=== PATIENT | female | born 1935 | race Caucasian/White ===

== ENCOUNTER 2018-07-14 22:27 | Emergency (ER) | payer MEDICARE, MEDICAID ==
[2018-07-15 00:45] LABS: APPEARANCE,URINE CLEAR; BILIRUBIN,URINE NEGATIVE (NEGATIVE); COLOR,URINE STRAW; GLUCOSE, URINE NEGATIVE (NEGATIVE); KETONES,URINE NEGATIVE (NEGATIVE); LEUKOCYTE ESTERASE,URINE SMALL (NEGATIVE); NITRITE,URINE NEGATIVE (NEGATIVE); PROTEIN,URINE NEGATIVE (NEGATIVE); URINE SPECIFIC GRAVITY 1.006; UROBILINOGEN,URINE NEGATIVE mg/dL (<2.0)
--- NOTE | 2018-07-15 00:47 | ER Document Report ---
ED General - General Chief Complaint: Fever/congestion/cough Stated Complaint: SHORTNESS OF BREATH,FEVER,COUGH Time Seen by Provider: 07/15/18 00:47 Primary Care Provider: JOEL HARRIS MD [ACTIVE STAFF] - Follow up as needed Mode of Arrival: Ambulatory Information source: Patient, Relative Notes: HISTORY OF PRESENT ILLNESS: Patient is an 83-year-old female with a past medical history of coronary artery disease, diabetes, hypertension, and "getting bronchitis every winter" who presents with 3 days of subjective fever and productive cough. Location: Chest Onset: 3 days ago Alleviation: None Provocation: Coughing Quality: Tightness, "I feel like I have a lot of phlegm in my chest" Radiation: None Severity: Mild Timing: Intermittent, episodic when she coughs History of CAD: Yes Known sick contact: Yes, her daughter had "pneumonia a month ago" Associated symptoms: Subjective fevers at home, no nausea or vomiting, no shortness of breath REVIEW OF SYSTEMS: CONSTITUTIONAL : Positive fevers but no chills or sweats, no diaphoresis. EENT: Denies eye, ear, throat, or mouth pain or symptoms. Denies nasal or sinus congestion. CARDIOVASCULAR: Positive for chest "tightness." Denies swelling of the legs. RESPIRATORY: Denies cough, cold, or chest congestion. Denies shortness of breath or difficulty breathing. Denies wheezing. GASTROINTESTINAL: Denies abdominal pain. Denies nausea, vomiting, or diarrhea. Denies constipation. GENITOURINARY: Denies difficulty urinating, painful urination, burning, frequency, or blood in urine. FEMALE GENITOURINARY: Denies vaginal bleeding, abnormal or irregular periods. MUSCULOSKELETAL: Denies neck or back pain or joint pain or swelling. SKIN: Denies rash or skin lesions. HEMATOLOGIC : Denies easy bruising or bleeding. LYMPHATIC: Denies swollen, enlarged glands. NEUROLOGICAL: Denies altered mental status or loss of consciousness. Denies headache. Denies weakness or paralysis or loss of use of either side. Denies problems with gait or speech. Denies sensory or motor loss. PSYCHIATRIC: Denies anxiety or stress or depression. All other systems reviewed and negative. PHYSICAL EXAMINATION: GENERAL: Well-appearing, well-nourished and in no acute distress. HEAD: Atraumatic, normocephalic. No scalp deformity, depression, or crepitance. EYES: Pupils are 3 mm and equal/round/reactive to light, extraocular movements intact, sclera anicteric, conjunctiva are normal. ENT: Nares patent bilaterally, oropharynx. Moist mucous membranes. No tonsil hypertrophy. NECK: Normal range of motion, supple without lymphadenopathy. LUNGS: Breath sounds present, equal, and clear to auscultation bilaterally. No wheezes, rales, or rhonchi. HEART: Regular rate and rhythm without murmurs, rubs, or gallops. 2+ peripheral pulses. Normal capillary refill. ABDOMEN: Soft, nontender, nondistended. Normoactive bowel sounds. No guarding, no rebound. No masses appreciated. BACK: Normal contour, no midline tenderness. Rectal exam deferred. GENITAL/PELVIC: Deferred. EXTREMITIES: Normal range of motion, no pitting or edema. No cyanosis. NEUROLOGICAL: No focal neurological deficits. Moves all extremities spontaneously and on command. PSYCH: Normal mood, normal affect. No suicidal thoughts/ideations. No homocidal thoughts/ideations. No hallucinations. SKIN: Warm, dry, normal turgor, no rashes or lesions noted. ASSESSMENT AND PLAN: This patient is an 83-year-old female who presents with fever and productive cough that could represent viral syndrome versus bronchitis versus community acquired pneumonia versus heart failure. 1. Will obtain labs, cardiac enzymes, chest x-ray, and reassess. 2. Will give empiric azithromycin. TRAVEL OUTSIDE OF THE [place] IN LAST 30 DAYS: No - Related Data Allergies/Adverse Reactions: propoxyphene napsylate [From Darvocet-N 100] Allergy (Unknown, Verified 07/14/18 23:32) oxycodone HCl [From Percocet] Allergy (Verified 07/14/18 23:32) Past Medical History - General Information source: Patient, Relative - Social History Smoking Status: Unknown if Ever Smoked Chew tobacco use (# tins/day): No Frequency of alcohol use: None Drug Abuse: None Lives with: Family Family History: Reviewed & Not Pertinent Patient has suicidal ideation: No Patient has homicidal ideation: No - Past Medical History Cardiac Medical History: Reports: Hx Coronary Artery Disease, Hx Hy percholesterolemia, Hx Hypertension Pulmonary Medical History: Reports: Hx Bronchitis Denies: Hx Tuberculosis EENT Medical History: Reports: None Neurological Medical History: Reports: None. Denies: Hx Seizures Endocrine Medical History: Reports: Hx Diabetes Mellitus Type 2, Hx Hypothyroidism Renal/ Medical History: Reports: None. Denies: Hx Peritoneal Dialysis Malignancy Medical History: Reports: Hx Skin Cancer GI Medical History: Reports: Hx Gastroesophageal Reflux Disease Musculoskeletal Medical History: Reports Hx Arthritis Skin Medical History: Reports None Psychiatric Medical History: Reports: None Denies: Hx Depression Traumatic Medical History: Reports: None Infectious Medical History: Reports: None Past Surgical History: Reports: Hx Cardiac Catheterization - stent x1, Hx Hysterectomy, Hx Orthopedic Surgery - right hip replacement. Denies: Hx Pacem shobha - Immunizations Immunizations up to date: Yes Hx Diphtheria, Pertussis, Tetanus Vaccination: No Hx Pneumococcal Vaccination: 06/10/08 Physical Exam - Vital signs Vitals: Temp Pulse Resp BP Pulse Ox 98.8 F 85 18 149/57 H 96 07/14/18 22:36 07/14/18 22:36 07/14/18 22:36 07/14/18 22:36 07/14/18 22:36 Course - Re-evaluation Re-evalutation: 07/15/18 03:21 Chest x-ray shows possible developing right-sided infiltrate, which considering presenting symptoms is consistent with either bronchitis or developing pneumonia. Lab work, including cardiac enzymes, or normal. Patient will be given antibiotics and will be discharged home with return precautions and follow-up with her primary physician in 1 week. But the patient and her daughter at bedside voiced understanding and agreeing with the plan. - Vital Signs Vital signs: Temp Pulse Resp BP Pulse Ox 98.8 F 85 24 H 177/59 H 95 07/14/18 22:36 07/14/18 22:36 07/15/18 03:01 07/15/18 03:01 07/15/18 03:01 - Laboratory Result Diagrams: 07/15/18 01:04 07/15/18 01:04 Laboratory results interpreted by me: 07/15/18 07/15/18 07/15/18 00:31 01:04 01:04 Hgb 10.9 L Hct 32.2 L Monocytes % 17.3 H Eosinophils % 8.2 H Absolute Monocytes 1.8 H Absolute Eosinophils 0.9 H BUN 23 H Creatinine 1.32 H Est GFR ( Amer) 47 L Est GFR (Non-Af Amer) 39 L Ur Leukocyte Esterase SMALL H - Diagnostic Test Radiology reviewed: Image reviewed, Reports reviewed - EKG Interpretation by Me EKG shows normal: Sinus rhythm Rate: Normal Rhythm: NSR [place]/QRS: No: Right axis deviation, Left axis deviation, RBBB, LBBB, IVCD, LAHB/LAFB, LPHB/LPFB, Bifasicular block Voltage: No: Increased voltage, Consistant with LVH, Decreased voltage, Thr oughout, Limb leads P Waves: No: HERNANDEZ, LAE, Absent, AV Dissociation, Other When compared to previous EKG there are: No significant change Discharge - Discharge Clinical Impression: Cough Community acquired pneumonia Qualifiers: Laterality: right Lung location: middle lobe of lung Qualified Code(s): J18.1 - Lobar pneumonia, unspecified organism Condition: Good Disposition: HOME, SELF-CARE Instructions: Pneumonia ([facility]) Additional Instructions: You have been evaluated in the Emergency Department for fever and cough secondary to a lung infection that could be an early pneumonia. Please follow-up with your primary physician as instructed in 1 week to be rechecked. You also will be given prescriptions for both cough and antibiotics, take these as instructed. Return to the Emergency Department if you experience chest pain, trouble breathing, high fevers, or any other concerning symptoms. Prescriptions: Azithromycin 500 mg PO DAILY #7 tablet Benzonatate [Tessalon Perles 100 mg Capsule] 100 mg PO ASDIR PRN #40 capsule PRN Reason: Referrals: JOEL HARRIS MD [ACTIVE STAFF] - Follow up as needed Print Language: Citizen [place]
--- NOTE | 2018-07-15 01:01 | RADIOLOGY REPORT (SQ) ---
EXAM DESCRIPTION: XR CHEST 1 VIEW COMPLETED DATE/TME: 07/15/2018 00:25 CLINICAL HISTORY: 83 years, Female, shortness of breath COMPARISON: 08/02/2014 chest NUMBER OF VIEWS: 1 TECHNIQUE: Portable chest LIMITATIONS: None. FINDINGS: The heart size is stable. The left costophrenic angle was not included on the exam. Patchy airspace opacity medial right lung base. Mild elevation right hemidiaphragm. No pneumothorax. Osteopenia. Atheromatous change thoracic aorta. IMPRESSION: Patchy airspace opacity medial right lung base. Follow-up recommended. copyright 2010 [employer]- All Rights Reserved
[2018-07-15 01:16] LABS: ABSOLUTE BASOPHILS # (AUTO) 0.1 10^3/uL (0.0-0.2); ABSOLUTE EOSINOPHILS # (AUTO) 0.9 10^3/uL (0.0-0.6); ABSOLUTE LYMPHOCYTES (AUTO) 2.5 10^3/uL (0.5-4.7); ABSOLUTE MONOCYTES (AUTO) 1.8 10^3/uL (0.1-1.4); ABSOLUTE NEUT (AUTO) 5.2 10^3/uL (1.7-8.2); BASOPHILS % (AUTO) 0.7 % (0-2); EOSINOPHILS % (AUTO) 8.2 % (0-6); HEMATOCRIT 32.2 % (36.0-47.0); HEMOGLOBIN 10.9 g/dL (12.0-15.5); LYMPHOCYTES % (AUTO) 23.8 % (13-45); MEAN CORPUSCULAR HEMOGLOBIN 28.5 pg (27.0-33.4); MEAN CORPUSCULAR HGB CONC 33.8 g/dL (32.0-36.0); MEAN CORPUSCULAR VOLUME 84 fl (80-97); MONOCYTES % (AUTO) 17.3 % (3-13); PLATELET COUNT 273 10^3/uL (150-450); RED BLOOD COUNT 3.81 10^6/uL (3.72-5.28); RED CELL DISTRIBUTION WIDTH 13.2 % (11.5-14.0); TOTAL CELLS COUNTED % (AUTO) 100 %; WHITE BLOOD COUNT 10.5 10^3/uL (4.0-10.5)
[2018-07-15 01:33] LABS: ALANINE AMINOTRANSFERASE 23 U/L (9-52); ALBUMIN 4.1 g/dL (3.5-5.0); ALKALINE PHOSPHATASE 57 U/L (38-126); ANION GAP 9 (5-19); ASPARTATE AMINO TRANSFERASE 30 U/L (14-36); BILIRUBIN,DIRECT 0.3 mg/dL (0.0-0.4); BILIRUBIN,TOTAL 0.5 mg/dL (0.2-1.3); BLOOD UREA NITROGEN 23 mg/dL (7-20); CALCIUM 8.8 mg/dL (8.4-10.2); CARBON DIOXIDE 26 mmol/L (22-30); CHLORIDE 104 mmol/L (98-107); GLUCOSE 106 mg/dL (75-110); POTASSIUM 3.8 mmol/L (3.6-5.0); SODIUM 138.8 mmol/L (137-145)
[2018-07-15] MEDS ORDERED: ALBUTEROL SULFATE HFA (90 MCG/PUFF) 200 PUFF/8.5 GM MDI IH PRN (02:42)
[2018-07-15] MEDS ORDERED: AZITHROMYCIN 250 MG TABLET PO ONE (02:42)
[2018-07-15 03:32] VITALS: BP 177/59
== END 2018-07-15 03:45 | disposition home or self-care (01) ==
LOC: ER 22:27
DX: J18.1 Lobar pneumonia, unspecified organism (principal); R05 Cough; R50.9 Fever, unspecified; R09.81 Nasal congestion; R06.02 Shortness of breath; E11.9 Type 2 diabetes mellitus without complications; I25.10 Atherosclerotic heart disease of native coronary artery without angina pectoris; I10 Essential (primary) hypertension
CPT/HCPCS: 99283; 36415; 85025; 80053; 81001; 84484; 71045; A9270; J3490

== ENCOUNTER 2018-09-08 14:33 | Inpatient (IN) | payer MEDICARE, MEDICAID ==
[2018-09-08] MEDS ORDERED: NORMAL SALINE 1000 ML 1,000 ML IV ONE (15:38)
[2018-09-08] MEDS ORDERED: ONDANSETRON HCL INJ/PF 4 MG/2 ML SDV IV ONE ×2 (15:38→18:46)
--- NOTE | 2018-09-08 15:40 | ER Document Report ---
ED Medical Screen (RME) - General Chief Complaint: Nausea/Vomiting Stated Complaint: NAUSEA,VOMITING,ABDOMINAL PAIN Time Seen by Provider: 09/08/18 15:29 Primary Care Provider: ADENIKE HERBERT PA-C [Primary Care Provider] - Follow up as needed Mode of Arrival: Medic Information source: Patient Notes: Patient is an 83-year-old female who presents to the emergency department with nausea, vomiting and diarrhea that started on Saturday. Family reports she has had multiple episodes of syncope. Denies fever. Today patient also reports vaginal bleeding over the last several days. Exam: Abdomen diffusely tender. I have greeted and performed a rapid initial assessment of this patient. A comprehensive ED assessment and evaluation of the patient, analysis of test r esults and completion of the medical decision making process will be conducted by additional ED providers. Dictation of this chart was performed using voice recognition software; therefore, there may be some unintended grammatical errors. TRAVEL OUTSIDE OF THE [place] IN LAST 30 DAYS: No - Related Data Allergies/Adverse Reactions: propoxyphene napsylate [From Darvocet-N 100] Allergy (Unknown, Verified 09/08/18 14:36) oxycodone HCl [From Percocet] Allergy (Verified 09/08/18 14:36) Past Medical History - Social History Chew tobacco use (# tins/day): No Frequency of alcohol use: None Drug Abuse: None - Past Medical History Cardiac Medical History: Reports: Hx Coronary Artery Disease, Hx Hypercholesterolemia, Hx Hypertension Pulmonary Medical History: Reports: Hx Bronchitis Denies: Hx Tuberculosis Neurological Medical History: Denies: Hx Seizures Endocrine Medical History: Reports: Hx Diabetes Mellitus Type 2, Hx Hypothyroidism Renal/ Medical History: Denies: Hx Peritoneal Dialysis Malignancy Medical History: Reports: Hx Skin Cancer GI Medical History: Reports: Hx Gastroesophageal Reflux Disease Musculoskeltal Medical History: Reports Hx Arthritis Psychiatric Medical History: Denies: Hx Depression Past Surgical History: Reports: Hx Cardiac Catheterization - stent x1, Hx Hysterectomy, Hx Orthopedic Surgery - right hip replacement. Denies: Hx Pacemaker - Immunizations Immunizations up to date: Yes Hx Diphtheria, Pertussis, Tetanus Vaccination: No Physical Exam - Vital signs Vitals: Pulse Resp BP Pulse Ox 101 H 18 171/71 H 97 09/08/18 14:51 09/08/18 14:51 09/08/18 14:51 09/08/18 14:51 Course - Vital Signs Vital signs: Temp Pulse Resp BP Pulse Ox 101 H 18 171/71 H 97 09/08/18 14:51 09/08/18 14:51 09/08/18 14:51 09/08/18 14:51 Doctor's Discharge - Discharge Referrals: ADNEIKE HERBERT PA-C [Primary Care Provider] - Follow up as needed
[2018-09-08 16:25] LABS: ABSOLUTE BASOPHILS # (AUTO) 0.2 10^3/uL (0.0-0.2); ABSOLUTE LYMPHOCYTES (AUTO) 1.5 10^3/uL (0.5-4.7); ABSOLUTE NEUT (AUTO) 12.9 10^3/uL (1.7-8.2); EOSINOPHILS % (AUTO) 0.1 % (0-6); HEMATOCRIT 37.2 % (36.0-47.0); HEMOGLOBIN 12.4 g/dL (12.0-15.5); LYMPHOCYTES % (AUTO) 9.9 % (13-45); MEAN CORPUSCULAR HEMOGLOBIN 28.1 pg (27.0-33.4); MEAN CORPUSCULAR HGB CONC 33.2 g/dL (32.0-36.0); MEAN CORPUSCULAR VOLUME 85 fl (80-97); MONOCYTES % (AUTO) 6.5 % (3-13); PLATELET COUNT 375 10^3/uL (150-450); RED BLOOD COUNT 4.41 10^6/uL (3.72-5.28); RED CELL DISTRIBUTION WIDTH 13.8 % (11.5-14.0); SEGMENTED NEUTROPHILS % (AUTO) 82.5 % (42-78); TOTAL CELLS COUNTED % (AUTO) 100 %; WHITE BLOOD COUNT 15.7 10^3/uL (4.0-10.5)
[2018-09-08 17:01] LABS: ALANINE AMINOTRANSFERASE 20 U/L (9-52); ALBUMIN 4.8 g/dL (3.5-5.0); ALKALINE PHOSPHATASE 55 U/L (38-126); ANION GAP 13 (5-19); ASPARTATE AMINO TRANSFERASE 34 U/L (14-36); BILIRUBIN,DIRECT 0.6 mg/dL (0.0-0.4); BILIRUBIN,TOTAL 0.8 mg/dL (0.2-1.3); BLOOD UREA NITROGEN 28 mg/dL (7-20); CALCIUM 10.4 mg/dL (8.4-10.2); CARBON DIOXIDE 24 mmol/L (22-30); CHLORIDE 102 mmol/L (98-107); GLUCOSE 143 mg/dL (75-110); LIPASE 39.4 U/L (23-300); POTASSIUM 3.8 mmol/L (3.6-5.0); SODIUM 139.3 mmol/L (137-145); TOTAL PROTEIN 8.6 g/dL (6.3-8.2)
--- NOTE | 2018-09-08 17:36 | ER Document Report ---
ED GI/ - General Mode of Arrival: Medic Information source: Patient, Relative TRAVEL OUTSIDE OF THE [place] IN LAST 30 DAYS: No - HPI Patient complains to provider of: Abdominal pain, Diarrhea, Vaginal bleeding - 2 weeks ago, none since, Vomiting. No: Dysuria, Pelvic pain Onset: Other - 2 days Timing/Duration: Persistent Quality of pain: Achy Pain Level: 2 Location: Other - Generalized abdomen Vaginal bleeding (Compared to normal period): Spotting - 2 weeks ago, none since Associated symptoms: Diarrhea, Lightheaded, Loss of appetite, Nausea, Vomiting. denies: Dysuria, Fever, Urinary hesitancy, Urinary frequency, Urinary retention Exacerbated by: Denies Relieved by: Denies Similar symptoms previously: No Recently seen / treated by doctor: No <DION PADILLA - Last Filed: 09/08/18 20:26> <CARINA CESPEDES - Last Filed: 09/09/18 03:30> - General Chief Complaint: Nausea/Vomiting Stated Complaint: NAUSEA,VOMITING,ABDOMINAL PAIN Time Seen by Provider: 09/08/18 15:29 Notes: Patient presents with a 2-day history of nausea vomiting and diarrhea. Patient states she is vomited over 5 times today. Patient does complain of generalized abdominal pain and distention. Patient also reports having an episode of vaginal bleeding 2 weeks ago only for a few days. Patient states she had a very small amount of vaginal bleeding. Patient reports decreased appetite. No fever. Patient has had some dizziness with ambulation. Patient normally ambulates unassisted at home. (DION PADILLA) - Related Data Allergies/Adverse Reactions: propoxyphene napsylate [From Darvocet-N 100] Allergy (Unknown, Verified 09/08/18 14:36) oxycodone HCl [From Percocet] Allergy (Verified 09/08/18 14:36) Past Medical History - General Information source: Patient - Social History Smoking Status: Never Smoker Chew tobacco use (# tins/day): No Frequency of alcohol use: None Drug Abuse: None Lives with: Family Family History: Reviewed & Not Pertinent Patient has suicidal ideation: No Patient has homicidal ideation: No - Past Medical History Cardiac Medical History: Reports: Hx Coronary Artery Disease, Hx Hypercholesterolemia, Hx Hypertension Pulmonary Medical History: Reports: Hx Bronchitis Denies: Hx Tuberculosis Neurological Medical History: Denies: Hx Seizures Endocrine Medical History: Reports: Hx Diabetes Mellitus Type 2, Hx Hypothyroidism Renal/ Medical History: Denies: Hx Peritoneal Dialysis Malignancy Medical History: Reports: Hx Skin Cancer GI Medical History: Reports: Hx Gastroesophageal Reflux Disease Musculoskeletal Medical History: Reports Hx Arthritis Psychiatric Medical History: Denies: Hx Depression Past Surgical History: Reports: Hx Cardiac Catheterization - stent x1, Hx Hysterectomy, Hx Orthopedic Surgery - right hip replacement. Denies: Hx Pacemaker - Immunizations Immunizations up to date: Yes Hx Diphtheria, Pertussis, Tetanus Vaccination: No Hx Pneumococcal Vaccination: 06/10/08 <DION PADILLA - Last Filed: 09/08/18 20:26> Review of Systems - Review of Systems Constitutional: No symptoms reported. denies: Fever EENT: No symptoms reported Cardiovascular: Lightheaded. denies: Chest pain, Palpitations Respiratory: No symptoms reported. denies: Cough Gastrointestinal: Abdominal pain, Diarrhea, Nausea, Vomiting, Poor appetite Genitourinary: No symptoms reported. denies: Dysuria, Flank pain Female Genitourinary: Vaginal bleeding - 2 weeks ago, none since. denies: Vaginal discharge Musculoskeletal: No symptoms reported. denies: Back pain Skin: No symptoms reported Hematologic/Lymphatic: No symptoms reported Neurological/Psychological: Weakness <DION PADILLA - Last Filed: 09/08/18 20:26> Physical Exam - General General appearance: Appears well, Alert In distress: Mild - HEENT Head: Normocephalic, Atraumatic Eyes: Normal Conjunctiva: Normal Nasal: Normal Mouth/Lips: Normal Mucous membranes: Normal Neck: Normal, Supple. No: Lymphadenopathy - Respiratory Respiratory status: No respiratory distress Chest status: Nontender Breath sounds: Normal. No: Rales, Rhonchi, Stridor, Wheezing Chest palpation: Normal - Cardiovascular Rhythm: Regular Heart sounds: S1 appreciated, S2 appreciated Murmur: No - Abdominal Inspection: Obese Distension: No distension Bowel sounds: Normal Tenderness: Tender - Diffusely tender Organomegaly: No organomegaly - Genitourinary External exam: Other - Out erythema to the vaginal introitus Speculum exam: Other - Post surgical changes consistent with history of hysterec alicia Vaginal bleeding: None Bimanuel exam: Normal, Other - No palpable bulges or masses, no blood noted to glove after bimanual examination. No: Adnexal mass - Back Back: Normal, Nontender. No: CVA tenderness - Extremities General upper extremity: Normal inspection, Normal ROM General lower extremity: Normal inspection - Neurological Neuro grossly intact: Yes Michael Coma Scale Eye Opening: Spontaneous Michael Coma Scale Verbal: Oriented Michael Coma Scale Motor: Obeys Commands [place] Coma Scale Total: 15 - Psychological Associated symptoms: Normal affect, Normal mood - Skin Skin Temperature: Warm Skin Moisture: Dry Skin Color: Pale <DION PADILLA - Last Filed: 09/08/18 20:26> - Vital signs Vitals: Pulse Resp BP Pulse Ox 101 H 18 171/71 H 97 09/08/18 14:51 09/08/18 14:51 09/08/18 14:51 09/08/18 14:51 Course - Laboratory Result Diagrams: 09/08/18 16:04 09/08/18 16:04 <DION PADILLA - Last Filed: 09/08/18 20:26> - Laboratory Result Diagrams: 09/08/18 16:04 09/08/18 16:04 <CARINA CESPEDES - Last Filed: 09/09/18 03:30> - Re-evaluation Re-evalutation: 09/08/18 18:46 Patient complains of nausea while drinking oral contrast for CT scan. Patient continues with diffuse generalized abdominal tenderness with some nominal bloating. 09/08/18 19:20 Patient vomiting oral contrast at this time. Nausea medications have been ordered. 09/08/18 20:26 Bedside report and handoff given to Obinna FOSTER (DION PADILLA) Patient CT abdomen pelvis does show possible small bowel obstruction. Patient was unable to take any of the oral contrast due to vomiting. Discussed this case with surgeon Dr. Gamez who states the patient should be admitted, he will speak with hospitalist Dr. Arevalo. Patient will be admitted through Dr. Arevalo for's continued abdominal pain and vomiting, possible small bowel obstruction with surgery consult. NG tube ordered per Dr. Gamez and Dr. Arevalo. (CARINA CESPEDES) - Vital Signs Vital signs: Temp Pulse Resp BP Pulse Ox 98.2 F 92 16 141/57 H 95 09/09/18 02:17 09/09/18 02:17 09/09/18 02:17 09/09/18 03:09 09/09/18 02:17 - Laboratory Laboratory results interpreted by me: 09/08/18 09/08/18 09/08/18 16:04 16:04 16:04 WBC 15.7 H Seg Neutrophils % 82.5 H Lymphocytes % 9.9 L Absolute Neutrophils 12.9 H BUN 28 H Creatinine 1.41 H Est GFR ( Amer) 43 L Est GFR (Non-Af Amer) 36 L Glucose 143 H Calcium 10.4 H Direct Bilirubin 0.6 H Creatine Kinase 147 H Total Protein 8.6 H Urine Protein Ur Leukocyte Esterase 09/08/18 18:09 WBC Seg Neutrophils % Lymphocytes % Absolute Neutrophils BUN Creatinine Est GFR ( Amer) Est GFR (Non-Af Amer) Glucose Calcium Direct Bilirubin Creatine Kinase Total Protein Urine Protein 100 H Ur Leukocyte Esterase TRACE H Discharge <DION PADILLA - Last Filed: 09/08/18 20:26> - Discharge Admitting Provider: Hospitalist - Dr. Arevalo Unit Admitted: Medical Floor <CARINA CESPEDES - Last Filed: 09/09/18 03:30> - Discharge Clinical Impression: Abdominal pain Qualifiers: Abdominal location: generalized Qualified Code(s): R10.84 - Generalized abdominal pain Intractable nausea and vomiting Qualifiers: Vomiting type: unspecified Qualified Code(s): R11.2 - Nausea with vomiting, unspecified Condition: Stable Disposition: ADMITTED INPATIENT
[2018-09-08 18:08] LABS: INTERNATIONAL RATION (INR) 0.92; PROTHROMBIN TIME 12.8 SEC (11.4-15.4)
[2018-09-08 18:09] LABS: PARTIAL THROMBOPLASTIN TIME 26.9 SEC (23.5-35.8)
[2018-09-08 18:37] LABS: CREATINE KINASE MB 0.9 ng/mL (<4.55)
[2018-09-08 18:41] LABS: TROPONIN I 0.015 ng/mL
[2018-09-08] MEDS ORDERED: ACETAMINOPHEN 325 MG TABLET PO ONE (18:46)
[2018-09-08] MEDS ORDERED: CARVEDILOL 6.25 MG TABLET PO ONE (18:51)
--- NOTE | 2018-09-08 19:35 | EKG REPORT ---
SEVERITY:- ABNORMAL ECG - SINUS RHYTHM PROBABLE LEFT ATRIAL ABNORMALITY [facility] : Confirmed by: Keith Elam MD 08-Sep-2018 19:35:00
[2018-09-08 20:35] LABS: APPEARANCE,URINE CLEAR; BILIRUBIN,URINE NEGATIVE (NEGATIVE); COLOR,URINE YELLOW; GLUCOSE, URINE NEGATIVE (NEGATIVE); KETONES,URINE NEGATIVE (NEGATIVE); LEUKOCYTE ESTERASE,URINE TRACE (NEGATIVE); NITRITE,URINE NEGATIVE (NEGATIVE); PROTEIN,URINE 100 mg/dL (NEGATIVE); URINE SPECIFIC GRAVITY 1.012; UROBILINOGEN,URINE NEGATIVE mg/dL (<2.0)
[2018-09-08] MEDS ORDERED: ACETAMINOPHEN 325 MG TABLET ONE (21:04)
[2018-09-08] MEDS ORDERED: CARVEDILOL 6.25 MG TABLET ONE (21:04)
--- NOTE | 2018-09-08 22:10 | RADIOLOGY REPORT (SQ) ---
EXAM DESCRIPTION: CT ABDOMEN PELVIS WITH IV CONTRAST COMPLETED DATE/TME: 09/08/2018 00:00 CLINICAL HISTORY: 83 years, Female, vomiting, abd pain, hx vaginal bleeding (hyst) COMPARISON: 05/05/2012 CT TECHNIQUE: 402 Images stored on PACS. All CT scanners at this facility use dose modulation, iterative reconstruction, and/or weight based dosing when appropriate to reduce radiation dose to as low as reasonably achievable (ALARA). [facility]: Dose Right [facility]: CareDose [facility]: Dose Right [facility]: Teradose 4D [facility]: [employer] LIMITATIONS: None. FINDINGS: Limited evaluation of the lung bases shows minimal left basilar infiltrate. Osseous structures are grossly intact. The liver is unremarkable. Splenic granulomata. The adrenal glands, pancreas, kidneys are unremarkable. The gallbladder is present. Severe atheromatous changes. Postsurgical changes of the right hip with streak artifact limiting portions of the pelvis. Extensive colonic diverticulosis. No CT evidence for diverticulitis. There are several borderline to mildly dilated fluid and contrast filled loops of small bowel in the upper abdomen with relative decompression of small bowel loops distally. While findings could reflect ileus, a partial or incomplete obstruction should also be considered. No free air or free fluid. IMPRESSION: Several borderline to mildly dilated fluid-filled loops of small bowel with relative decompression of distal small bowel loops. A partial or incomplete obstruction should be considered. No free air or free fluid. Colonic diverticulosis without CT evidence for diverticulitis. Left basilar infiltrate. Evidence of prior granulomatous disease. Extensive atheromatous change. TECHNICAL DOCUMENTATION: Quality ID # [id number]: Final reports with documentation of one or more dose reduction techniques (e.g., Automated exposure control, adjustment of the mA and/or kV according to patient size, use of iterative reconstruction technique) copyright 2011 [employer]- All Rights Reserved
[2018-09-08] MEDS ORDERED: LIDOCAINE 2% INJ-PF (20 MG/ML) 10 ML AMPUL NEB ONE (23:20)
[2018-09-08] MEDS ORDERED: PHARMACY COMMUNICATION ORDER MC NR (23:30)
[2018-09-08] MEDS ORDERED: ACETAMINOPHEN 650 MG SUPP.RECT PR PRN (23:39)
[2018-09-08] MEDS ORDERED: MAG HYDROX/AL HYDROX/SIMETH SUSP 30 ML UDCUP PO PRN (23:39)
[2018-09-08] MEDS ORDERED: IPRATROPIUM/ALBUTEROL 0.5-2.5 MG/3 ML AMPUL NEB PRN (23:39)
[2018-09-08] MEDS ORDERED: DIAZEPAM 2 MG TABLET PO PRN (23:42)
[2018-09-08] MEDS ORDERED: NORMAL SALINE 1000 ML 1,000 ML IV PRN (23:45)
--- NOTE | 2018-09-08 23:50 | PDOC CONSULTATION ---
Consultation Consult Date: 09/08/18 Consult reason:: Abdominal pain History of Present Illness Admission Date/PCP: ADENIKE BREWER PA-C History of Present Illness: SANDRA SPRINGER is a 83 year old female Who presents emergency department via ground rescue complaining of a several day history of abdominal pain, nausea vomiting change in bowel habits. Pain mostly right-sided. Patient has progressively become weaker, with anorexia and weight loss. Patient is cared for by her daughter who accompanies her this evening. Patient seen in the emergency department where she had a CT scan of the abdomen and pelvis with some oral contrast demonstrated possible findings of partial small bowel obstruction. Surgery was consulted. Patient was advised admission to the medical service with surgery consulting. Patient's local medical doctor is Adenike brewer; patient is status post a colonoscopy several years ago with unremarkable findings. She has a remote history of a partial colon resection as a youth for benign indications.. In the emergency department she feels better but still having nausea and heaving. She has been hemodynamically stable. She denies previous gastrointestinal symptoms of this nature; she does have a history of peptic ulcer disease with bleeding requiring blood transfusions x2 in the past. In addition approximately 2 weeks ago patient had vaginal bleeding for unknown etiology. This was evaluated by her primary care physician to be of no clinical significance. Bleeding has now abated Past Medical History Cardiac Medical History: Reports: Coronary Artery Disease, Hyperlipidema, Hypertension Pulmonary Medical History: Reports: Bronchitis Denies: Tuberculosis Neurological Medical History: Denies: Seizures Endocrine Medical History: Reports: Diabetes Mellitus Type 2, Hypothyroidism Malignancy Medical History: Reports: Skin Cancer GI Medical History: Reports: Gastroesophageal Reflux Disease Musculoskeltal Medical History: Reports: Arthritis Psychiatric Medical History: Denies: Depression Hematology: Reports: Anemia Past Surgical History Past Surgical History: Also appendectomy, intestinal surgery as a youth Past Surgical History: Reports: Cardiac Catheterization - stent x1, Hysterectomy, Orthopedic Surgery - right hip replacement Denies: Pacemaker Social History Lives with: Family Smoking Status: Never Smoker Frequency of Alcohol Use: None Hx Recreational Drug Use: No Hx Prescription Drug Abuse: No Family History Family History: Reviewed & Not Pertinent Parental Family History Reviewed: Yes Children Family History Reviewed: Yes Sibling(s) Family History Reviewed.: Yes Medication/Allergy Home Medications: Atorvastatin Calcium [Lipitor 20 mg Tablet] 20 mg PO QHS 06/12/11 Clopidogrel Bisulfate [Plavix 75 mg Tablet] 75 mg PO DAILY 06/12/11 Furosemide [Lasix 40 mg Tablet] 40 mg PO QAM 06/12/11 Levothyroxine Sodium [Tirosint] 137 mcg PO DAILY 06/12/11 Nebivolol HCl [Bystolic] 5 mg PO BID 06/12/11 Potassium Chloride [Klor-Con 10 Meq Capsule ER] 10 meq PO DAILY 06/12/11 Ferrous Sulfate [Iron] 325 mg PO DAILY 06/16/11 Docusate Sodium [Colace 100 mg Capsule] 100 mg PO DAILY 05/05/12 Loratadine [Claritin 10 mg Tablet] 10 mg PO DAILY 05/05/12 Omeprazole 20 mg PO DAILY 05/05/12 Tramadol HCl [Ultram 50 mg Tablet] 50 mg PO BID PRN 05/05/12 Aspirin [Aspirin 325 mg Tablet] 325 mg PO DAILY 01/03/14 Capsaicin [Trixaicin] 60 gm TP BID PRN 01/03/14 Citalopram Hydrobromide [Celexa] 1 tab PO DAILY 01/03/14 Diazepam 2 mg PO DAILY PRN 01/03/14 Metformin HCl [Glucophage 500 mg Tablet] 500 mg PO BIDACBS 01/03/14 Nitroglycerin 0.4 mg SL ASDIR PRN 01/03/14 Levofloxacin [Levaquin] 500 mg PO DAILY #7 tablet 08/02/14 Azithromycin 500 mg PO DAILY #7 tablet 07/15/18 Benzonatate [Tessalon Perles 100 mg Capsule] 100 mg PO ASDIR PRN #40 capsule 07/15/18 Allergies/Adverse Reactions: propoxyphene napsylate [From Darvocet-N 100] Allergy (Unknown, Verified 09/08/18 14:36) oxycodone HCl [From Percocet] Allergy (Verified 09/08/18 14:36) Review of Systems ROS unobtainable: Due to mental status Physical Exam Vital Signs: Temp Pulse Resp BP Pulse Ox 98.9 F 101 H 20 168/71 H 94 09/08/18 19:33 09/08/18 14:51 09/08/18 20:01 09/08/18 20:01 09/08/18 20:01 Intake & Output 09/07/18 09/08/18 09/09/18 06:59 06:59 06:59 Intake Total 1000 Balance 1000 Weight 63.4 kg General appearance: PRESENT: mild distress Head exam: PRESENT: normocephalic Eye exam: PRESENT: EOMI Mouth exam: PRESENT: dry mucosa Neck exam: PRESENT: full ROM Respiratory exam: PRESENT: decreased breath sounds Cardiovascular exam: PRESENT: RRR Pulses: PRESENT: normal carotid pulses, normal radial pulses, normal dorsalis pedis pul, +1 pedal pulses bilateral GI/Abdominal exam: PRESENT: other - Diffusely tender but no peritoneal signs no rigidity. Scars consistent with previous surgery. There are no groin hernias. Rectal exam: PRESENT: deferred Extremities exam: PRESENT: full ROM Musculoskeletal exam: PRESENT: ambulatory Neurological exam: PRESENT: awake, oriented to person, oriented to place, oriented to time, oriented to situation Psychiatric exam: PRESENT: appropriate affect Skin exam: PRESENT: dry Results Laboratory Results: 09/08/18 16:04 09/08/18 16:04 09/08/18 09/08/18 09/08/18 16:04 16:04 18:09 WBC 15.7 H RBC 4.41 Hgb 12.4 Hct 37.2 MCV 85 MCH 28.1 MCHC 33.2 RDW 13.8 Plt Count 375 Seg Neutrophils % 82.5 H Lymphocytes % 9.9 L Monocytes % 6.5 Eosinophils % 0.1 Basophils % 1.0 Absolute Neutrophils 12.9 H Absolute Lymphocytes 1.5 Absolute Monocytes 1.0 Absolute Eosinophils 0.0 Absolute Basophils 0.2 Sodium 139.3 Potassium 3.8 Chloride 102 Carbon Dioxide 24 Anion Gap 13 BUN 28 H Creatinine 1.41 H Est GFR ( Amer) 43 L Est GFR (Non-Af Amer) 36 L Glucose 143 H Lactic Acid Calcium 10.4 H Total Bilirubin 0.8 AST 34 ALT 20 Alkaline Phosphatase 55 Total Protein 8.6 H Albumin 4.8 Lipase 39.4 Urine Color YELLOW Urine Appearance CLEAR Urine pH 7.0 Ur Specific [place] 1.012 Urine Protein 100 H Urine Glucose (UA) NEGATIVE Urine Ketones NEGATIVE Urine Blood NEGATIVE Urine Nitrite NEGATIVE Ur Leukocyte Esterase TRACE H Urine WBC (Auto) 2 Urine RBC (Auto) 0 09/08/18 20:54 WBC RBC Hgb Hct MCV MCH MCHC RDW Plt Count Seg Neutrophils % Lymphocytes % Monocytes % Eosinophils % Basophils % Absolute Neutrophils Absolute Lymphocytes Absolute Monocytes Absolute Eosinophils Absolute Basophils Sodium Potassium Chloride Carbon Dioxide Anion Gap BUN Creatinine Est GFR ( Amer) Est GFR (Non-Af Amer) Glucose Lactic Acid 0.8 Calcium Total Bilirubin AST ALT Alkaline Phosphatase Total Protein Albumin Lipase Urine Color Urine Appearance Urine pH Ur Specific [place] Urine Protein Urine Glucose (UA) Urine Ketones Urine Blood Urine Nitrite Ur Leukocyte Esterase Urine WBC (Auto) Urine RBC (Auto) 09/08/18 09/08/18 16:04 16:04 Creatine Kinase 147 H CK-MB (CK-2) 0.90 Troponin I 0.015 Impressions: Abdomen/Pelvis CT 09/08/18 00:00 IMPRESSION: Several borderline to mildly dilated fluid-filled loops of small bowel with relative decompression of distal small bowel loops. A partial or incomplete obstruction should be considered. No free air or free fluid. Colonic diverticulosis without CT evidence for diverticulitis. Left basilar infiltrate. Evidence of prior granulomatous disease. Extensive atheromatous change. TECHNICAL DOCUMENTATION: Quality ID # 436: Final reports with documentation of one or more dose reduction techniques (e.g., Automated exposure control, adjustment of the mA and/or kV according to patient size, use of iterative reconstruction technique) copyright 2011 [employer]- All Rights Reserved Assessment & Plan - Diagnosis (1) Abdominal pain Qualifiers: Abdominal location: generalized Qualified Code(s): R10.84 - Generalized abdominal pain Is this a current diagnosis for this admission?: Yes Plan: Impression: Subacute abdominal pain nausea vomiting anorexia, failure to thrive and near syncopal episode; superimposed on several month history of anorexia and fatigue. No evidence of acute abdomen on physical examination. Tentative diagnoses include partial small bowel obstruction, low suspicion for ischemic bowel, gastroenteritis. In light of lateness of the hour, advanced patient age, leukocytosis, and persisting nausea despite antiemetic therapy, admission is recommended. Recommendations: 1. I spoke with Dr. Marek Arevalo who is agreed to admit the patient to the hospital service; surgery will function in a consulting capacity. At this time there is no clinical indication for exploratory surgery. 2. Agree with plans for urine analysis, nasogastric tube insertion, additional IV fluids. 3. We will reassess patient in the morning; further recommendations to follow if clinical condition deteriorates. The above discussed with patient patient's daughter who lives healthcare power of assistant district attorney. (2) Weight loss Is this a current diagnosis for this admission?: Yes (3) Hyperlipidemia Is this a current diagnosis for this admission?: Yes (4) Hypertension Is this a current diagnosis for this admission?: Yes (5) Hypothyroidism Is this a current diagnosis for this admission?: Yes (6) Near syncope Is this a current diagnosis for this admission?: Yes (7) Weakness generalized Is this a current diagnosis for this admission?: Yes - Time Time Spent: 30 to 50 Minutes Smoking Cessation Education: 3 to 10 minutes Medications reviewed and adjusted accordingly: Yes Anticipated discharge: Home - Inpatient Certification Based on my medical assessment, after consideration of the patient's comorbidities, presenting symptoms, or acuity I expect that the services needed warrant INPATIENT care.: Yes I certify that my determination is in accordance with my understanding of Medicare's requirements for reasonable and necessary INPATIENT services [42 CFR 412.3e].: Yes Medical Necessity: Need For IV Fluids, Need for Pain Control, Need for IV Antibiotics, Need for Surgery
[2018-09-09] MEDS ORDERED: LIDOCAINE 2% INJ-PF (20 MG/ML) 10 ML AMPUL ONE (00:04)
[2018-09-09] MEDS ORDERED: LORAZEPAM INJ 2 MG/1 ML VIAL IV ONE (00:35)
[2018-09-09] MEDS ORDERED: ONDANSETRON HCL INJ/PF 4 MG/2 ML SDV IV ONE (00:37)
[2018-09-09 00:46] LABS: CREATINE KINASE MB 1.4 ng/mL (<4.55)
[2018-09-09 00:52] LABS: TROPONIN I 0.076 ng/mL
--- NOTE | 2018-09-09 01:59 | RADIOLOGY REPORT (SQ) ---
EXAM DESCRIPTION: XR ABDOMEN 1 VIEW (KUB) COMPLETED DATE/TME: 09/08/2018 23:19 CLINICAL HISTORY: 83 years, Female, Check Placement of NG Tube COMPARISON: None. NUMBER OF VIEWS: 2 TECHNIQUE: AP abdomen LIMITATIONS: None. FINDINGS: Enteric tube tip is located near the GE junction on the image time stamped at 1:08 AM. On the subsequent image, with time stamp of 1:12 AM, the tip of the enteric tube is in the left upper quadrant and likely in the body of the stomach. No free air under the hemidiaphragms. IMPRESSION: Tip of the enteric tube likely in the body of the stomach on the second submitted image, as above copyright 2010 [employer]- All Rights Reserved
--- NOTE | 2018-09-09 04:57 | RADIOLOGY REPORT (SQ) ---
EXAM DESCRIPTION: CT ABDOMEN PELVIS WITHOUT IV CONTRAST COMPLETED DATE/TME: 09/08/2018 23:19 CLINICAL HISTORY: 83 years, Female, NG tube, SBO COMPARISON: 09/08/2018 CT TECHNIQUE: 305 Images stored on PACS. All CT scanners at this facility use dose modulation, iterative reconstruction, and/or weight based dosing when appropriate to reduce radiation dose to as low as reasonably achievable (ALARA). [facility]: Dose Right [facility]: CareDose [facility]: Dose Right [facility]: Teradose 4D [facility]: [employer] LIMITATIONS: None. FINDINGS: Limited evaluation of the lung bases shows calcified granuloma with minimal left basilar infiltrate and left lung base. Osseous structures are grossly intact. Enteric tube with the tip in the stomach. Contrast in the stomach. The visualized liver is unremarkable. Splenic granulomata. The adrenal glands, pancreas, are unremarkable. Subcentimeter right renal cysts are suggested. Right hip prosthesis, with artifact limiting portions of the pelvis. Sigmoid diverticulosis. Severe atheromatous changes are noted. Redemonstrated are several mildly prominent fluid-filled loops of small bowel, similar to the prior exam. Small bowel feces sign is noted, suggesting chronic stasis. A trace of free fluid in the pelvis is suggested. No free air. Relative decompression of the colon. IMPRESSION: Enteric tube in the stomach. Little change in the appearance of several mildly prominent fluid-filled loops of small bowel particularly in the right lower quadrant. Small bowel feces sign suggests chronic stasis. Partial or incomplete obstruction is not excluded. Trace of free fluid in the pelvis. Sigmoid diverticulosis. Evidence of prior granulomatous disease. TECHNICAL DOCUMENTATION: Quality ID # 436: Final reports with documentation of one or more dose reduction techniques (e.g., Automated exposure control, adjustment of the mA and/or kV according to patient size, use of iterative reconstruction technique) copyright 2010 [employer]- All Rights Reserved
--- NOTE | 2018-09-09 05:47 | PDOC H&P ---
History of Present Illness Admission Date/PCP: 09/08/18 23:49 ADENIKE HERBERT PA-C Patient complains of: Abdominal pain, nausea and vomiting History of Present Illness: SANDRA SPRINGER is a 83 year old female with a past medical history of diabetes, hypertension, dyslipidemia, hypothyroidism, coronary artery disease, diastolic heart failure, iron deficiency anemia, erosive gastritis, GERD and recurrent constipation. Patient presents with 4 days of abdominal pain developing nausea and vomiting of gastric content without blood, with constipation. Labs reveal mild acute renal failure, CT reveals partial small bowel obstruction versus ileus. She denies chest pain, recent viral prodrome or change in medications. NG tube is placed resulting in minimal aspirate and blood-tinged with suspicion of nasal trauma during NG placement. Past Medical History Cardiac Medical History: Reports: Coronary Artery Disease, Hyperlipidema, Hypertension Pulmonary Medical History: Reports: Bronchitis Denies: Tuberculosis Neurological Medical History: Denies: Seizures Endocrine Medical History: Reports: Diabetes Mellitus Type 2, Hypothyroidism Malignancy Medical History: Reports: Skin Cancer GI Medical History: Reports: Gastroesophageal Reflux Disease Musculoskeltal Medical History: Reports: Arthritis Psychiatric Medical History: Denies: Depression Hematology: Reports: Anemia Past Surgical History Past Surgical History: Reports: Cardiac Catheterization - stent x1, Hysterectomy, Orthopedic Surgery - right hip replacement Denies: Pacemaker Social History Information Source: Patient, [facility] Records Lives with: Family Smoking Status: Former Smoker Number of Years Smokin Frequency of Alcohol Use: None Hx Recreational Drug Use: No Hx Prescription Drug Abuse: No - Advance Directive Resuscitation Status: Full Code Family History Family History: COPD, DM Parental Family History Reviewed: Yes Children Family History Reviewed: Yes Sibling(s) Family History Reviewed.: Yes Medication/Allergy Home Medications: Atorvastatin Calcium [Lipitor 20 mg Tablet] 20 mg PO QHS 06/12/11 Clopidogrel Bisulfate [Plavix 75 mg Tablet] 75 mg PO DAILY 06/12/11 Furosemide [Lasix 40 mg Tablet] 40 mg PO QAM 06/12/11 Levothyroxine Sodium [Tirosint] 137 mcg PO DAILY 06/12/11 Nebivolol HCl [Bystolic] 5 mg PO BID 06/12/11 Potassium Chloride [Klor-Con 10 Meq Capsule ER] 10 meq PO DAILY 06/12/11 Ferrous Sulfate [Iron] 325 mg PO DAILY 06/16/11 Docusate Sodium [Colace 100 mg Capsule] 100 mg PO DAILY 05/05/12 Loratadine [Claritin 10 mg Tablet] 10 mg PO DAILY 05/05/12 Omeprazole 20 mg PO DAILY 05/05/12 Tramadol HCl [Ultram 50 mg Tablet] 50 mg PO BID PRN 05/05/12 Aspirin [Aspirin 325 mg Tablet] 325 mg PO DAILY 01/03/14 Capsaicin [Trixaicin] 60 gm TP BID PRN 01/03/14 Citalopram Hydrobromide [Celexa] 1 tab PO DAILY 01/03/14 Diazepam 2 mg PO DAILY PRN 01/03/14 Metformin HCl [Glucophage 500 mg Tablet] 500 mg PO BIDACBS 01/03/14 Nitroglycerin 0.4 mg SL ASDIR PRN 01/03/14 Levofloxacin [Levaquin] 500 mg PO DAILY #7 tablet 08/02/14 Azithromycin 500 mg PO DAILY #7 tablet 07/15/18 Benzonatate [Tessalon Perles 100 mg Capsule] 100 mg PO ASDIR PRN #40 capsule 07/15/18 Allergies/Adverse Reactions: propoxyphene napsylate [From Darvocet-N 100] Allergy (Unknown, Verified 09/08/18 14:36) oxycodone HCl [From Percocet] Allergy (Verified 09/08/18 14:36) Review of Systems Constitutional: ABSENT: chills, fever(s), headache(s), weight gain, weight loss Eyes: ABSENT: visual disturbances Ears: ABSENT: hearing changes Cardiovascular: ABSENT: chest pain, dyspnea on exertion, edema, orthropnea, palpitations Respiratory: ABSENT: cough, hemoptysis Gastrointestinal: PRESENT: as per HPI, abdominal pain, bloating, constipation, nausea, vomiting. ABSENT: diarrhea, hematemesis, hematochezia Genitourinary: ABSENT: dysuria, hematuria Musculoskeletal: ABSENT: joint swelling Integumentary: ABSENT: rash, wounds Neurological: ABSENT: abnormal gait, abnormal speech, confusion, dizziness, focal weakness, syncope Psychiatric: ABSENT: anxiety, depression, homidical ideation, suicidal ideation Endocrine: ABSENT: cold intolerance, heat intolerance, polydipsia, polyuria Hematologic/Lymphatic: ABSENT: easy bleeding, easy bruising Physical Exam Vital Signs: Temp Pulse Resp BP Pulse Ox 98.2 F 92 16 141/57 H 95 09/09/18 02:17 09/09/18 02:17 09/09/18 02:17 09/09/18 03:09 09/09/18 02:17 Intake & Output 09/07/18 09/08/18 09/09/18 11:59 11:59 11:59 Intake Total 1000 Balance 1000 Weight 62 kg General appearance: PRESENT: cooperative, mild distress, well-developed, well- nourished Head exam: PRESENT: atraumatic, normocephalic Eye exam: PRESENT: conjunctiva pink, EOMI, PERRLA. ABSENT: scleral icterus Ear exam: PRESENT: normal external ear exam Mouth exam: PRESENT: moist, tongue midline Neck exam: ABSENT: carotid bruit, JVD, lymphadenopathy, thyromegaly Respiratory exam: PRESENT: clear to auscultation maikel. ABSENT: rales, rhonchi, wheezes Cardiovascular exam: PRESENT: RRR. ABSENT: diastolic murmur, rubs, systolic murmur Pulses: PRESENT: normal dorsalis pedis pul Vascular exam: PRESENT: normal capillary refill GI/Abdominal exam: PRESENT: distended, hypoactive bowel sounds, normal bowel sounds, soft, tenderness. ABSENT: guarding, mass, organolmegaly, rebound Rectal exam: PRESENT: deferred Extremities exam: PRESENT: full ROM. ABSENT: calf tenderness, clubbing, pedal edema Neurological exam: PRESENT: alert, awake, oriented to person, oriented to place, oriented to time, oriented to situation, CN II-XII grossly intact. ABSENT: motor sensory deficit Psychiatric exam: PRESENT: appropriate affect, normal mood. ABSENT: homicidal ideation, suicidal ideation Skin exam: PRESENT: dry, intact, warm. ABSENT: cyanosis, rash Results Laboratory Results: 09/08/18 16:04 09/08/18 16:04 09/08/18 09/08/18 09/08/18 16:04 16:04 18:09 WBC 15.7 H RBC 4.41 Hgb 12.4 Hct 37.2 MCV 85 MCH 28.1 MCHC 33.2 RDW 13.8 Plt Count 375 Seg Neutrophils % 82.5 H Lymphocytes % 9.9 L Monocytes % 6.5 Eosinophils % 0.1 Basophils % 1.0 Absolute Neutrophils 12.9 H Absolute Lymphocytes 1.5 Absolute Monocytes 1.0 Absolute Eosinophils 0.0 Absolute Basophils 0.2 Sodium 139.3 Potassium 3.8 Chloride 102 Carbon Dioxide 24 Anion Gap 13 BUN 28 H Creatinine 1.41 H Est GFR ( Amer) 43 L Est GFR (Non-Af Amer) 36 L Glucose 143 H Lactic Acid Calcium 10.4 H Phosphorus Magnesium Total Bilirubin 0.8 AST 34 ALT 20 Alkaline Phosphatase 55 Total Protein 8.6 H Albumin 4.8 Lipase 39.4 Urine Color YELLOW Urine Appearance CLEAR Urine pH 7.0 Ur Specific [place] 1.012 Urine Protein 100 H Urine Glucose (UA) NEGATIVE Urine Ketones NEGATIVE Urine Blood NEGATIVE Urine Nitrite NEGATIVE Ur Leukocyte Esterase TRACE H Urine WBC (Auto) 2 Urine RBC (Auto) 0 09/08/18 09/08/18 20:54 23:54 WBC RBC Hgb Hct MCV MCH MCHC RDW Plt Count Seg Neutrophils % Lymphocytes % Monocytes % Eosinophils % Basophils % Absolute Neutrophils Absolute Lymphocytes Absolute Monocytes Absolute Eosinophils Absolute Basophils Sodium Potassium Chloride Carbon Dioxide Anion Gap BUN Creatinine Est GFR ( Amer) Est GFR (Non-Af Amer) Glucose Lactic Acid 0.8 Calcium Phosphorus 4.0 Magnesium 2.1 Total Bilirubin AST ALT Alkaline Phosphatase Total Protein Albumin Lipase Urine Color Urine Appearance Urine pH Ur Specific [place] Urine Protein Urine Glucose (UA) Urine Ketones Urine Blood Urine Nitrite Ur Leukocyte Esterase Urine WBC (Auto) Urine RBC (Auto) 09/08/18 09/08/18 09/08/18 16:04 16:04 23:54 Creatine Kinase 147 H 132 CK-MB (CK-2) 0.90 Troponin I 0.015 09/08/18 23:54 Creatine Kinase CK-MB (CK-2) 1.40 Troponin I 0.076 Impressions: Abdomen/Pelvis CT 09/08/18 23:19 IMPRESSION: Enteric tube in the stomach. Little change in the appearance of several mildly prominent fluid-filled loops of small bowel particularly in the right lower quadrant. Small bowel feces sign suggests chronic stasis. Partial or incomplete obstruction is not excluded. Trace of free fluid in the pelvis. Sigmoid diverticulosis. Evidence of prior granulomatous disease. TECHNICAL DOCUMENTATION: Quality ID # [id number]: Final reports with documentation of one or more dose reduction techniques (e.g., Automated exposure control, adjustment of the mA and/or kV according to patient size, use of iterative reconstruction technique) copyright 2011 [employer]- All Rights Reserved KUB X-Ray 09/08/18 23:19 IMPRESSION: Tip of the enteric tube likely in the body of the stomach on the second submitted image, as above copyright 2011 [employer]- All Rights Reserved Assessment and Plan - Diagnosis (1) Partial small bowel obstruction Is this a current diagnosis for this admission?: Yes Plan: NG tube placement, symptomatic management, follow-up chemistry and surgical consult. (2) Diabetes Is this a current diagnosis for this admission?: Yes Plan: Humalog sliding scale while n.p.o. (3) Abdominal pain Qualifiers: Abdominal location: generalized Qualified Code(s): R10.84 - Generalized abdominal pain Is this a current diagnosis for this admission?: Yes Plan: Secondary to #1, NG tube decompression and symptom medic management (4) Intractable nausea and vomiting Qualifiers: Vomiting type: unspecified Qualified Code(s): R11.2 - Nausea with vomiting, unspecified Is this a current diagnosis for this admission?: Yes Plan: Secondary to #1, symptomatic management, Zofran or Ativan as needed - Time Time Spent with patient: 35 or more minutes - Inpatient Certification Medical Necessity: Need Close Monitoring Due to Risk of Patient Decompensation
[2018-09-09 06:07] LABS: ABSOLUTE BASOPHILS # (AUTO) 0.1 10^3/uL (0.0-0.2); ABSOLUTE LYMPHOCYTES (AUTO) 1.4 10^3/uL (0.5-4.7); ABSOLUTE MONOCYTES (AUTO) 1.3 10^3/uL (0.1-1.4); BASOPHILS % (AUTO) 0.3 % (0-2); HEMATOCRIT 36.7 % (36.0-47.0); HEMOGLOBIN 12.3 g/dL (12.0-15.5); LYMPHOCYTES % (AUTO) 8.2 % (13-45); MEAN CORPUSCULAR HEMOGLOBIN 27.7 pg (27.0-33.4); MEAN CORPUSCULAR HGB CONC 33.4 g/dL (32.0-36.0); MEAN CORPUSCULAR VOLUME 83 fl (80-97); MONOCYTES % (AUTO) 7.8 % (3-13); PLATELET COUNT 346 10^3/uL (150-450); RED BLOOD COUNT 4.42 10^6/uL (3.72-5.28); RED CELL DISTRIBUTION WIDTH 13.4 % (11.5-14.0); SEGMENTED NEUTROPHILS % (AUTO) 83.7 % (42-78); TOTAL CELLS COUNTED % (AUTO) 100 %; WHITE BLOOD COUNT 16.7 10^3/uL (4.0-10.5)
[2018-09-09 06:23] LABS: ANION GAP 11 (5-19); BLOOD UREA NITROGEN 21 mg/dL (7-20); CALCIUM 10.4 mg/dL (8.4-10.2); CARBON DIOXIDE 24 mmol/L (22-30); CHLORIDE 104 mmol/L (98-107); CREATINE KINASE 140 U/L (30-135); GLUCOSE 151 mg/dL (75-110); POTASSIUM 3.6 mmol/L (3.6-5.0); SODIUM 139.2 mmol/L (137-145)
[2018-09-09] MEDS ORDERED: DEXTROSE 40% GEL 15 GM TUBE PO PRN (06:30)
[2018-09-09] MEDS ORDERED: DEXTROSE 50%-WATER SYRINGE 12.5 GM/25 ML DOSE IV PRN (06:30)
[2018-09-09] MEDS ORDERED: DEXTROSE 40% GEL 15 GM TUBE X 2 PO PRN (06:30)
[2018-09-09] MEDS ORDERED: DEXTROSE 50%-WATER SYRINGE 25 GM/50 ML DOSE IV PRN (06:30)
[2018-09-09] MEDS ORDERED: GLUCAGON,HUMAN RECOMB 1 MG INJ IM PRN (06:30)
[2018-09-09 06:34] LABS: CREATINE KINASE MB 1.79 ng/mL (<4.55); TROPONIN I 0.109 ng/mL
[2018-09-09] MEDS: HEPARIN SOD (PORCINE) 5,000 UNIT/ML 1 ML SYRINGE SUBCUT SCH ×3 (06:56→22:31)
[2018-09-09] MEDS: INSULIN LISPRO 100 UNIT/ML 3 ML VIAL SUBCUT SCH ×3 (06:57→17:14)
[2018-09-09] MEDS ORDERED: LORAZEPAM INJ 2 MG/1 ML VIAL IV PRN (09:01)
[2018-09-09] MEDS ORDERED: DIAZEPAM 2 MG TABLET PO PRN (09:53)
[2018-09-09] MEDS: KETOROLAC TROMETHAMINE INJ/PF 30 MG/1 ML SDV IV PRN (11:11)
--- NOTE | 2018-09-09 12:11 | PDOC PROGRESS REPORT ---
Subjective Progress Note for:: 09/09/18 Subjective:: no c/o of pain c/o nausea ng tube in place Reason For Visit: ILEUS ARF NAUSEA, VOMITING Physical Exam Vital Signs: Temp Pulse Resp BP Pulse Ox 97.6 F 90 14 157/71 H 92 09/09/18 08:04 09/09/18 10:12 09/09/18 10:12 09/09/18 08:04 09/09/18 10:12 Intake & Output 09/08/18 09/09/18 09/10/18 06:59 06:59 06:59 Intake Total 1000 Output Total 300 Balance 700 Weight 62 kg General appearance: PRESENT: mild distress Head exam: PRESENT: normocephalic Eye exam: PRESENT: EOMI Mouth exam: PRESENT: moist Respiratory exam: PRESENT: clear to auscultation maikel Cardiovascular exam: PRESENT: RRR Pulses: PRESENT: +2 pedal pulses bilateral GI/Abdominal exam: PRESENT: other - distended, tympanitic, non tender to palpatin Extremities exam: PRESENT: full ROM Musculoskeletal exam: PRESENT: full ROM Neurological exam: PRESENT: alert, awake, oriented to person, oriented to place, oriented to time, oriented to situation Psychiatric exam: PRESENT: appropriate affect Skin exam: PRESENT: dry Results Laboratory Results: 09/09/18 05:53 09/09/18 05:53 09/08/18 09/08/18 09/08/18 16:04 16:04 18:09 WBC 15.7 H RBC 4.41 Hgb 12.4 Hct 37.2 MCV 85 MCH 28.1 MCHC 33.2 RDW 13.8 Plt Count 375 Seg Neutrophils % 82.5 H Lymphocytes % 9.9 L Monocytes % 6.5 Eosinophils % 0.1 Basophils % 1.0 Absolute Neutrophils 12.9 H Absolute Lymphocytes 1.5 Absolute Monocytes 1.0 Absolute Eosinophils 0.0 Absolute Basophils 0.2 Sodium 139.3 Potassium 3.8 Chloride 102 Carbon Dioxide 24 Anion Gap 13 BUN 28 H Creatinine 1.41 H Est GFR ( Amer) 43 L Est GFR (Non-Af Amer) 36 L Glucose 143 H Lactic Acid Calcium 10.4 H Phosphorus Magnesium Total Bilirubin 0.8 AST 34 ALT 20 Alkaline Phosphatase 55 Total Protein 8.6 H Albumin 4.8 Lipase 39.4 Urine Color YELLOW Urine Appearance CLEAR Urine pH 7.0 Ur Specific [place] 1.012 Urine Protein 100 H Urine Glucose (UA) NEGATIVE Urine Ketones NEGATIVE Urine Blood NEGATIVE Urine Nitrite NEGATIVE Ur Leukocyte Esterase TRACE H Urine WBC (Auto) 2 Urine RBC (Auto) 0 09/08/18 09/08/18 09/09/18 20:54 23:54 05:53 WBC RBC Hgb Hct MCV MCH MCHC RDW Plt Count Seg Neutrophils % Lymphocytes % Monocytes % Eosinophils % Basophils % Absolute Neutrophils Absolute Lymphocytes Absolute Monocytes Absolute Eosinophils Absolute Basophils Sodium 139.2 Potassium 3.6 Chloride 104 Carbon Dioxide 24 Anion Gap 11 BUN 21 H Creatinine 1.34 H Est GFR ( Amer) 46 L Est GFR (Non-Af Amer) 38 L Glucose 151 H Lactic Acid 0.8 Calcium 10.4 H Phosphorus 4.0 Magnesium 2.1 Total Bilirubin AST ALT Alkaline Phosphatase Total Protein Albumin Lipase Urine Color Urine Appearance Urine pH Ur Specific Vil[place] Urine Protein Urine Glucose (UA) Urine Ketones Urine Blood Urine Nitrite Ur Leukocyte Esterase Urine WBC (Auto) Urine RBC (Auto) 09/09/18 09/09/18 05:53 05:53 WBC 16.7 H RBC 4.42 Hgb 12.3 Hct 36.7 MCV 83 MCH 27.7 MCHC 33.4 RDW 13.4 Plt Count 346 Seg Neutrophils % 83.7 H Lymphocytes % 8.2 L Monocytes % 7.8 Eosinophils % 0.0 Basophils % 0.3 Absolute Neutrophils 14.0 H Absolute Lymphocytes 1.4 Absolute Monocytes 1.3 Absolute Eosinophils 0.0 Absolute Basophils 0.1 Sodium Potassium Chloride Carbon Dioxide Anion Gap BUN Creatinine Est GFR ( Amer) Est GFR (Non-Af Amer) Glucose Lactic Acid 0.9 Calcium Phosphorus Magnesium Total Bilirubin AST ALT Alkaline Phosphatase Total Protein Albumin Lipase Urine Color Urine Appearance Urine pH Ur Specific [place] Urine Protein Urine Glucose (UA) Urine Ketones Urine Blood Urine Nitrite Ur Leukocyte Esterase Urine WBC (Auto) Urine RBC (Auto) 09/08/18 09/08/18 09/08/18 16:04 16:04 23:54 Creatine Kinase 147 H 132 CK-MB (CK-2) 0.90 Troponin I 0.015 09/08/18 09/09/18 09/09/18 23:54 05:53 05:53 Creatine Kinase 140 H CK-MB (CK-2) 1.40 1.79 Troponin I 0.076 0.109 Impressions: Abdomen/Pelvis CT 09/08/18 23:19 IMPRESSION: Enteric tube in the stomach. Little change in the appearance of several mildly prominent fluid-filled loops of small bowel particularly in the right lower quadrant. Small bowel feces sign suggests chronic stasis. Partial or incomplete obstruction is not excluded. Trace of free fluid in the pelvis. Sigmoid diverticulosis. Evidence of prior granulomatous disease. TECHNICAL DOCUMENTATION: Quality ID # 436: Final reports with documentation of one or more dose reduction techniques (e.g., Automated exposure control, adjustment of the mA and/or kV according to patient size, use of iterative reconstruction technique) copyright 2011 [employer]- All Rights Reserved KUB X-Ray 09/08/18 23:19 IMPRESSION: Tip of the enteric tube likely in the body of the stomach on the second submitted image, as above copyright 2010 [employer]- All Rights Reserved Assessment & Plan - Plan Summary Plan Summary: admitted with nausea, vomiting ct ileus vs sbo this am feels better with ng in place review of the ct suggest sbovs constipation pt currently is non tender iwth ng op we discussed different etiologies of her abd pain and ct findings large amts of stool in distal colon and dilated colon and small bowel above will attempt enemas today and cont ng suction if no improvement in a couple of days would consider diagnositc laparoscopy
[2018-09-09 16:28] LABS: CREATINE KINASE MB 2.3 ng/mL (<4.55)
[2018-09-09 16:33] LABS: TROPONIN I 0.286 ng/mL
[2018-09-10] MEDS: INSULIN LISPRO 100 UNIT/ML 3 ML VIAL SUBCUT SCH ×5 (00:04→23:30)
[2018-09-10] MEDS ORDERED: LORAZEPAM INJ 2 MG/1 ML VIAL IV ONE (00:15)
[2018-09-10 04:00] LABS: ABSOLUTE BASOPHILS # (AUTO) 0.1 10^3/uL (0.0-0.2); ABSOLUTE LYMPHOCYTES (AUTO) 1.4 10^3/uL (0.5-4.7); ABSOLUTE MONOCYTES (AUTO) 1.9 10^3/uL (0.1-1.4); ABSOLUTE NEUT (AUTO) 13.1 10^3/uL (1.7-8.2); BASOPHILS % (AUTO) 0.3 % (0-2); EOSINOPHILS % (AUTO) 0.2 % (0-6); HEMATOCRIT 34.9 % (36.0-47.0); HEMOGLOBIN 11.6 g/dL (12.0-15.5); LYMPHOCYTES % (AUTO) 8.5 % (13-45); MEAN CORPUSCULAR HEMOGLOBIN 27.9 pg (27.0-33.4); MEAN CORPUSCULAR HGB CONC 33.3 g/dL (32.0-36.0); MEAN CORPUSCULAR VOLUME 84 fl (80-97); MONOCYTES % (AUTO) 11.3 % (3-13); PLATELET COUNT 317 10^3/uL (150-450); RED BLOOD COUNT 4.17 10^6/uL (3.72-5.28); RED CELL DISTRIBUTION WIDTH 13.7 % (11.5-14.0); SEGMENTED NEUTROPHILS % (AUTO) 79.7 % (42-78); TOTAL CELLS COUNTED % (AUTO) 100 %; WHITE BLOOD COUNT 16.5 10^3/uL (4.0-10.5)
[2018-09-10 04:18] LABS: ALANINE AMINOTRANSFERASE 27 U/L (9-52); ALBUMIN 3.3 g/dL (3.5-5.0); ALKALINE PHOSPHATASE 43 U/L (38-126); ASPARTATE AMINO TRANSFERASE 25 U/L (14-36); BILIRUBIN,DIRECT 0.4 mg/dL (0.0-0.4); BILIRUBIN,TOTAL 0.6 mg/dL (0.2-1.3)
[2018-09-10 04:32] LABS: APPEARANCE,URINE CLOUDY; BILIRUBIN,URINE NEGATIVE (NEGATIVE); COLOR,URINE YELLOW; GLUCOSE, URINE NEGATIVE (NEGATIVE); KETONES,URINE TRACE mg/dL (NEGATIVE); LEUKOCYTE ESTERASE,URINE LARGE (NEGATIVE); NITRITE,URINE NEGATIVE (NEGATIVE); PROTEIN,URINE 100 mg/dL (NEGATIVE); URINE SPECIFIC GRAVITY 1.015; UROBILINOGEN,URINE NEGATIVE mg/dL (<2.0)
[2018-09-10] MEDS: HEPARIN SOD (PORCINE) 5,000 UNIT/ML 1 ML SYRINGE SUBCUT SCH (06:15)
--- NOTE | 2018-09-10 07:48 | EKG REPORT ---
SEVERITY:- ABNORMAL ECG - SINUS RHYTHM LEFT BUNDLE BRANCH BLOCK : Confirmed by: Keith Elam MD 10-Sep-2018 07:48:07
--- NOTE | 2018-09-10 09:13 | PDOC PROGRESS REPORT ---
Subjective Progress Note for:: 09/10/18 Subjective:: patient appears uncomfortable, reports some flatus this AM, feels nauseated despite the NGT; she reports to have been "constipated" x 2 weeks Reason For Visit: ILEUS ARF NAUSEA, VOMITING Physical Exam Vital Signs: Temp Pulse Resp BP Pulse Ox 98.6 F 95 18 183/71 H 94 09/10/18 08:08 09/10/18 08:08 09/10/18 08:08 09/10/18 08:08 09/10/18 08:08 Intake & Output 09/09/18 09/10/18 09/11/18 06:59 06:59 06:59 Intake Total 1000 1000 Output Total 300 650 Balance 700 350 Weight 62 kg 65.7 kg General appearance: PRESENT: mild distress Mouth exam: PRESENT: dry mucosa Respiratory exam: PRESENT: clear to auscultation maikel Cardiovascular exam: PRESENT: RRR GI/Abdominal exam: PRESENT: distended, soft, other - no peritoneal signs; no bowel sounds appreciated Results Laboratory Results: 09/10/18 03:48 09/09/18 05:53 09/10/18 09/10/18 09/10/18 03:48 03:48 04:05 WBC 16.5 H RBC 4.17 Hgb 11.6 L Hct 34.9 L MCV 84 MCH 27.9 MCHC 33.3 RDW 13.7 Plt Count 317 Seg Neutrophils % 79.7 H Lymphocytes % 8.5 L Monocytes % 11.3 Eosinophils % 0.2 Basophils % 0.3 Absolute Neutrophils 13.1 H Absolute Lymphocytes 1.4 Absolute Monocytes 1.9 H Absolute Eosinophils 0.0 Absolute Basophils 0.1 Total Bilirubin 0.6 AST 25 ALT 27 Alkaline Phosphatase 43 Total Protein 6.0 L Albumin 3.3 L Urine Color YELLOW Urine Appearance CLOUDY Urine pH 9.0 Ur Specific [place] 1.015 Urine Protein 100 H Urine Glucose (UA) NEGATIVE Urine Ketones TRACE H Urine Blood NEGATIVE Urine Nitrite NEGATIVE Ur Leukocyte Esterase LARGE H Urine WBC (Auto) 117 Urine RBC (Auto) 3 09/08/18 09/08/18 09/08/18 16:04 16:04 23:54 Creatine Kinase 147 H 132 CK-MB (CK-2) 0.90 Troponin I 0.015 09/08/18 09/09/18 09/09/18 23:54 05:53 05:53 Creatine Kinase 140 H CK-MB (CK-2) 1.40 1.79 Troponin I 0.076 0.109 09/09/18 09/09/18 09/09/18 12:34 12:34 15:35 Creatine Kinase Cancelled 150 H CK-MB (CK-2) Cancelled Troponin I Cancelled 09/09/18 09/09/18 09/10/18 15:35 21:15 03:48 Creatine Kinase CK-MB (CK-2) 2.30 Troponin I 0.286 0.305 0.279 Impressions: Abdomen/Pelvis CT 09/08/18 23:19 IMPRESSION: Enteric tube in the stomach. Little change in the appearance of several mildly prominent fluid-filled loops of small bowel particularly in the right lower quadrant. Small bowel feces sign suggests chronic stasis. Partial or incomplete obstruction is not excluded. Trace of free fluid in the pelvis. Sigmoid diverticulosis. Evidence of prior granulomatous disease. TECHNICAL DOCUMENTATION: Quality ID # 436: Final reports with documentation of one or more dose reduction techniques (e.g., Automated exposure control, adjustment of the mA and/or kV according to patient size, use of iterative reconstruction technique) copyright 2010 [employer]- All Rights Reserved KUB X-Ray 09/08/18 23:19 IMPRESSION: Tip of the enteric tube likely in the body of the stomach on the second submitted image, as above copyright 2010 [employer]- All Rights Reserved Assessment & Plan - Diagnosis (2) Bowel obstruction Qualifiers: Intestinal obstruction extent: complete Is this a current diagnosis for this admission?: Yes - Plan Summary Plan Summary: A/ Small bowel obstruction with no stools x 2 weeks, most likely complete Patient unconfortable questionable flatus this AM Abdomen distended, no peritoneal signs Leukocytosis troponin getting elevated (0.3 last night, 0.27 this AM) P/ Stat Abdominal obstructive series to f/u progress of bowel obstruciton BMP stat I discussed patient with Dr. Hickman (Hospitalist Service) in regard to concerning elevation of troponin should the patient have surgery today/tomorrow: active cardiac ischemia vs. stressed myocardium because of the bowel obstruction; [employer] Supervisor Dr. Vidales to be called by Hospitalist Zimmerman catheter UA with urine cx IVF NS 100 mL/hr
[2018-09-10] MEDS ORDERED: SUCCINYLCHOLINE CHLORIDE INJ 200 MG/10 ML VIAL ONE (09:51)
[2018-09-10] MEDS ORDERED: PHENYLEPHRINE HCL INJ/PF 10 MG/1 ML SDV ONE (09:51)
[2018-09-10] MEDS ORDERED: NEOSTIGMINE METHYLSULFATE 10 MG/10 ML VIAL ONE (09:51)
[2018-09-10] MEDS ORDERED: GLYCOPYRROLATE 1 MG/5 ML SYRINGE ONE (09:51)
[2018-09-10] MEDS ORDERED: VECURONIUM BROMIDE INJ 10 MG VIAL IV ONE (09:51)
[2018-09-10] MEDS ORDERED: HYDRALAZINE HCL INJ/PF 20 MG/1 ML SDV IV PRN (10:02)
[2018-09-10 10:30] LABS: APPEARANCE,URINE CLOUDY; BILIRUBIN,URINE NEGATIVE (NEGATIVE); COLOR,URINE YELLOW; GLUCOSE, URINE NEGATIVE (NEGATIVE); KETONES,URINE TRACE mg/dL (NEGATIVE); LEUKOCYTE ESTERASE,URINE LARGE (NEGATIVE); NITRITE,URINE POSITIVE (NEGATIVE); PROTEIN,URINE 100 mg/dL (NEGATIVE); URINE SPECIFIC GRAVITY 1.014; UROBILINOGEN,URINE NEGATIVE mg/dL (<2.0)
[2018-09-10 10:32] LABS: ANION GAP 9 (5-19); BLOOD UREA NITROGEN 19 mg/dL (7-20); CALCIUM 9.7 mg/dL (8.4-10.2); CARBON DIOXIDE 18 mmol/L (22-30); CHLORIDE 118 mmol/L (98-107); GLUCOSE 128 mg/dL (75-110); POTASSIUM 3.4 mmol/L (3.6-5.0); SODIUM 145.3 mmol/L (137-145)
[2018-09-10] MEDS ORDERED: POTASSI CL 20 MEQ/50 ML RIDER 20 MEQ/50 ML RTUPB IV ONE (11:45)
--- NOTE | 2018-09-10 11:45 | EKG REPORT ---
SEVERITY:- ABNORMAL ECG - SINUS RHYTHM LEFT BUNDLE BRANCH BLOCK : Confirmed by: Keith Elam MD 10-Sep-2018 11:44:37
--- NOTE | 2018-09-10 12:09 | RADIOLOGY REPORT (SQ) ---
EXAM DESCRIPTION: ACUTE ABDOMEN SERIES COMPLETED DATE/TIME: 09/10/2018 11:47 am REASON FOR STUDY: r/o small bowel obstruction, F/U COMPARISON: 09/09/2018 NUMBER OF VIEWS: Three views. TECHNIQUE: Frontal chest, supine abdomen and upright/decubitus abdomen radiographic images acquired. LIMITATIONS: None. FINDINGS: CHEST: Trace left basilar effusion. FREE AIR: None. No abnormal gas collections. BOWEL GAS PATTERN: Multiple loops of dilated small bowel throughout the upper abdomen measuring up to 3.9 cm. Paucity of gas throughout the colon. CALCIFICATIONS: No suspicious calcifications. HARDWARE: Nasoenteric tube tip overlies gastric body. Partially visualized right femoral hardware. SOFT TISSUES: No gross mass or suggestion of organomegaly. BONES: Right hip arthroplasty, partially visualized. The left hip degenerative change. Thoracolumba r spondylosis. No acute findings. OTHER: No other significant finding. IMPRESSION: Findings compatible with small bowel obstruction with multiple persistent loops of dilat ed small throughout the abdomen measuring up to 3.9 cm. TECHNICAL DOCUMENTATION: JOB ID: [id number] [employer]- All Rights Reserved Reading location - IP/workstation name: [email or web address]
--- NOTE | 2018-09-10 12:42 | Progress Note ---
Provider Note Provider Note: General Surgery Events noted. Patient has a complete bowel obstruction with leukocytosis and she should be operated on sooner rather than later. Her Troponin is persistently elevated and it might be caused by an ischemic cardiac condition not well identified at this time. This condition could cause a severe cardiac event intraoperatively or postoperatively. However, our facility does not have the capability to treat such a condition emergently. Therefore her transfer to a facility capable to treat such a condition during or after surgery is recommended. I agree with the assessment of the Macaroni Maker, Dr. Vidales and this patient should be transferred soon.
[2018-09-10] MEDS: METOPROLOL TARTRATE PF/INJ 5 MG/5 ML SDV IV SCH ×2 (12:54→18:16)
[2018-09-10] MEDS: ONDANSETRON HCL INJ/PF 4 MG/2 ML SDV IV PRN (12:55)
[2018-09-10] MEDS ORDERED: POTASSI CL 20 MEQ/50 ML RIDER 20 MEQ/50 ML RTUPB IV SCH (13:00)
[2018-09-10] MEDS: ENALAPRILAT DIHYDRATE INJ/PF 1.25 MG/1 ML SDV IV SCH ×2 (13:35→18:17)
--- NOTE | 2018-09-10 16:41 | RADIOLOGY REPORT (SQ) ---
EXAM DESCRIPTION: NM MYOCARDIAL INFARCT AVID COMPLETED DATE/TIME: 09/10/2018 4:16 pm REASON FOR STUDY: NSTEMI COMPARISON: CT abdomen pelvis 09/09/2018 RADIONUCLIDE AND DOSE: 24.3 mCi of technetium 99 M pyrophosphate TECHNIQUE: 24.3 mCi of technetium 99 M pyrophosphate was injected for infarct avid cardiac imaging. Anterior, posterior, MISTI, and BUTLER orientation imaging was obtained. LIMITATIONS: None. FINDINGS: There is no myocardial uptake worrisome for infarct. Mild increased uptake at the bilateral sternoclavicular joints and shoulders likely from arthritis. IMPRESSION: Negative study TECHNICAL DOCUMENTATION: JOB ID: [id number] [employer]- All Rights Reserved Reading location - IP/workstation name: [email or web address]
--- NOTE | 2018-09-10 16:44 | XCELERA REPORT ---
[address] [address] Transthoracic Echocardiogram Report Name: SANDRA SPRINGER Age: 83 yrs Gender: Female : 1935 Patient Status: Inpatient Patient Location: [facility]^A Study Date: 09/10/2018 10:02 AM Height: 62 in Weight: 144 lb BSA: 1.7 m2 Procedure: A two-dimensional transthoracic echocardiogram with color flow and Doppler was performed. Study Quality: Fair. Reason For Study: NSTEMI ? Preop History: NSTEMI / Preop. Ordering Physician: SOFIA SARKAR Performed By: Simi Corbett Interpretation Summary The left ventricle is normal in size. There is mild concentric left ventricular hypertrophy. LV EF is > than 65% Left ventricular systolic function is normal. Doppler measurements suggest impaired left ventricular relaxation, which is associated with grade I/IV or mild diastolic dysfunction The left ventricular wall motion is normal. There is no thrombus. Cannot assess ASD , VSD ,or PFO. The right ventricle is normal in size and function. The right atrium is normal. The left atrial size is normal. There is no evidence of mitral valve prolapse. There is no mitral valve stenosis. Mild perhaps moderate eccentric Posterior MR jet. There is no aortic valvular vegetation. There is no aortic valve stenosis There is no LVOT obstruction. No aortic regurgitation is present. There is no tricuspid stenosis. There is a moderate amount of tricuspid regurgitation There is servere pulmonary hypertension by echo RVSP is 65 to 70 mm of Hg , with RA mean of 5 to 10. There is no pulmonic valvular stenosis. There is no pulmonic valvular regurgitation. The aortic root is normal size. The inferior vena cava appeared normal and decreased > 50% with respiration (RAP 5-10 mmHg) There is no pericardial effusion. MMode/2D Measurements & Calculations RVDd: 2.3 cm LVIDd: 3.9 cm FS: 34.4 % Ao root diam: 2.5 cm IVSd: 1.2 cm LVIDs: 2.5 cm EDV(Teich): 64.8 ml Ao root area: 5.0 cm2 LVPWd: 1.4 cm ESV(Teich): 23.2 ml EF(Teich): 64.2 % Doppler Measurements & Calculations MV E max clarisa: MV dec slope: Ao V2 max: LV V1 max P.1 cm/sec 885.7 cm/sec2 120.6 cm/sec 3.5 mmHg MV A max clarisa: MV dec time: 0.11 sec Ao max PG: LV V1 max: 121.6 cm/sec 5.8 mmHg 94.0 cm/sec MV E/A: 0.79 LV dP/dt: 1010 mmHg/s PA V2 max: TR max clarisa: 91.0 cm/sec 387.3 cm/sec PA max P.3 mmHg TR max P.0 mmHg Left Ventricle The left ventricle is normal in size. There is mild concentric left ventricular hypertrophy. LV EF is > than 65%. Left ventricular systolic function is normal. Doppler measurements suggest impaired left ventricular relaxation, which is associated with grade I/IV or mild diastolic dysfunction. The left ventricular wall motion is normal. There is no thrombus. Cannot assess ASD , VSD ,or PFO. Right Ventricle The right ventricle is normal in size and function. Atria The right atrium is normal. The left atrial size is normal. Mitral Valve There is no evidence of mitral valve prolapse. There is no mitral valve stenosis. Mild perhaps moderate eccentric Posterior MR jet. Aortic Valve There is no aortic valvular vegetation. There is no aortic valve stenosis. There is no LVOT obstruction. No aortic regurgitation is present. Tricuspid Valve There is no tricuspid stenosis. There is a moderate amount of tricuspid regurgitation. There is servere pulmonary hypertension by echo. RVSP is 65 to 70 mm of Hg , with RA mean of 5 to 10. Pulmonic Valve There is no pulmonic valvular stenosis. There is no pulmonic valvular regurgitation. Great Vessels The aortic root is normal size. The inferior vena cava appeared normal and decreased > 50% with respiration (RAP 5-10 mmHg). Effusions There is no pericardial effusion. : SOFIA SARKAR > Aide Sommer
--- NOTE | 2018-09-10 17:27 | Progress Note ---
Provider Note Provider Note: Events noted. Dipiridamole nuclear medicine study is negative for acute cardiac injuty Plan: Exploratory laparotomy, lysis of adhesions, possible bowel resection, central line placement. Procedure, risks, benefits, complications have been explained to the patient and family (including bowel injury, infection, stroke, pneumonia, and ), they understand and their questions were answered and she has decided to proceed with surgery.
[2018-09-10] MEDS ORDERED: BUPIVACAINE HCL 0.5%-EPI 1:200000 INJ/PF 30 ML VIAL ONE (17:31)
--- NOTE | 2018-09-10 17:42 | PDOC CONSULTATION ---
Consultation-Blank Consultation: CARDIOLOGY PRELIMINARY NOTE. Formal consultative follow-up. Patient seen, interviewed and examined. IMPRESSION: 1. Elevated troponin I most likely secondary to supply demand mismatch in a patient with dehydration, acute on chronic kidney disease. No definite evidence of non-ST elevation SC. Although the patient has a chronic left bundle branch block pattern, the patient has no anginal symptoms, and the patient's technetium pyrophosphate is negative for an acute SC, meaning that the patient did not have myocardial infarction within the last 72 hours. Hence this is consistent with supply demand mismatch type II myocardial infarction, and not a non-ST elevation SC. This is also supported by the fact that there are no wall motion abnormalities, and normal LV ejection fraction on echocardiogram. There is no aortic stenosis or aortic regurgitation. There is severe pulmonary hypertension. 2. Acute bowel obstruction for surgical treatment of the same. The surgeon opines that the patient needs to go to the OR as soon as possible. 3. Severe pulmonary hypertension:? Etiology. Patient denies history of asthma or COPD. 4. Coronary artery disease:: History of ostial RCA stent in 2007. The patient on 09/2017 had a negative IV Lexiscan Cardiolite stress test. 5. Peripheral vascular disease: Patient with carotid stenosis, and left subclavian stenosis with possible symptoms of subclavian steal. 6. Hypertension: Well controlled 7. 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 8. Acute on chronic kidney disease. At present stage III. Avoid nephrotoxic drugs. Continue IV hydration. 9. Hypothyroidism: Continue thyroid replacement. 10. Hyperlipidemia: Would recommend restarting the patient's statin once the patient takes by mouth. 11. Preoperative cardiac risk assessment for urgency/emergency surgery. 12. Chronic left bundle branch block pattern. In view of the patient's age, presence of coronary artery disease and peripheral vascular disease, patient will be at least a moderate cardiac risk for this procedure. The patient's risk is also increased in view of the patient's severe pulmonary hypertension which may make it difficult for the patient to be weaned off the ventilator. All of the this discussed with the patient and the patient's family. Postoperatively we will place the patient in ICU, and get serial EKGs and enzymes. Discussed with the attending hospitalist physician taking care of the patient and the surgeon on the case. Will follow. Formal consult to follow.
[2018-09-10] MEDS ORDERED: MIDAZOLAM 2 MG/2 ML INJ ONE (17:52)
[2018-09-10] MEDS ORDERED: FENTANYL CITRATE INJ/PF 100 MCG/2 ML AMPUL ONE (17:52)
[2018-09-10] MEDS ORDERED: PROPOFOL INJ 200 MG/20 ML VIAL IV ONE (17:53)
[2018-09-10] MEDS ORDERED: ACETAMINOPHEN 1,000 MG/100 ML RTUPB IV ONE (17:53)
[2018-09-10] MEDS ORDERED: ONDANSETRON HCL INJ/PF 4 MG/2 ML SDV ONE (17:53)
[2018-09-10] MEDS ORDERED: DEXAMETHASONE SOD PHOSPHATE INJ 4 MG/1 ML VIAL ONE (17:53)
[2018-09-10] MEDS ORDERED: EPHEDRINE SULFATE INJ 50 MG/1 ML AMPULE ONE (17:53)
[2018-09-10] MEDS ORDERED: MORPHINE SULFATE 10 MG/ML INJ ONE (17:53)
[2018-09-10] MEDS ORDERED: CEFOXITIN INJ 1 GM VIAL ONE (18:22)
[2018-09-10] MEDS ORDERED: DIPHENHYDRAMINE HCL 50 MG/ML VIAL IV PRN (19:31)
[2018-09-10] MEDS ORDERED: FENTANYL CITRATE INJ/PF 100 MCG/2 ML AMPUL IV PRN ×3 (19:31)
[2018-09-10] MEDS ORDERED: MORPHINE SULFATE 10 MG/ML INJ IV PRN (19:31)
[2018-09-10] MEDS ORDERED: PROMETHAZINE HCL INJ 25 MG/1 ML VIAL IV PRN ×2 (19:31)
[2018-09-10] MEDS ORDERED: MEPERIDINE HCL/PF INJ 25 MG/1 ML DISP.SYRIN IV PRN (19:31)
[2018-09-10] MEDS ORDERED: ONDANSETRON HCL INJ/PF 4 MG/2 ML SDV IV PRN ×2 (19:31→20:01)
[2018-09-10] MEDS ORDERED: NITROGLYCERIN 0.4 MG/TAB 25 TAB/BOTTLE SL PRN (19:57)
--- NOTE | 2018-09-10 19:57 | Operative Report ---
Nonrecallable Operative Report DATE OF SURGERY: 09/10/18 PREOPERATIVE DIAGNOSIS: small bowel mechanical obstruction; need IV access POSTOPERATIVE DIAGNOSIS: same OPERATION: 1) Right subclavian vein triple lumen catheter. 2) Exploratory laparotomy. 3) Lysis of adhesions SURGEON: CHEL KAPLAN ANESTHESIA: GA - plus 20 mL 0.5 marcaine with epinephrine TISSUE REMOVED OR ALTERED: adhesive band COMPLICATIONS: none ESTIMATED BLOOD LOSS: < 10 mL INTRAOPERATIVE FINDINGS: single adhesive band constricting a loop of proximal ileum PROCEDURE: see dictation
[2018-09-10] MEDS ORDERED: PHARMACY COMMUNICATION ORDER MC NR (20:15)
--- NOTE | 2018-09-10 20:21 | RADIOLOGY REPORT (SQ) ---
EXAM DESCRIPTION: CHEST SINGLE VIEW COMPLETED DATE/TIME: 09/10/2018 8:08 pm REASON FOR STUDY: POST CENTRAL LINE PLACEMENT. COMPARISON: AP chest 07/15/2018 EXAM PARAMETERS: NUMBER OF VIEWS: One view. TECHNIQUE: Single frontal radiographic view of the chest acquired. RADIATION DOSE: NA LIMITATIONS: None. FINDINGS: LUNGS AND PLEURA: Persistent airspace disease at both lung bases unchanged. No pleural ef fusion or pneumothorax. MEDIASTINUM AND HILAR STRUCTURES: No masses. Contour normal. HEART AND VASCULAR STRUCTURES: Heart normal in size. Normal vasculature. BONES: No acute findings. HARDWARE: Right-sided triple-lumen catheter tip in the superior vena cava. No pneumothorax. Nasogas tric tube tip and side port in the stomach. OTHER: No other significant finding. IMPRESSION: No pneumothorax post right subclavian central line placement TECHNICAL DOCUMENTATION: JOB ID: [id number] [employer]- All Rights Reserved Reading location - IP/workstation name: [email or web address]
[2018-09-10] MEDS: NORMAL SALINE 1000 ML 1,000 ML IV PRN (21:03)
[2018-09-10] MEDS: KETOROLAC TROMETHAMINE INJ/PF 30 MG/1 ML SDV IV PRN (21:14)
--- NOTE | 2018-09-10 21:42 | PDOC PROGRESS REPORT ---
Subjective Progress Note for:: 09/09/18 Subjective:: Patient is still quite uncomfortable. Nasogastric tube with dark bilious drainage. Reason For Visit: ILEUS ARF NAUSEA, VOMITING Physical Exam Vital Signs: Temp Pulse Resp BP Pulse Ox 98.3 F 92 19 178/72 H 94 09/09/18 20:28 09/09/18 20:28 09/09/18 20:28 09/09/18 20:28 09/09/18 20:28 Intake & Output 09/08/18 09/09/18 09/10/18 06:59 06:59 06:59 Intake Total 1000 Output Total 300 350 Balance 700 -350 Weight 62 kg General appearance: PRESENT: cooperative, mild distress - Mild to moderate distress, well-developed Head exam: PRESENT: atraumatic, normocephalic Mouth exam: PRESENT: other - Nasogastric tube in place Respiratory exam: PRESENT: clear to auscultation maikel, symmetrical, unlabored. ABSENT: accessory muscle use, rales, rhonchi, wheezes Cardiovascular exam: PRESENT: RRR, +S1, +S2 GI/Abdominal exam: PRESENT: diminished bowel sounds, distended, soft, tenderness - Diffuse tenderness Rectal exam: PRESENT: deferred Neurological exam: PRESENT: awake, oriented to person, oriented to place, oriented to situation Psychiatric exam: PRESENT: appropriate affect - Affect reflects her discomfort. ABSENT: agitated, anxious Results Laboratory Results: 09/09/18 05:53 09/09/18 05:53 09/08/18 09/09/18 09/09/18 23:54 05:53 05:53 WBC 16.7 H RBC 4.42 Hgb 12.3 Hct 36.7 MCV 83 MCH 27.7 MCHC 33.4 RDW 13.4 Plt Count 346 Seg Neutrophils % 83.7 H Lymphocytes % 8.2 L Monocytes % 7.8 Eosinophils % 0.0 Basophils % 0.3 Absolute Neutrophils 14.0 H Absolute Lymphocytes 1.4 Absolute Monocytes 1.3 Absolute Eosinophils 0.0 Absolute Basophils 0.1 Sodium 139.2 Potassium 3.6 Chloride 104 Carbon Dioxide 24 Anion Gap 11 BUN 21 H Creatinine 1.34 H Est GFR ( Amer) 46 L Est GFR (Non-Af Amer) 38 L Glucose 151 H Lactic Acid Calcium 10.4 H Phosphorus 4.0 Magnesium 2.1 04/02/19 05:53 WBC RBC Hgb Hct MCV MCH MCHC RDW Plt Count Seg Neutrophils % Lymphocytes % Monocytes % Eosinophils % Basophils % Absolute Neutrophils Absolute Lymphocytes Absolute Monocytes Absolute Eosinophils Absolute Basophils Sodium Potassium Chloride Carbon Dioxide Anion Gap BUN Creatinine Est GFR ( Amer) Est GFR (Non-Af Amer) Glucose Lactic Acid 0.9 Calcium Phosphorus Magnesium 09/08/18 09/08/18 09/08/18 16:04 16:04 23:54 Creatine Kinase 147 H 132 CK-MB (CK-2) 0.90 Troponin I 0.015 09/08/18 09/09/18 09/09/18 23:54 05:53 05:53 Creatine Kinase 140 H CK-MB (CK-2) 1.40 1.79 Troponin I 0.076 0.109 09/09/18 09/09/18 09/09/18 12:34 12:34 15:35 Creatine Kinase Cancelled 150 H CK-MB (CK-2) Cancelled Troponin I Cancelled 09/09/18 09/09/18 15:35 21:15 Creatine Kinase CK-MB (CK-2) 2.30 Troponin I 0.286 0.305 Impressions: Abdomen/Pelvis CT 09/08/18 23:19 IMPRESSION: Enteric tube in the stomach. Little change in the appearance of several mildly prominent fluid-filled loops of small bowel particularly in the right lower quadrant. Small bowel feces sign suggests chronic stasis. Partial or incomplete obstruction is not excluded. Trace of free fluid in the pelvis. Sigmoid diverticulosis. Evidence of prior granulomatous disease. TECHNICAL DOCUMENTATION: Quality ID # 436: Final reports with documentation of one or more dose reduction techniques (e.g., Automated exposure control, adjustment of the mA and/or kV according to patient size, use of iterative reconstruction technique) copyright 2010 [employer]- All Rights Reserved KUB X-Ray 09/08/18 23:19 IMPRESSION: Tip of the enteric tube likely in the body of the stomach on the second submitted image, as above copyright 2010 [employer]- All Rights Reserved Assessment and Plan - Diagnosis (1) Bowel obstruction Qualifiers: Intestinal obstruction type: unspecified ileus Qualified Code(s): K56.7 - Ileus, unspecified Is this a current diagnosis for this admission?: Yes Plan: The patient has had a nasogastric tube in place for several days. She still has abdominal pain. She has not passed any stool. She is still n.p.o. Enemas have been ordered to try and initiate bowel movements. (2) Abdominal pain Qualifiers: Abdominal location: generalized Qualified Code(s): R10.84 - Generalized abdominal pain Is this a current diagnosis for this admission?: Yes Plan: Still with pain and distention. Analgesia is available. We are trying to avoid too much narcotic analgesia as this will be counterproductive when trying to re solve the ileus. (3) Elevated troponin I level Is this a current diagnosis for this admission?: Yes Plan: Patient has a history of coronary disease with a stent placed several years ago. I will follow her troponins. She has left bundle branch block so it is difficult to say if this is an acute infarct versus physiologic strain from her illness. (4) Diabetes Qualifiers: Diabetes mellitus type: type 2 Is this a current diagnosis for this admission?: Yes Plan: Currently on Accu-Cheks every 6 hours with sliding scale coverage. (5) CAD (coronary artery disease) Qualifiers: Coronary Disease-Associated Artery/Lesion type: [place] artery Associated angina: without angina Is this a current diagnosis for this admission?: Yes Plan: Her troponins are elevated. I will order an additional troponin for later today and then tomorrow morning. This could be a significant factor if the patient requires surgery. (6) Hypertension Qualifiers: Hypertension type: essential hypertension Qualified Code(s): I10 - Essential (primary) hypertension Is this a current diagnosis for this admission?: Yes Plan: The patient is n.p.o. Her blood pressure has been increasing. This could be due to pain. I may need to utilize intravenous medications for control. - Time Time Spent with patient: 15-24 minutes Medications reviewed and adjusted accordingly: Yes
--- NOTE | 2018-09-10 21:49 | PDOC PROGRESS REPORT ---
Subjective Progress Note for:: 09/10/18 Subjective:: The patient is no better. Dr. Reynoso feels that she will need surgery. Reason For Visit: ILEUS ARF NAUSEA, VOMITING Physical Exam Vital Signs: Temp Pulse Resp BP Pulse Ox 98.6 F 95 18 183/71 H 94 09/10/18 08:08 09/10/18 08:08 09/10/18 08:08 09/10/18 08:08 09/10/18 08:08 Intake & Output 09/09/18 09/10/18 09/11/18 06:59 06:59 06:59 Intake Total 1000 1000 Output Total 300 650 Balance 700 350 Weight 62 kg 65.7 kg General appearance: PRESENT: mild distress - Mild to moderate distress, well- developed Head exam: PRESENT: normocephalic Ear exam: PRESENT: normal external ear exam Mouth exam: PRESENT: dry mucosa Respiratory exam: PRESENT: clear to auscultation maikel - Anteriorly, symmetrical, unlabored. ABSENT: rales, rhonchi, wheezes Cardiovascular exam: PRESENT: RRR, +S1, +S2 GI/Abdominal exam: PRESENT: distended, hypoactive bowel sounds, soft, tenderness Rectal exam: PRESENT: deferred Neurological exam: PRESENT: alert, awake, oriented to person, oriented to place, oriented to situation Psychiatric exam: PRESENT: appropriate affect - Affect reflects her pain. ABSENT: agitated, anxious Results Laboratory Results: 09/10/18 03:48 09/10/18 03:48 09/10/18 09/10/18 09/10/18 03:48 03:48 03:48 WBC 16.5 H RBC 4.17 Hgb 11.6 L Hct 34.9 L MCV 84 MCH 27.9 MCHC 33.3 RDW 13.7 Plt Count 317 Seg Neutrophils % 79.7 H Lymphocytes % 8.5 L Monocytes % 11.3 Eosinophils % 0.2 Basophils % 0.3 Absolute Neutrophils 13.1 H Absolute Lymphocytes 1.4 Absolute Monocytes 1.9 H Absolute Eosinophils 0.0 Absolute Basophils 0.1 Sodium 145.3 H Potassium 3.4 L Chloride 118 H Carbon Dioxide 18 L Anion Gap 9 BUN 19 Creatinine 1.25 Est GFR ( Amer) 50 L Est GFR (Non-Af Amer) 41 L Glucose 128 H Calcium 9.7 Total Bilirubin 0.6 AST 25 ALT 27 Alkaline Phosphatase 43 Total Protein 6.0 L Albumin 3.3 L Urine Color Urine Appearance Urine pH Ur Specific [place] Urine Protein Urine Glucose (UA) Urine Ketones Urine Blood Urine Nitrite Ur Leukocyte Esterase Urine WBC (Auto) Urine RBC (Auto) 09/10/18 09/10/18 04:05 10:00 WBC RBC Hgb Hct MCV MCH MCHC RDW Plt Count Seg Neutrophils % Lymphocytes % Monocytes % Eosinophils % Basophils % Absolute Neutrophils Absolute Lymphocytes Absolute Monocytes Absolute Eosinophils Absolute Basophils Sodium Potassium Chloride Carbon Dioxide Anion Gap BUN Creatinine Est GFR ( Amer) Est GFR (Non-Af Amer) Glucose Calcium Total Bilirubin AST ALT Alkaline Phosphatase Total Protein Albumin Urine Color YELLOW YELLOW Urine Appearance CLOUDY CLOUDY Urine pH 9.0 9.0 Ur Specific [place] 1.015 1.014 Urine Protein 100 H 100 H Urine Glucose (UA) NEGATIVE NEGATIVE Urine Ketones TRACE H TRACE H Urine Blood NEGATIVE NEGATIVE Urine Nitrite NEGATIVE POSITIVE H Ur Leukocyte Esterase LARGE H LARGE H Urine WBC (Auto) 117 >182 Urine RBC (Auto) 3 7 09/08/18 09/08/18 09/08/18 16:04 16:04 23:54 Creatine Kinase 147 H 132 CK-MB (CK-2) 0.90 Troponin I 0.015 09/08/18 09/09/18 09/09/18 23:54 05:53 05:53 Creatine Kinase 140 H CK-MB (CK-2) 1.40 1.79 Troponin I 0.076 0.109 09/09/18 09/09/18 09/09/18 12:34 12:34 15:35 Creatine Kinase Cancelled 150 H CK-MB (CK-2) Cancelled Troponin I Cancelled 09/09/18 09/09/18 09/10/18 15:35 21:15 03:48 Creatine Kinase CK-MB (CK-2) 2.30 Troponin I 0.286 0.305 0.279 Impressions: Abdomen/Pelvis CT 09/08/18 23:19 IMPRESSION: Enteric tube in the stomach. Little change in the appearance of several mildly prominent fluid-filled loops of small bowel particularly in the right lower quadrant. Small bowel feces sign suggests chronic stasis. Partial or incomplete obstruction is not excluded. Trace of free fluid in the pelvis. Sigmoid diverticulosis. Evidence of prior granulomatous disease. TECHNICAL DOCUMENTATION: Quality ID # 436: Final reports with documentation of one or more dose reduction techniques (e.g., Automated exposure control, adjustment of the mA and/or kV according to patient size, use of iterative reconstruction technique) copyright [address] [employer] [address]- All Rights Reserved KUB X-Ray 09/08/18 23:19 IMPRESSION: Tip of the enteric tube likely in the body of the stomach on the second submitted image, as above copyright [address]- All Rights Reserved Assessment and Plan - Diagnosis (1) Bowel obstruction Qualifiers: Intestinal obstruction type: other intestinal obstruction Is this a current diagnosis for this admission?: Yes Plan: The patient had an acute abdominal series and the patient requires surgery. Because of elevated troponins I initiated plans for transfer. At the same time cardiology was evaluating the patient as well. (2) Elevated troponin I level Is this a current diagnosis for this admission?: Yes Plan: Dr. Sommer saw the patient in consultation. 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 In an effort to avoid transfer Dr. Sommer will order a nuclear scan and if this is negative for infarct the patient will have surgery at this institution. If not plans are in the making for transfer to [facility]. (3) Abdominal pain Qualifiers: Abdominal location: generalized Qualified Code(s): R10.84 - Generalized abdominal pain Is this a current diagnosis for this admission?: Yes Plan: Surgery will likely be required as noted above. (4) CAD (coronary artery disease) Qualifiers: Coronary Disease-Associated Artery/Lesion type: [place] artery Associated angina: without angina Is this a current diagnosis for this admission?: Yes Plan: I did initiate enalapril and metoprolol therapy through the patient's IV in order to control pressure and reduce strain on the heart. (5) Hypertension Qualifiers: Hypertension type: essential hypertension Qualified Code(s): I10 - Essential (primary) hypertension Is this a current diagnosis for this admission?: Yes Plan: As above (6) Diabetes Qualifiers: Diabetes mellitus type: type 2 Is this a current diagnosis for this admission?: Yes Plan: Continue Accu-Cheks and sliding scale coverage. - Time Time Spent with patient: 35 or more minutes Medications reviewed and adjusted accordingly: Yes - Plan Summary Plan Summary: Over the course of the day the patient did have the nuclear scan and this re vealed no acute infarction. The patient is going to the operating room. I engaged in multiple phone calls with [facility] as well as Katarina [facility]. Once it was noted that the patient was reasonable risk for surgery I notified [facility] as well as [facility]ar[facility] that there will be no need for transfer.
[2018-09-10] MEDS ORDERED: CEFOXITIN 1 GM/D5W RTU 1 GM/50 ML RTUPB IV SCH (22:00)
[2018-09-10] MEDS ORDERED: ATORVASTATIN CALCIUM 20 MG TABLET PO SCH (22:00)
[2018-09-10] MEDS ORDERED: DEXTROSE 40% GEL 15 GM TUBE X 2 NG PRN (22:30)
[2018-09-10] MEDS ORDERED: ATORVASTATIN CALCIUM 20 MG TABLET NG ONE (22:30)
[2018-09-10] MEDS ORDERED: MAG HYDROX/AL HYDROX/SIMETH SUSP 30 ML UDCUP NG PRN (22:30)
[2018-09-10] MEDS ORDERED: DEXTROSE 40% GEL 15 GM TUBE NG PRN (22:30)
[2018-09-10] MEDS: ACETAMINOPHEN 1,000 MG/100 ML RTUPB IV SCH (22:45)
[2018-09-10] MEDS: CARVEDILOL 6.25 MG TABLET NG SCH (22:46)
[2018-09-10] MEDS: FAMOTIDINE INJ/PF 20 MG/2 ML SDV IV SCH (22:46)
[2018-09-10] MEDS: CEFOXITIN SODIUM 2 GM in DEXTROSE 5%-WATER 100 ML IV SCH (22:54)
[2018-09-11] MEDS: METOPROLOL TARTRATE PF/INJ 5 MG/5 ML SDV IV SCH ×4 (00:22→17:22)
[2018-09-11] MEDS: ENALAPRILAT DIHYDRATE INJ/PF 1.25 MG/1 ML SDV IV SCH ×4 (00:22→17:23)
--- NOTE | 2018-09-11 00:35 | OPERATIVE REPORT E ---
Operative Report NAME: SANDRA SPRINGER : 1935 AGE: 83Y DATE OF SURGERY: 09/10/2018 ROOM: 423 PREOPERATIVE DIAGNOSIS: COMPLETE SMALL BOWEL MECHANICAL OBSTRUCTION. POSTOPERATIVE DIAGNOSIS: COMPLETE SMALL BOWEL MECHANICAL OBSTRUCTION SECONDARY TO ADHESIONS. OPERATION: 1. Placement of right subclavian vein intravenous line. 2. Exploratory laparotomy. 3. Lysis of adhesions. SURGEON: CHEL KAPLAN M.D. FERRY CAPTAIN: None. BLEEDING: Minimal less than 10 mL. COMPLICATION: None. ANESTHESIA: General plus 3 mL of 1% lidocaine with epinephrine. FLUIDS: 1100 mL of crystalloids. URINE OUTPUT: 400 mL. DRAINS: None. INDICATIONS AND FINDINGS: This is an 83-year-old female admitted on 09/08, with abdominal pain, distention, obstipation. A CT scan was done revealing a complete mechanical small bowel obstruction. The patient was kept on observation and today 09/10, the patient presented with no flatus and constipation, abdominal distention. X-ray of the abdomen was done revealing a distended abdomen with gaseous colon and the decision was made to take the patient to surgery. Prior to surgery the patient was evaluated by the petroleum engineer, Dr. Sommer, who performed a dipyridamole nuclear medicine scan which revealed no acute cardiac injury. The test was done, because preoperatively the patient presented with a slightly elevated troponin but no signs such as chest pain, shortness of breath, tachycardia, hypotension were present. A decision was, therefore, made to take the patient to surgery to undergo a laparotomy, central line placement, and possible lysis of adhesions. Procedures, benefits, and complications explained to the patient and family. She understood all the above. Her questions were answered. She decided to proceed. DESCRIPTION OF PROCEDURE: The procedure was done in the operating room. The patient was placed in a supine position. General anesthesia was induced by endotracheal intubation. The right side of the chest and neck prepped and draped in the usual fashion. The area just below the mid clavicle on the right side was infiltrated with lidocaine. A 16-gauge needle was then used to cannulate the right subclavian vein with good blood return through the needle. A guidewire was inserted into the subclavian vein to the superior vena cava. The needle was removed, insertion point of the guidewire was dilated with an 11 blade tissue dilator, which was removed. Over the guidewire, a triple-lumen catheter was inserted to 16 cm. The guidewire was removed. The triple-lumen catheter was flushed with normal saline. The catheter was secured to the skin with Silk sutures, sterile dressings. The abdomen was then prepped and draped in the usual fashion. A midline incision was made just below the umbilicus to the symphysis pubis. The peritoneal cavity was entered. A large amount of peritoneal fluid was aspirated; this was found to be yellow clear, sent for Gram-stain and aerobic and anaerobic culture. The small bowel was found to be distended, eviscerated. This was then followed until 1 single adhesive band was identified in between 2 loops of small bowel with a loop of small bowel caught in between being constricted. The band was then divided, sent to pathology for examination. The insertion point of the adhesive band was then cauterized and ligated with 0 Silk suture and inverted with [id number] [place] suture into the small bowel wall. This adhesive band was identified at the terminal jejunum. The small bowel was run from ligament of Treitz down to the ileocecal valve and then in a distal proximal fashion. No additional pathology was identified. The small bowel was then gently finger decompressed. The nasogastric tube position was examined and nasogastric tube was advanced an additional [address] within the body of the stomach and a good return of air and gastric content was obtained in the nasogastric tube suction bucket. After this, the small bowel was re-placed within the peritoneal cavity; this was irrigated with 2 liters of warm normal saline which was fully aspirated. The abdominal wall was closed with running #1 looped PDS suture. Subcutaneous tissue was then irrigated with normal saline. The skin was closed with hector. Sterile dressing applied. The patient tolerated the procedure well, extubated, and transferred to the recovery room in satisfactory condition. DICTATING PHYSICIAN: CHEL KAPLAN M.D. [id number] PHY#: [id number] ID: [id number] JOB#: [id number] ACCT: [id number] cc:CHEL KAPLAN M.D. > [facility]
[2018-09-11] MEDS: ACETAMINOPHEN 1,000 MG/100 ML RTUPB IV SCH ×4 (02:08→21:19)
[2018-09-11] MEDS: INSULIN LISPRO 100 UNIT/ML 3 ML VIAL SUBCUT SCH ×3 (05:11→17:41)
[2018-09-11 05:18] LABS: HEMATOCRIT 30.6 % (36.0-47.0); HEMOGLOBIN 10.2 g/dL (12.0-15.5); MEAN CORPUSCULAR HEMOGLOBIN 28.4 pg (27.0-33.4); MEAN CORPUSCULAR HGB CONC 33.4 g/dL (32.0-36.0); MEAN CORPUSCULAR VOLUME 85 fl (80-97); PLATELET COUNT 273 10^3/uL (150-450); RED CELL DISTRIBUTION WIDTH 13.5 % (11.5-14.0); WHITE BLOOD COUNT 11.8 10^3/uL (4.0-10.5)
[2018-09-11 05:44] LABS: BLOOD UREA NITROGEN 22 mg/dL (7-20); CALCIUM 8.2 mg/dL (8.4-10.2); CARBON DIOXIDE 21 mmol/L (22-30); CHLORIDE 115 mmol/L (98-107); GLUCOSE 114 mg/dL (75-110); POTASSIUM 3.8 mmol/L (3.6-5.0); SODIUM 139.3 mmol/L (137-145)
[2018-09-11 05:53] LABS: ANION GAP 3 (5-19)
[2018-09-11] MEDS: NORMAL SALINE 1000 ML 1,000 ML IV PRN ×2 (06:36→17:22)
[2018-09-11] MEDS: CEFOXITIN SODIUM 2 GM in DEXTROSE 5%-WATER 100 ML IV SCH ×2 (10:04→21:45)
[2018-09-11] MEDS: CLOPIDOGREL BISULFATE 75 MG TABLET NG SCH (10:04)
[2018-09-11] MEDS: FAMOTIDINE INJ/PF 20 MG/2 ML SDV IV SCH (10:05)
[2018-09-11] MEDS: CARVEDILOL 6.25 MG TABLET NG SCH ×2 (10:05→21:44)
[2018-09-11] MEDS: LISINOPRIL 10 MG TABLET NG SCH (10:05)
--- NOTE | 2018-09-11 10:13 | PDOC PROGRESS REPORT ---
Subjective Progress Note for:: 09/11/18 Subjective:: patient comfortable, c/o burping, no flatus Reason For Visit: ILEUS ARF NAUSEA, VOMITING Physical Exam Vital Signs: Temp Pulse Resp BP Pulse Ox 97.6 F 76 22 H 115/45 L 99 09/11/18 07:53 09/11/18 07:53 09/11/18 07:53 09/11/18 07:53 09/11/18 07:53 Intake & Output 09/10/18 09/11/18 09/12/18 06:59 06:59 06:59 Intake Total 1000 4400 Output Total 650 3010 Balance 350 1390 Weight 65.7 kg 71 kg General appearance: PRESENT: no acute distress Respiratory exam: PRESENT: clear to auscultation maikel Cardiovascular exam: PRESENT: RRR GI/Abdominal exam: PRESENT: distended - slightly, soft, other - incision covered by dressing S/D/I with minimal blood stain Results Laboratory Results: 09/11/18 04:26 09/11/18 04:26 09/10/18 09/10/18 09/11/18 03:48 10:00 04:26 WBC 11.8 H RBC 3.60 L Hgb 10.2 L Hct 30.6 L MCV 85 MCH 28.4 MCHC 33.4 RDW 13.5 Plt Count 273 Sodium 145.3 H Potassium 3.4 L Chloride 118 H Carbon Dioxide 18 L Anion Gap 9 BUN 19 Creatinine 1.25 Est GFR ( Amer) 50 L Est GFR (Non-Af Amer) 41 L Glucose 128 H Calcium 9.7 Urine Color YELLOW Urine Appearance CLOUDY Urine pH 9.0 Ur Specific [place] 1.014 Urine Protein 100 H Urine Glucose (UA) NEGATIVE Urine Ketones TRACE H Urine Blood NEGATIVE Urine Nitrite POSITIVE H Ur Leukocyte Esterase LARGE H Urine WBC (Auto) >182 Urine RBC (Auto) 7 09/11/18 04:26 WBC RBC Hgb Hct MCV MCH MCHC RDW Plt Count Sodium 139.3 Potassium 3.8 Chloride 115 H Carbon Dioxide 21 L Anion Gap 3 L BUN 22 H Creatinine 1.14 Est GFR ( Amer) 55 L Est GFR (Non-Af Amer) 46 L Glucose 114 H Calcium 8.2 L Urine Color Urine Appearance Urine pH Ur Specific [place] Urine Protein Urine Glucose (UA) Urine Ketones Urine Blood Urine Nitrite Ur Leukocyte Esterase Urine WBC (Auto) Urine RBC (Auto) 09/08/18 09/08/18 09/08/18 16:04 16:04 23:54 Creatine Kinase 147 H 132 CK-MB (CK-2) 0.90 Troponin I 0.015 09/08/18 09/09/18 09/09/18 23:54 05:53 05:53 Creatine Kinase 140 H CK-MB (CK-2) 1.40 1.79 Troponin I 0.076 0.109 09/09/18 09/09/18 09/09/18 12:34 12:34 15:35 Creatine Kinase Cancelled 150 H CK-MB (CK-2) Cancelled Troponin I Cancelled 09/09/18 09/09/18 09/10/18 15:35 21:15 03:48 Creatine Kinase CK-MB (CK-2) 2.30 Troponin I 0.286 0.305 0.279 09/11/18 04:26 Creatine Kinase CK-MB (CK-2) Troponin I 0.169 Impressions: Abdomen/Pelvis CT 09/08/18 23:19 IMPRESSION: Enteric tube in the stomach. Little change in the appearance of several mildly prominent fluid-filled loops of small bowel particularly in the right lower quadrant. Small bowel feces sign suggests chronic stasis. Partial or incomplete obstruction is not excluded. Trace of free fluid in the pelvis. Sigmoid diverticulosis. Evidence of prior granulomatous disease. TECHNICAL DOCUMENTATION: Quality ID # 436: Final reports with documentation of one or more dose reduction techniques (e.g., Automated exposure control, adjustment of the mA and/or kV according to patient size, use of iterative reconstruction technique) copyright 2010 [employer]- All Rights Reserved KUB X-Ray 09/08/18 23:19 IMPRESSION: Tip of the enteric tube likely in the body of the stomach on the second submitted image, as above copyright 2010 [employer]- All Rights Reserved Acute Abdomen Series 09/10/18 00:00 IMPRESSION: Findings compatible with small bowel obstruction with multiple persistent loops of dilated small throughout the abdomen measuring up to 3.9 cm. Cardiac Imaging Nuclear Medicine 09/10/18 00:00 IMPRESSION: Negative study Chest X-Ray 09/10/18 19:59 IMPRESSION: No pneumothorax post right subclavian central line placement Assessment & Plan - Diagnosis (1) Bowel obstruction Qualifiers: Intestinal obstruction type: other intestinal obstruction Is this a current diagnosis for this admission?: Yes (2) Bowel obstruction Qualifiers: Intestinal obstruction extent: complete Is this a current diagnosis for this admission?: Yes - Plan Summary Plan Summary: A/ POD #1 after Expl. laparotomy CHAYITO with single Phillip Band division VSS, AF Good UO Decreased NGT output (110 mL since surgery) No flatus or stools yet WBC almost normal (11.8) BMP WNL P/ Continue NPO, IVF, Zimmerman Clamp NGT x 4 hours PT for ambulation OOB up in chair BID IS hourly Diet to be advanced once bowel function returns
--- NOTE | 2018-09-11 18:13 | PDOC PROGRESS REPORT ---
Subjective Progress Note for:: 09/11/18 Subjective:: No adverse events overnight. She said her belly feels okay as long as she does not move around too much. Currently no nausea. No fevers. Reason For Visit: ILEUS ARF NAUSEA, VOMITING Physical Exam Vital Signs: Temp Pulse Resp BP Pulse Ox 98.9 F 80 22 H 132/38 H 100 09/11/18 15:25 09/11/18 15:25 09/11/18 15:25 09/11/18 15:25 09/11/18 15:25 Intake & Output 09/10/18 09/11/18 09/12/18 06:59 06:59 06:59 Intake Total 1000 4400 1300 Output Total 650 3010 100 Balance 350 1390 1200 Weight 65.7 kg 71 kg General appearance: PRESENT: no acute distress, cooperative, disheveled Respiratory exam: PRESENT: clear to auscultation maikel, rhonchi, symmetrical, unlabored. ABSENT: accessory muscle use, crackles, prolonged expiratory phas, tachypnea, wheezes Cardiovascular exam: PRESENT: RRR, +S1, +S2 Pulses: PRESENT: normal carotid pulses Vascular exam: PRESENT: normal capillary refill GI/Abdominal exam: PRESENT: hypoactive bowel sounds - NG tube was on suction, soft, tenderness - Appropriate, other - NG tube was in place. ABSENT: distended, guarding, rebound Extremities exam: ABSENT: clubbing, pedal edema Musculoskeletal exam: PRESENT: normal inspection. ABSENT: deformity Neurological exam: PRESENT: awake, oriented to person, oriented to place, oriented to situation Psychiatric exam: PRESENT: flat affect Skin exam: PRESENT: dry, warm Results Laboratory Results: 09/11/18 04:26 09/11/18 04:26 09/11/18 09/11/18 04:26 04:26 WBC 11.8 H RBC 3.60 L Hgb 10.2 L Hct 30.6 L MCV 85 MCH 28.4 MCHC 33.4 RDW 13.5 Plt Count 273 Sodium 139.3 Potassium 3.8 Chloride 115 H Carbon Dioxide 21 L Anion Gap 3 L BUN 22 H Creatinine 1.14 Est GFR ( Amer) 55 L Est GFR (Non-Af Amer) 46 L Glucose 114 H Calcium 8.2 L 09/08/18 09/08/18 09/08/18 16:04 16:04 23:54 Creatine Kinase 147 H 132 CK-MB (CK-2) 0.90 Troponin I 0.015 09/08/18 09/09/18 09/09/18 23:54 05:53 05:53 Creatine Kinase 140 H CK-MB (CK-2) 1.40 1.79 Troponin I 0.076 0.109 09/09/18 09/09/18 09/09/18 12:34 12:34 15:35 Creatine Kinase Cancelled 150 H CK-MB (CK-2) Cancelled Troponin I Cancelled 09/09/18 09/09/18 09/10/18 15:35 21:15 03:48 Creatine Kinase CK-MB (CK-2) 2.30 Troponin I 0.286 0.305 0.279 09/11/18 04:26 Creatine Kinase CK-MB (CK-2) Troponin I 0.169 Impressions: Abdomen/Pelvis CT 09/08/18 23:19 IMPRESSION: Enteric tube in the stomach. Little change in the appearance of several mildly prominent fluid-filled loops of small bowel particularly in the right lower quadrant. Small bowel feces sign suggests chronic stasis. Partial or incomplete obstruction is not excluded. Trace of free fluid in the pelvis. Sigmoid diverticulosis. Evidence of prior granulomatous disease. TECHNICAL DOCUMENTATION: Quality ID # 436: Final reports with documentation of one or more dose reduction techniques (e.g., Automated exposure control, adjustment of the mA and/or kV according to patient size, use of iterative reconstruction technique) copyright 2010 [employer]- All Rights Reserved KUB X-Ray 09/08/18 23:19 IMPRESSION: Tip of the enteric tube likely in the body of the stomach on the second submitted image, as above copyright 2010 [employer]- All Rights Reserved Acute Abdomen Series 09/10/18 00:00 IMPRESSION: Findings compatible with small bowel obstruction with multiple persistent loops of dilated small throughout the abdomen measuring up to 3.9 cm. Cardiac Imaging Nuclear Medicine 09/10/18 00:00 IMPRESSION: Negative study Chest X-Ray 09/10/18 19:59 IMPRESSION: No pneumothorax post right subclavian central line placement Assessment and Plan - Diagnosis (1) Bowel obstruction Qualifiers: Intestinal obstruction type: other intestinal obstruction Is this a current diagnosis for this admission?: Yes Plan: Management per surgery. Postop day #1. (2) Hypertension Qualifiers: Hypertension type: essential hypertension Qualified Code(s): I10 - Essential (primary) hypertension Is this a current diagnosis for this admission?: Yes Plan: Currently on some IV medication, but her blood pressures are low normal, so we will hold her medication if her systolic is below 100. - Time Time Spent with patient: 15-24 minutes
[2018-09-11] MEDS: KETOROLAC TROMETHAMINE INJ/PF 30 MG/1 ML SDV IV PRN (20:00)
[2018-09-11] MEDS: ATORVASTATIN CALCIUM 20 MG TABLET NG SCH (21:44)
--- NOTE | 2018-09-11 23:55 | Progress Note ---
Provider Note Provider Note: CARDIOLOGY PROGRESS NOTE
[2018-09-12] MEDS: METOPROLOL TARTRATE PF/INJ 5 MG/5 ML SDV IV SCH ×4 (00:45→17:25)
[2018-09-12] MEDS: ENALAPRILAT DIHYDRATE INJ/PF 1.25 MG/1 ML SDV IV SCH ×4 (00:46→17:24)
[2018-09-12] MEDS: INSULIN LISPRO 100 UNIT/ML 3 ML VIAL SUBCUT SCH ×5 (01:28→23:02)
[2018-09-12] MEDS: ACETAMINOPHEN 1,000 MG/100 ML RTUPB IV SCH ×4 (02:39→21:36)
[2018-09-12] MEDS: NORMAL SALINE 1000 ML 1,000 ML IV PRN (06:07)
[2018-09-12 06:32] LABS: HEMATOCRIT 27.6 % (36.0-47.0); HEMOGLOBIN 9.4 g/dL (12.0-15.5); MEAN CORPUSCULAR HEMOGLOBIN 28.7 pg (27.0-33.4); MEAN CORPUSCULAR VOLUME 84 fl (80-97); PLATELET COUNT 236 10^3/uL (150-450); RED BLOOD COUNT 3.27 10^6/uL (3.72-5.28); RED CELL DISTRIBUTION WIDTH 13.5 % (11.5-14.0); WHITE BLOOD COUNT 8.7 10^3/uL (4.0-10.5)
[2018-09-12 06:49] LABS: BLOOD UREA NITROGEN 19 mg/dL (7-20); GLUCOSE 77 mg/dL (75-110)
[2018-09-12 06:50] LABS: POTASSIUM 3.3 mmol/L (3.6-5.0)
[2018-09-12 06:55] LABS: CARBON DIOXIDE 19 mmol/L (22-30); CHLORIDE 116 mmol/L (98-107); SODIUM 139.2 mmol/L (137-145)
[2018-09-12 07:31] LABS: ANION GAP 4 (5-19)
[2018-09-12 08:58] LABS: CREATINE KINASE MB 2.04 ng/mL (<4.55); TROPONIN I 0.094 ng/mL
--- NOTE | 2018-09-12 10:00 | PDOC PROGRESS REPORT ---
Subjective Progress Note for:: 09/12/18 Subjective:: patient is short of breath as this morning and was c/o chest heaviness; patient denies N/V, denies flatus or stools Reason For Visit: ILEUS ARF NAUSEA, VOMITING Physical Exam Vital Signs: Temp Pulse Resp BP Pulse Ox 97.5 F 77 24 H 132/70 H 97 09/12/18 07:42 09/12/18 07:42 09/12/18 07:42 09/12/18 07:42 09/12/18 07:42 Intake & Output 09/11/18 09/12/18 09/13/18 06:59 06:59 06:59 Intake Total 4400 2600 Output Total 3010 790 Balance 1390 1810 Weight 71 kg 73 kg General appearance: PRESENT: mild distress Respiratory exam: PRESENT: clear to auscultation maikel, tachypnea Cardiovascular exam: PRESENT: RRR GI/Abdominal exam: PRESENT: distended, hypoactive bowel sounds, soft, other - incision covered by clear dressings, C/D/I Results Laboratory Results: 09/12/18 06:28 09/12/18 06:28 09/12/18 09/12/18 06:28 06:28 WBC 8.7 RBC 3.27 L Hgb 9.4 L Hct 27.6 L MCV 84 MCH 28.7 MCHC 34.0 RDW 13.5 Plt Count 236 Sodium 139.2 Potassium 3.3 L Chloride 116 H Carbon Dioxide 19 L Anion Gap 4 L BUN 19 Creatinine 1.06 Est GFR ( Amer) > 60 Est GFR (Non-Af Amer) 50 L Glucose 77 Calcium 8.0 L 09/08/18 09/08/18 09/08/18 16:04 16:04 23:54 Creatine Kinase 147 H 132 CK-MB (CK-2) 0.90 Troponin I 0.015 09/08/18 09/09/18 09/09/18 23:54 05:53 05:53 Creatine Kinase 140 H CK-MB (CK-2) 1.40 1.79 Troponin I 0.076 0.109 09/09/18 09/09/18 09/09/18 12:34 12:34 15:35 Creatine Kinase Cancelled 150 H CK-MB (CK-2) Cancelled Troponin I Cancelled 09/09/18 09/09/1809/10/19 15:35 21:15 03:48 Creatine Kinase CK-MB (CK-2) 2.30 Troponin I 0.286 0.305 0.279 09/11/18 09/12/18 09/12/18 04:26 08:05 08:05 Creatine Kinase 205 H CK-MB (CK-2) 2.04 Troponin I 0.169 0.094 Impressions: Abdomen/Pelvis CT 09/08/18 23:19 IMPRESSION: Enteric tube in the stomach. Little change in the appearance of several mildly prominent fluid-filled loops of small bowel particularly in the right lower quadrant. Small bowel feces sign suggests chronic stasis. Partial or incomplete obstruction is not excluded. Trace of free fluid in the pelvis. Sigmoid diverticulosis. Evidence of prior granulomatous disease. TECHNICAL DOCUMENTATION: Quality ID # 436: Final reports with documentation of one or more dose reduction techniques (e.g., Automated exposure control, adjustment of the mA and/or kV according to patient size, use of iterative reconstruction technique) copyright 2010 [employer]- All Rights Reserved KUB X-Ray 09/08/18 23:19 IMPRESSION: Tip of the enteric tube likely in the body of the stomach on the second submitted image, as above copyright 2010 [employer]- All Rights Reserved Acute Abdomen Series 09/10/18 00:00 IMPRESSION: Findings compatible with small bowel obstruction with multiple persistent loops of dilated small throughout the abdomen measuring up to 3.9 cm. Cardiac Imaging Nuclear Medicine 09/10/18 00:00 IMPRESSION: Negative study Chest X-Ray 09/10/18 19:59 IMPRESSION: No pneumothorax post right subclavian central line placement Assessment & Plan - Diagnosis (1) Bowel obstruction Qualifiers: Intestinal obstruction type: other intestinal obstruction Is this a current diagnosis for this admission?: Yes (2) Bowel obstruction Qualifiers: Intestinal obstruction extent: complete Is this a current diagnosis for this admission?: Yes - Plan Summary Plan Summary: A/ POD#2 after laparotomy, [facility], for SBO Patient short of breath as this morning early with chest heaviness No flatus or bowel movement NGT removed yesterday VS= tachypneic this AM (RR 24) Good UO K 3.3 EKG shows possible inferior ischemia/infarct; Troponin is 0.09, but decreased since yesterday (0.1) P/ Replace K Stat Chest Xray Stat ABG's Stat CT chest w/ angio r/o PE Until SOB cause is identified and patient is comfortable, keep patient NPO and maintain Zimmerman catheter in place Notify Dr. Vidales, Cardiology
[2018-09-12 10:14] LABS: ARTERIAL BLOOD BASE EXCESS -6.2 mmol/L; ARTERIAL BLOOD HCO3 18.4 mmol/L (20-24); ARTERIAL BLOOD O2 SATURATION 98.8 % (94-98); ARTERIAL BLOOD PCO2 33.2 mmHg (35-45); ARTERIAL BLOOD PH 7.36 (7.35-7.45); ARTERIAL BLOOD PO2 146.1 mmHg (80-100); ARTERIAL BLOOD TOTAL CO2 19.4 mmol/L (21-25)
[2018-09-12 10:15] LABS: ARTERIAL BLOOD FIO2 3L
--- NOTE | 2018-09-12 10:50 | RADIOLOGY REPORT (SQ) ---
EXAM DESCRIPTION: CHEST 2 VIEWS COMPLETED DATE/TIME: 09/12/2018 10:41 am REASON FOR STUDY: SOB, chest pain COMPARISON: 09/10/2018 EXAM PARAMETERS: NUMBER OF VIEWS: two views TECHNIQUE: Digital Frontal and Lateral radiographic views of the chest acquired. RADIATION DOSE: NA LIMITATIONS: none FINDINGS: LUNGS AND PLEURA: There is bilateral interstitial airspace disease. Small effusions. MEDIASTINUM AND HILAR STRUCTURES: No masses or contour abnormalities. HEART AND VASCULAR STRUCTURES: Heart size is stable there is central vascular congestion. BONES: No acute findings. HARDWARE: Right-sided central line remains in place. OTHER: No other significant finding. IMPRESSION: Findings are most consistent with vascular congestion with bilateral pleural effusions. TECHNICAL DOCUMENTATION: JOB ID: [id number] 1993 [employer]- All Rights Reserved Reading location - IP/workstation name: [email or web address]
--- NOTE | 2018-09-12 11:27 | RADIOLOGY REPORT (SQ) ---
EXAM DESCRIPTION: CTA CHEST COMPLETED DATE/TIME: 09/12/2018 11:08 am REASON FOR STUDY: SOB, chest pain COMPARISON: CT chest 05/05/2012, 06/12/2011 Chest films 07/15/2018, 09/10/2018 TECHNIQUE: CT scan of the chest performed using helical scanning technique with dynamic intravenous contrast injection. Images reviewed with lung, soft tissue and bone windows. Reconstructed coronal and sagittal MPR images reviewed. Additional 3 dimensional post-processing performed to develop Maximal Intensity Projection images (OR P). All images stored on PACS. All CT scanners at this facility use dose modulation, iterative reconstruction, and/or weight based d osing when appropriate to reduce radiation dose to as low as reasonably achievable (ALARA). [facility]: Dose Right [facility]: CareDose [facility]: Dose Right [facility]: Teradose 4D [facility]: [employer] CONTRAST TYPE AND DOSE: contrast/concentration: Isovue 350.00 mg/ml; Total Contrast Delivered: 65.0 ml; Total Saline Delivered: 80.0 ml Contrast bolus optimized for the pulmonary arteries and thoracic aorta. RENAL FUNCTION: Creatinine 1.1 RADIATION DOSE: CT Rad equipment meets quality standard of care and radiation dose reduction techniq ues were employed. CTDIvol: 12.0 - 15.0 mGy. DLP: 425 mGy-cm. . LIMITATIONS: None. FINDINGS: LUNGS AND PLEURA: Small pleural effusions layer in the dependent portion of the right and left chest. There is mild bibasilar atelectasis in the posterior costophrenic sulci. Lungs are otherwise hyperlucent and hyperinflated from obstructive disease. No pneumothorax. AORTA AND GREAT VESSELS: No thoracic aortic dissection or aneurysm. The proximal left subclavian art hiwot is occluded at its origin of on axial image 25. 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 HEART: No pericardial effusion. No significant coronary artery calcifications. PULMONARY ARTERIES: No emboli visualized in the main pulmonary arteries or the segmental branches. HILAR AND MEDIASTINAL STRUCTURES: Stable 9 mm short axis precarinal lymph node compared to old prior studies. HARDWARE: Right-sided triple-lumen catheter tip in the superior vena cava UPPER ABDOMEN: No significant findings. Limited exam. THYROID AND OTHER SOFT TISSUES: No masses. No adenopathy. BONES: No acute or significant finding. 3D MIPS: Confirm above findings. OTHER: No other significant finding. IMPRESSION: Small bilateral pleural effusions with bibasilar atelectasis. Underlying obstructive greer ng. Occluded left proximal subclavian artery No CTA evidence of thoracic aortic dissection or acute pulmonary emboli. COMMENT: Quality ID # 436: Final reports with documentation of one or more dose reduction techniques (e.g., Automated exposure control, adjustment of the mA and/or kV according to patient size, use of iterative reconstruction technique) TECHNICAL DOCUMENTATION: JOB ID: [id number] [employer]- All Rights Reserved Reading location - IP/workstation name: [email or web address]-
[2018-09-12] MEDS: CEFOXITIN SODIUM 2 GM in DEXTROSE 5%-WATER 100 ML IV SCH ×2 (11:32→21:37)
[2018-09-12] MEDS: ONDANSETRON HCL INJ/PF 4 MG/2 ML SDV IV PRN (12:06)
[2018-09-12] MEDS: FAMOTIDINE INJ/PF 20 MG/2 ML SDV IV SCH (12:06)
[2018-09-12] MEDS: POTASSI CL 20 MEQ/50 ML RIDER 20 MEQ/50 ML RTUPB IV SCH ×2 (12:23→14:10)
[2018-09-12] MEDS: CARVEDILOL 6.25 MG TABLET NG SCH (12:52)
[2018-09-12] MEDS: LISINOPRIL 10 MG TABLET NG SCH (12:53)
[2018-09-12] MEDS ORDERED: NITROGLYCERIN 2% OINTMENT 1 GM PACKET TP ONE (13:00)
--- NOTE | 2018-09-12 13:23 | EKG REPORT ---
SEVERITY:- ABNORMAL ECG - SINUS RHYTHM INCOMPLETE LEFT BUNDLE BRANCH BLOCK ANTERIOR INFARCT, AGE INDETERMINATE : Confirmed by: Keith Elam MD 12-Sep-2018 13:22:11
[2018-09-12] MEDS: CLOPIDOGREL BISULFATE 75 MG TABLET NG SCH (14:11)
[2018-09-12] MEDS: ALBUTEROL SULFATE HFA (90 MCG/PUFF) 200 PUFF/8.5 GM MDI IH PRN (16:45)
--- NOTE | 2018-09-12 17:15 | PDOC PROGRESS REPORT ---
Subjective Progress Note for:: 09/12/18 Subjective:: No adverse events overnight. She was having a pretty hard time of it this morning, complaining of a lot of nausea and abdominal pain. Fortunately, as the day went on, she had improvement in her nausea and she had a bowel movement, and is now on a clear liquid diet. Reason For Visit: ILEUS ARF NAUSEA, VOMITING Physical Exam Vital Signs: Temp Pulse Resp BP Pulse Ox 97.3 F 86 20 145/82 H 98 09/12/18 15:43 09/12/18 15:43 09/12/18 15:43 09/12/18 15:43 09/12/18 15:43 Intake & Output 09/11/18 09/12/18 09/13/18 06:59 06:59 06:59 Intake Total 4400 2600 1675 Output Total 3010 790 575 Balance 1390 1810 1100 Weight 71 kg 73 kg General appearance: PRESENT: Mild distress, cooperative, disheveled Respiratory exam: PRESENT: clear to auscultation maikel, rhonchi, symmetrical, unlabored. ABSENT: accessory muscle use, crackles, prolonged expiratory phas, tachypnea, wheezes Cardiovascular exam: PRESENT: RRR, +S1, +S2 Pulses: PRESENT: normal carotid pulses Vascular exam: PRESENT: normal capillary refill GI/Abdominal exam: PRESENT: hypoactive bowel sounds, distended, tenderness -appropriate ABSENT: Soft, guarding, rebound Extremities exam: ABSENT: clubbing, pedal edema Musculoskeletal exam: PRESENT: normal inspection. ABSENT: deformity Neurological exam: PRESENT: awake, oriented to person, oriented to place, oriented to situation Psychiatric exam: PRESENT: flat affect Skin exam: PRESENT: dry, warm Results Laboratory Results: 09/12/18 06:28 09/12/18 06:28 09/12/18 09/12/18 09/12/18 06:28 06:28 09:50 WBC 8.7 RBC 3.27 L Hgb 9.4 L Hct 27.6 L MCV 84 MCH 28.7 MCHC 34.0 RDW 13.5 Plt Count 236 Carbonic Acid 1.00 L HCO3/H2CO3 Ratio 18:1 ABG pH 7.36 ABG pCO2 33.2 L ABG pO2 146.1 H ABG HCO3 18.4 L ABG O2 Saturation 98.8 H ABG Base Excess -6.2 FiO2 3L Sodium 139.2 Potassium 3.3 L Chloride 116 H Carbon Dioxide 19 L Anion Gap 4 L BUN 19 Creatinine 1.06 Est GFR ( Amer) > 60 Est GFR (Non-Af Amer) 50 L Glucose 77 Calcium 8.0 L 09/08/18 09/08/18 09/08/18 16:04 16:04 23:54 Creatine Kinase 147 H 132 CK-MB (CK-2) 0.90 Troponin I 0.015 09/08/18 09/09/18 09/09/18 23:54 05:53 05:53 Creatine Kinase 140 H CK-MB (CK-2) 1.40 1.79 Troponin I 0.076 0.109 09/09/18 09/09/18 09/09/18 12:34 12:34 15:35 Creatine Kinase Cancelled 150 H CK-MB (CK-2) Cancelled Troponin I Cancelled 09/09/18 09/09/18 09/10/18 15:35 21:15 03:48 Creatine Kinase CK-MB (CK-2) 2.30 Troponin I 0.286 0.305 0.279 09/11/18 09/12/18 09/12/18 04:26 08:05 08:05 Creatine Kinase 205 H CK-MB (CK-2) 2.04 Troponin I 0.169 0.094 Impressions: Abdomen/Pelvis CT 09/08/18 23:19 IMPRESSION: Enteric tube in the stomach. Little change in the appearance of several mildly prominent fluid-filled loops of small bowel particularly in the right lower quadrant. Small bowel feces sign suggests chronic stasis. Partial or incomplete obstruction is not excluded. Trace of free fluid in the pelvis. Sigmoid diverticulosis. Evidence of prior granulomatous disease. TECHNICAL DOCUMENTATION: Quality ID # 436: Final reports with documentation of one or more dose reduction techniques (e.g., Automated exposure control, adjustment of the mA and/or kV according to patient size, use of iterative reconstruction technique) copyright 2010 [employer]- All Rights Reserved KUB X-Ray 09/08/18 23:19 IMPRESSION: Tip of the enteric tube likely in the body of the stomach on the second submitted image, as above copyright 2010 [employer]- All Rights Reserved Acute Abdomen Series 09/10/18 00:00 IMPRESSION: Findings compatible with small bowel obstruction with multiple persistent loops of dilated small throughout the abdomen measuring up to 3.9 cm. Cardiac Imaging Nuclear Medicine 09/10/18 00:00 IMPRESSION: Negative study Chest X-Ray 09/12/18 00:00 IMPRESSION: Findings are most consistent with vascular congestion with bilateral pleural effusions. Chest/Abdomen CTA 09/12/18 00:00 IMPRESSION: Small bilateral pleural effusions with bibasilar atelectasis. Underlying obstructive lung. Occluded left proximal subclavian artery No CTA evidence of thoracic aortic dissection or acute pulmonary emboli. Assessment and Plan - Diagnosis (1) Bowel obstruction Qualifiers: Intestinal obstruction type: obstruction due to adhesions Intestinal obstruction extent: complete Qualified Code(s): K56.52 - Intestinal adhesions [bands] with complete obstruction Is this a current diagnosis for this admission?: Yes Plan: Status post exploratory laparotomy with lysis of adhesions. She has had improvement of her nausea and had a bowel movement today. She currently on a clear liquid diet. Further management per surgery. (2) Hypertension Qualifiers: Hypertension type: essential hypertension Qualified Code(s): I10 - Essential (primary) hypertension Is this a current diagnosis for this admission?: Yes Plan: Currently on some IV medication, but her blood pressures are low normal, so we will hold her medication if her systolic is below 100. We will transition to p.o. medication once her blood pressure stabilized somewhat she is able to reliably tolerate p.o. (3) Pulmonary hypertension Is this a current diagnosis for this admission?: Yes Plan: Continue to monitor oxygenation and volume status - Time Time Spent with patient: 25-34 minutes
[2018-09-12 18:31] LABS: ANION GAP 8 (5-19); BLOOD UREA NITROGEN 17 mg/dL (7-20); CALCIUM 8.1 mg/dL (8.4-10.2); CARBON DIOXIDE 16 mmol/L (22-30); CHLORIDE 115 mmol/L (98-107); GLUCOSE 87 mg/dL (75-110); POTASSIUM 3.9 mmol/L (3.6-5.0); SODIUM 138.6 mmol/L (137-145)
[2018-09-12] MEDS: ATORVASTATIN CALCIUM 20 MG TABLET NG SCH (21:37)
[2018-09-12] MEDS: KETOROLAC TROMETHAMINE INJ/PF 30 MG/1 ML SDV IV PRN (21:55)
--- NOTE | 2018-09-12 23:00 | Progress Note ---
Provider Note Provider Note: CARDIOLOGY PROGRESS NOTE by Dr. Aide Sommer on 09/12/2018. SUBJECTIVE: The patient earlier today had some generalized chest tightness and shortness of breath. Pelvis CTA was negative for PE. She had relief with the the patient's albuterol inhalation. At present the patient has no chest pain or discomfort. There is no shortness of breath at present. There is no wheezing. There is no PND. Notes that the patient does have a diagnosis of COPD. PHYSICAL EXAMINATION: The patient appears to be chronically ill. She is well- groomed. At present in no acute distress. She is slightly anxious. She does not want to be transferred to the floor and wants to stay here tonight. Will comply with this request. Selected Entries 09/12/18 15:43 Temperature 97.3 F Temperature Oral Source Pulse Rate 86 Respiratory 20 Rate Blood Pressure 145/82 H Blood Pressure 103 Mean BP Location Left Arm BP Position Supine O2 Sat by Pulse 98 Oximetry Oxygen Flow 2.50 Rate Oxygen Delivery Nasal Cannula Method HEAD: Is atraumatic normocephalic. EYES: Pupils are equal round regular reactive to light accommodation. Extraocular movements are normal. There is no internal pallor. There is no scleral icterus. EARS: Tympanic membranes are intact. External auditory canals are clear. NOSE: There is no deviated nasal septum. There is no inflammation of the nasal mucous membrane. MOUTH: Mucous mornings of mouth are moist tongue is moist there is no ulcers there is no bleed ing from the gums. THROAT: There is no redness of the oropharynx. There is no exudates. SKIN: There is no skin rashes or skin lesions. There is no particular ecchymosis. NECK: Is supple there is no JVD. Bilateral carotid bruits present. There is no goiter. There is no lymphadenopathy. There is no goiter. LUNGS: There is diminished air entry prolonged expiration. There is no rhonchi rales or wheezing. HEART: S1-S2 is heard. There is no S3 gallop there is no S4 gallop systolic murmur left sternal border and the apex there is no rub is mildly distended. There is no paraspinal megaly. Bowel sounds are absent. Surgical dressing is dry. EXTREMITIES femorals are diminished there is faint femoral both bruits bilaterally. Neck pulses are diminished. There is no pedal edema. There is no DVT or cellulitis. 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 PSYCHIATRIC: The patient's judgment and insight are intact her affect is normal. Labs- All tests 24 hr 09/10/18 09/12/18 09/12/18 21:00 00:41 05:54 WBC RBC Hgb Hct MCV MCH MCHC RDW Plt Count Carbonic Acid HCO3/H2CO3 Ratio ABG pH ABG pCO2 ABG pO2 ABG HCO3 ABG Total CO2 ABG O2 Saturation ABG Base Excess FiO2 Sodium Potassium Chloride Carbon Dioxide Anion Gap BUN Creatinine Est GFR ( Amer) Est GFR (Non-Af Amer) Glucose POC Glucose 130 H 91 87 Calcium Creatine Kinase CK-MB (CK-2) Troponin I 09/12/18 09/12/18 09/12/18 06:28 06:28 08:05 WBC 8.7 RBC 3.27 L Hgb 9.4 L Hct 27.6 L MCV 84 MCH 28.7 MCHC 34.0 RDW 13.5 Plt Count 236 Carbonic Acid HCO3/H2CO3 Ratio ABG pH ABG pCO2 ABG pO2 ABG HCO3 ABG Total CO2 ABG O2 Saturation ABG Base Excess FiO2 Sodium 139.2 Potassium 3.3 L Chloride 116 H Carbon Dioxide 19 L Anion Gap 4 L BUN 19 Creatinine 1.06 Est GFR ( Amer) > 60 Est GFR (Non-Af Amer) 50 L Glucose 77 POC Glucose Calcium 8.0 L Creatine Kinase 205 H CK-MB (CK-2) Troponin I 09/12/18 09/12/18 09/12/18 08:05 09:50 11:28 WBC RBC Hgb Hct MCV MCH MCHC RDW Plt Count Carbonic Acid 1.00 L HCO3/H2CO3 Ratio 18:1 ABG pH 7.36 ABG pCO2 33.2 L ABG pO2 146.1 H ABG HCO3 18.4 L ABG Total CO2 19.4 L ABG O2 Saturation 98.8 H ABG Base Excess -6.2 FiO2 3L Sodium Potassium Chloride Carbon Dioxide Anion Gap BUN Creatinine Est GFR ( Amer) Est GFR (Non-Af Amer) Glucose POC Glucose 71 Calcium Creatine Kinase CK-MB (CK-2) 2.04 Troponin I 0.094 09/12/18 09/12/18 09/12/18 15:07 17:40 21:19 WBC RBC Hgb Hct MCV MCH MCHC RDW Plt Count Carbonic Acid HCO3/H2CO3 Ratio ABG pH ABG pCO2 ABG pO2 ABG HCO3 ABG Total CO2 ABG O2 Saturation ABG Base Excess FiO2 Sodium 138.6 Potassium 3.9 Chloride 115 H Carbon Dioxide 16 L Anion Gap 8 BUN 17 Creatinine 0.98 Est GFR ( Amer) > 60 Est GFR (Non-Af Amer) 54 L Glucose 87 POC Glucose 92 86 Calcium 8.1 L Creatine Kinase CK-MB (CK-2) Troponin I Abdomen/Pelvis CT 09/08/18 00:00 IMPRESSION: Several borderline to mildly dilated fluid-filled loops of small bowel with relative decompression of distal small bowel loops. A partial or incomplete obstruction should be considered. No free air or free fluid. Colonic diverticulosis without CT evidence for diverticulitis. Left basilar infiltrate. Evidence of prior granulomatous disease. Extensive atheromatous change. TECHNICAL DOCUMENTATION: Quality ID # 436: Final reports with documentation of one or more dose reduction techniques (e.g., Automated exposure control, adjustment of the mA and/or kV according to patient size, use of iterative reconstruction technique) copyright 2010 [employer]- All Rights Reserved Abdomen/Pelvis CT 09/08/18 23:19 IMPRESSION: Enteric tube in the stomach. Little change in the appearance of several mildly prominent fluid-filled loops of small bowel particularly in the right lower quadrant. Small bowel feces sign suggests chronic stasis. Partial or incomplete obstruction is not excluded. Trace of free fluid in the pelvis. Sigmoid diverticulosis. Evidence of prior granulomatous disease. TECHNICAL DOCUMENTATION: Quality ID # [id number]: Final reports with documentation of one or more dose reduction techniques (e.g., Automated exposure control, adjustment of the mA and/or kV according to patient size, use of iterative reconstruction technique) copyright 2010 [employer]- All Rights Reserved KUB X-Ray 09/08/18 23:19 IMPRESSION: Tip of the enteric tube likely in the body of the stomach on the second submitted image, as above copyright 2010 [employer]- All Rights Reserved Acute Abdomen Series 09/10/18 00:00 IMPRESSION: Findings compatible with small bowel obstruction with multiple persistent loops of dilated small throughout the abdomen measuring up to 3.9 cm. Cardiac Imaging Nuclear Medicine 09/10/18 00:00 IMPRESSION: Negative study Chest X-Ray 09/10/18 19:59 IMPRESSION: No pneumothorax post right subclavian central line placement Chest X-Ray 09/12/18 00:00 IMPRESSION: Findings are most consistent with vascular congestion with bilateral pleural effusions. Chest/Abdomen CTA 09/12/18 00:00 IMPRESSION: Small bilateral pleural effusions with bibasilar atelectasis. Underlying obstructive lung. Occluded left proximal subclavian artery No CTA evidence of thoracic aortic dissection or acute pulmonary emboli. IMPRESSION RECOMMENDATION: IMPRESSION: 1. Elevated troponin I most likely secondary to supply demand mismatch in a patient with dehydration, acute on chronic kidney disease. Note the troponin is trending down. Patient does did not have an anginal symptoms. Her chest tightness and shortness of breath is secondary to COPD. 2. Acute bowel obstruction: There is post surgery.. 3. Severe pulmonary hypertension:? Etiology. Patient denies history of asthma or COPD. 4. Coronary artery disease:: History of ostial RCA stent in 2007. The patient on 09/2017 had a negative IV Lexiscan Cardiolite stress test. 5. COPD: Patient had an episode of shortness of breath secondary to her COPD exacerbation. This is resolved with albuterol. Continue albuterol inhalation. 6 peripheral vascular disease: Patient with carotid stenosis, and left subclavian stenosis with possible symptoms of subclavian steal. 7. Hypertension: Well controlled 8. 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 9. Acute on chronic kidney disease. At present stage III. Avoid nephrotoxic drugs. Continue IV hydration. 10. Hypothyroidism: Continue thyroid replacement. 11. Hyperlipidemia: Would recommend restarting the patient's statin once the patient takes by mouth. 12. Chronic left bundle branch block pattern. Recommendation continue current medication. Medications reviewed. Management plan discussed with the attending physician. Discussed with the patient and patient's family. Medical decision making is of high complexity. 40 minutes spent on this patient with more than 50% of time spent on direct patient care. Will follow.
[2018-09-13] MEDS: METOPROLOL TARTRATE PF/INJ 5 MG/5 ML SDV IV SCH ×3 (00:11→20:57)
[2018-09-13] MEDS: ENALAPRILAT DIHYDRATE INJ/PF 1.25 MG/1 ML SDV IV SCH ×3 (00:11→20:57)
[2018-09-13] MEDS: ACETAMINOPHEN 1,000 MG/100 ML RTUPB IV SCH ×2 (03:32→09:24)
[2018-09-13] MEDS: KETOROLAC TROMETHAMINE INJ/PF 30 MG/1 ML SDV IV PRN ×3 (04:38→21:57)
[2018-09-13 05:32] LABS: HEMATOCRIT 30.2 % (36.0-47.0); HEMOGLOBIN 10.2 g/dL (12.0-15.5); MEAN CORPUSCULAR HEMOGLOBIN 28.6 pg (27.0-33.4); MEAN CORPUSCULAR HGB CONC 33.8 g/dL (32.0-36.0); MEAN CORPUSCULAR VOLUME 85 fl (80-97); PLATELET COUNT 283 10^3/uL (150-450); RED BLOOD COUNT 3.57 10^6/uL (3.72-5.28); RED CELL DISTRIBUTION WIDTH 13.6 % (11.5-14.0); WHITE BLOOD COUNT 12.8 10^3/uL (4.0-10.5)
[2018-09-13 05:42] LABS: ANION GAP 7 (5-19); BLOOD UREA NITROGEN 15 mg/dL (7-20); CALCIUM 8.5 mg/dL (8.4-10.2); CARBON DIOXIDE 18 mmol/L (22-30); CHLORIDE 113 mmol/L (98-107); GLUCOSE 82 mg/dL (75-110); POTASSIUM 3.6 mmol/L (3.6-5.0); SODIUM 137.7 mmol/L (137-145)
[2018-09-13] MEDS: INSULIN LISPRO 100 UNIT/ML 3 ML VIAL SUBCUT SCH ×3 (06:25→20:53)
--- NOTE | 2018-09-13 09:23 | PDOC PROGRESS REPORT ---
Subjective Progress Note for:: 09/13/18 Subjective:: Patient sitting in chair. Light hurts her eyes as she has had lens transplants. She is complaining of headache. She is tolerating full liquids Reason For Visit: ILEUS ARF NAUSEA, VOMITING Physical Exam Vital Signs: Temp Pulse Resp BP Pulse Ox 97.4 F 85 18 148/79 H 99 09/13/18 08:08 09/13/18 08:08 09/13/18 03:17 09/13/18 08:08 09/13/18 08:08 Intake & Output 09/12/18 09/13/18 09/14/18 06:59 06:59 06:59 Intake Total 2600 2710 Output Total 790 1475 Balance 1810 1235 Weight 73 kg 71.4 kg General appearance: PRESENT: no acute distress GI/Abdominal exam: PRESENT: other - Midline dressing removed. Wound approximated with hector. Abdomen soft no concerning findings Results Laboratory Results: 09/13/18 04:50 09/13/18 04:50 09/12/18 09/12/18 09/13/18 09:50 17:40 04:50 WBC 12.8 H RBC 3.57 L Hgb 10.2 L Hct 30.2 L MCV 85 MCH 28.6 MCHC 33.8 RDW 13.6 Plt Count 283 Carbonic Acid 1.00 L HCO3/H2CO3 Ratio 18:1 ABG pH 7.36 ABG pCO2 33.2 L ABG pO2 146.1 H ABG HCO3 18.4 L ABG O2 Saturation 98.8 H ABG Base Excess -6.2 FiO2 3L Sodium 138.6 Potassium 3.9 Chloride 115 H Carbon Dioxide 16 L Anion Gap 8 BUN 17 Creatinine 0.98 Est GFR ( Amer) > 60 Est GFR (Non-Af Amer) 54 L Glucose 87 Calcium 8.1 L 09/13/18 04:50 WBC RBC Hgb Hct MCV MCH MCHC RDW Plt Count Carbonic Acid HCO3/H2CO3 Ratio ABG pH ABG pCO2 ABG pO2 ABG HCO3 ABG O2 Saturation ABG Base Excess FiO2 Sodium 137.7 Potassium 3.6 Chloride 113 H Carbon Dioxide 18 L Anion Gap 7 BUN 15 Creatinine 0.80 Est GFR ( Amer) > 60 Est GFR (Non-Af Amer) > 60 Glucose 82 Calcium 8.5 09/08/18 09/08/1819 16:04 16:04 23:54 Creatine Kinase 147 H 132 CK-MB (CK-2) 0.90 Troponin I 0.015 09/08/18 09/09/18 09/09/18 23:54 05:53 05:53 Creatine Kinase 140 H CK-MB (CK-2) 1.40 1.79 Troponin I 0.076 0.109 09/09/18 09/09/18 09/09/18 12:34 12:34 15:35 Creatine Kinase Cancelled 150 H CK-MB (CK-2) Cancelled Troponin I Cancelled 09/09/18 09/09/18 09/10/18 15:35 21:15 03:48 Creatine Kinase CK-MB (CK-2) 2.30 Troponin I 0.286 0.305 0.279 09/11/18 09/12/18 09/12/18 04:26 08:05 08:05 Creatine Kinase 205 H CK-MB (CK-2) 2.04 Troponin I 0.169 0.094 Impressions: Abdomen/Pelvis CT 09/08/18 23:19 IMPRESSION: Enteric tube in the stomach. Little change in the appearance of several mildly prominent fluid-filled loops of small bowel particularly in the right lower quadrant. Small bowel feces sign suggests chronic stasis. Partial or incomplete obstruction is not excluded. Trace of free fluid in the pelvis. Sigmoid diverticulosis. Evidence of prior granulomatous disease. TECHNICAL DOCUMENTATION: Quality ID # 436: Final reports with documentation of one or more dose reduction techniques (e.g., Automated exposure control, adjustment of the mA and/or kV according to patient size, use of iterative reconstruction technique) copyright 2010 [employer]- All Rights Reserved KUB X-Ray 09/08/18 23:19 IMPRESSION: Tip of the enteric tube likely in the body of the stomach on the second submitted image, as above copyright 2010 [employer]- All Rights Reserved Acute Abdomen Series 09/10/18 00:00 IMPRESSION: Findings compatible with small bowel obstruction with multiple persistent loops of dilated small throughout the abdomen measuring up to 3.9 cm. Cardiac Imaging Nuclear Medicine 09/10/18 00:00 IMPRESSION: Negative study Chest X-Ray 09/12/18 00:00 IMPRESSION: Findings are most consistent with vascular congestion with bilateral pleural effusions. Chest/Abdomen CTA 09/12/18 00:00 IMPRESSION: Small bilateral pleural effusions with bibasilar atelectasis. Underlying obstructive lung. Occluded left proximal subclavian artery No CTA evidence of thoracic aortic dissection or acute pulmonary emboli. Assessment & Plan - Diagnosis (1) Abdominal pain Qualifiers: Abdominal location: generalized Qualified Code(s): R10.84 - Generalized abdominal pain Is this a current diagnosis for this admission?: Yes Plan: Impression: Patient is postoperative day 3 status post port or laparotomy, lysis of adhesions occasions. Minor issues including headache, decreased stamina. Mentation: 1. We will keep on full liquids today; allow IV antibiotics to conclude; discontinue IV Tylenol. 2. Increased ambulation and pulmonary toilet. 3. Because of advanced age, and deconditioned state, patient may require short rehab stay; will discuss with family over the weekend. (2) Weight loss Is this a current diagnosis for this admission?: Yes (3) Hyperlipidemia Is this a current diagnosis for this admission?: Yes (4) Hypertension Qualifiers: Hypertension type: essential hypertension Qualified Code(s): I10 - Essential (primary) hypertension Is this a current diagnosis for this admission?: Yes (5) Hypothyroidism Is this a current diagnosis for this admission?: Yes (6) Near syncope Is this a current diagnosis for this admission?: Yes (7) Weakness generalized Is this a current diagnosis for this admission?: Yes
[2018-09-13] MEDS: FAMOTIDINE INJ/PF 20 MG/2 ML SDV IV SCH (09:24)
[2018-09-13] MEDS: CLOPIDOGREL BISULFATE 75 MG TABLET NG SCH (09:24)
[2018-09-13] MEDS ORDERED: DIAZEPAM 2 MG TABLET PO PRN (12:26)
[2018-09-13] MEDS ORDERED: PROMETHAZINE HCL 25 MG SUPP.RECT PR PRN (12:27)
[2018-09-13] MEDS ORDERED: FUROSEMIDE INJ/PF 40 MG/4 ML SDV IV ONE (12:29)
--- NOTE | 2018-09-13 14:34 | PROGRESS NOTE E ---
Progress Note NAME: SANDRA SPRINGER : 1935 AGE: 83Y DATE: 09/13/2018 ROOM: 334 SUBJECTIVE: The patient is currently lying in bed. She states that she feels better today. She does complain of some intermittent shortness of breath but overall her pain is improved. The patient denies any nausea, vomiting, diarrhea. No dizziness, chest pain. No fevers, chills. The patient has been afebrile, blood pressure has been in a good range, and the patient did not voice any other concerns at this time. REVIEW OF SYSTEMS: The rest of review of systems negative. MEDICATIONS: Reviewed. OBJECTIVE: GENERAL: The patient is an 83-year-old female who is awake, alert, and oriented to person, time, place, situation. She is verbal, conversational. Does not appear to be in any acute distress. VITAL SIGNS: Temperature is 98.2, pulse 86, respirations 18, blood pressure is 150/89, oxygen saturation is 100% on 2 liters nasal cannula. SKIN: Warm and dry. No rash. She is not diaphoretic. HEENT: Pupils equal, round and reactive to light and accommodation. Conjunctivae are pink. No evidence of JVP. CARDIOVASCULAR: Heart is regular. There is no rub. CHEST: The patient has bilateral basilar crackles. Symmetrical, unlabored. ABDOMEN: Soft, nontender, nondistended. BACK: No CVA tenderness, sacral edema. EXTREMITIES: No clubbing, cyanosis, or edema. PSYCHIATRIC: Appropriate affect, pleasant mood. DIAGNOSTICS: Lab values are as follows - hematology obtained on 09/13/2018; WBC 12.9, hemoglobin is 12.2, hematocrit 30.2, platelet count is 283,000. Chemistry obtained on 09/13/2018; sodium is 137, potassium 3.6, chloride is 113, carbon dioxide 18, BUN 15, creatinine is 0.80, glucose 82, calcium is 8.5. IMPRESSION AND PLAN: 1. BOWEL OBSTRUCTION, STATUS POST OPERATIVE REPAIR. The patient did have an exploratory lap with lysis of adhesions. Diet has been advanced to full liquids at this time. 2. HYPERTENSION. The patient has been resumed on her home oral medications. Will follow. 3. PULMONARY HYPERTENSION. Will follow. The patient's diuretics have been held. She has received significant amount of volume. Do hear some crackles. Will diurese her once with IV Lasix and resume her oral Lasix dosages in the morning. CODE STATUS: The patient is a full code. DISPOSITION: Depending on the patient's symptomatology and diagnostic findings will reevaluate in the a.m. TIME SPENT: On this follow up, including assessment and plan, physical examination, patient education, review of records is 25 minutes. DICTATING PHYSICIAN: NED JON NP [id number] PHY#: [id number] ID: [id number] JOB#: [id number] ACCT: [id number] cc: >
[2018-09-13] MEDS ORDERED: FUROSEMIDE INJ/PF 40 MG/4 ML SDV ONE (15:34)
[2018-09-13] MEDS: MAG HYDROX/AL HYDROX/SIMETH SUSP 30 ML UDCUP PO PRN (15:38)
--- NOTE | 2018-09-13 19:44 | Progress Note ---
Provider Note Provider Note: CARDIOLOGY PROGRESS NOTE by Dr. Aide Sommer on 09/13/2018. SUBJECTIVE: The patient earlier was found to be slightly short of breath with some crackles in the chest suggestive of heart failure. The patient used to be on Lasix at home and has been offered. She received 1 dose of Lasix and now is without any shortness of breath. There is no PND orthopnea. There is no leg edema. There is no chest pain or discomfort. There is no arrhythmia seen on the monitor. There is no TIA CVA symptoms. The patient states that she had a bowel movement and also is passing flatus fairly freely. She has no abdominal pain. There is no nausea vomiting she is tolerating clear liquids. PHYSICAL EXAMINATION: The patient appears to be chronically ill. She is a frail build. She is in no acute distress. Selected Entries 09/13/18 11:33 Temperature 98.2 F Temperature Oral Source Pulse Rate 86 Respiratory 18 Rate Blood Pressure 150/89 H Blood Pressure 109 Mean BP Location Left Arm BP Position Supine O2 Sat by Pulse 100 Oximetry Oxygen Flow 2.50 Rate Oxygen Delivery Nasal Cannula Method HEAD: Is atraumatic normocephalic. EYES: Pupils are equal round regular reactive to light accommodation. Extraocular movements are normal. There is no internal pallor. There is no scleral icterus. EARS: Tympanic membranes are intact. External auditory canals are clear. NOSE: There is no deviated nasal septum. There is no inflammation of the nasal mucous membrane. MOUTH: Mucous mornings of mouth are moist tongue is moist there is no ulcers there is no bleeding from the gums. THROAT: There is no redness of the oropharynx. There is no exudates. SKIN: There is no skin rashes or skin lesions. There is no particular ecchymosis. NECK: Is supple there is no JVD. Bilateral carotid bruits present. There is no goiter. There is no lymphadenopathy. There is no goiter. LUNGS: There is diminished air entry prolonged expiration. There is no rhonchi rales or wheezing. HEART: S1-S2 is heard. There is no S3 gallop there is no S4 gallop systolic murmur left sternal border and the apex there is no rub is mildly distended. There is no paraspinal megaly. Bowel sounds are absent. Surgical dressing is dry. EXTREMITIES femorals are diminished there is faint femoral both bruits bilaterally. Neck pulses are diminished. There is no pedal edema. There is no DVT or cellulitis. 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 PSYCHIATRIC: The patient's judgment and insight are intact her affect is normal. Labs- All tests 24 hr 09/12/18 09/13/18 09/13/18 21:19 04:50 04:50 WBC 12.8 H RBC 3.57 L Hgb 10.2 L Hct 30.2 L MCV 85 MCH 28.6 MCHC 33.8 RDW 13.6 Plt Count 283 Sodium 137.7 Potassium 3.6 Chloride 113 H Carbon Dioxide 18 L Anion Gap 7 BUN 15 Creatinine 0.80 Est GFR ( Amer) > 60 Est GFR (Non-Af Amer) > 60 Glucose 82 POC Glucose 86 Calcium 8.5 09/13/18 09/13/18 07:16 11:35 WBC RBC Hgb Hct MCV MCH MCHC RDW Plt Count Sodium Potassium Chloride Carbon Dioxide Anion Gap BUN Creatinine Est GFR ( Amer) Est GFR (Non-Af Amer) Glucose POC Glucose 87 102 Calcium Abdomen/Pelvis CT 09/08/18 00:00 IMPRESSION: Several borderline to mildly dilated fluid-filled loops of small bowel with relative decompression of distal small bowel loops. A partial or incomplete obstruction should be considered. No free air or free fluid. Colonic diverticulosis without CT evidence for diverticulitis. Left basilar infiltrate. Evidence of prior granulomatous disease. Extensive atheromatous change. TECHNICAL DOCUMENTATION: Quality ID # 436: Final reports with documentation of one or more dose reduction techniques (e.g., Automated exposure control, adjustment of the mA and/or kV according to patient size, use of iterative reconstruction technique) copyright 2010 [employer]- All Rights Reserved Abdomen/Pelvis CT 09/08/18 23:19 IMPRESSION: Enteric tube in the stomach. Little change in the appearance of several mildly prominent fluid-filled loops of small bowel particularly in the right lower quadrant. Small bowel feces sign suggests chronic stasis. Partial or incomplete obstruction is not excluded. Trace of free fluid in the pelvis. Sigmoid diverticulosis. Evidence of prior granulomatous disease. TECHNICAL DOCUMENTATION: Quality ID # [id number]: Final reports with documentation of one or more dose reduction techniques (e.g., Automated exposure control, adjustment of the mA and/or kV according to patient size, use of iterative reconstruction technique) copyright 2010 [employer]- All Rights Reserved KUB X-Ray 09/08/18 23:19 IMPRESSION: Tip of the enteric tube likely in the body of the stomach on the second submitted image, as above copyright 2010 [employer]- All Rights Reserved Acute Abdomen Series 09/10/18 00:00 IMPRESSION: Findings compatible with small bowel obstruction with multiple persistent loops of dilated small throughout the abdomen measuring up to 3.9 cm. Cardiac Imaging Nuclear Medicine 09/10/18 00:00 IMPRESSION: Negative study Chest X-Ray 09/10/18 19:59 IMPRESSION: No pneumothorax post right subclavian central line placement Chest X-Ray 09/12/18 00:00 IMPRESSION: Findings are most consistent with vascular congestion with bilateral pleural effusions. Chest/Abdomen CTA 09/12/18 00:00 IMPRESSION: Small bilateral pleural effusions with bibasilar atelectasis. Underlying obstructive lung. Occluded left proximal subclavian artery No CTA evidence of thoracic aortic dissection or acute pulmonary emboli. MPRESSION RECOMMENDATION: IMPRESSION: 1. Elevated troponin I most likely secondary to supply demand mismatch in a patient with dehydration, acute on chronic kidney disease. Note the troponin is trending down. Patient does did not have an anginal symptoms. Her chest tightness and shortness of breath is secondary to COPD. 2. Acute bowel obstruction: She is post surgery.. She is beginning to have bowel movements. 3. Severe pulmonary hypertension:? Etiology. Patient denies history of asthma, but does have a history of COPD, as per her records. The patient also on albuterol inhaler at home. . 4. Coronary artery disease:: History of ostial RCA stent in 2007. The patient on 09/2017 had a negative IV Lexiscan Cardiolite stress test. 5. Probably volume overload CHF. This is resolved with Lasix. With home dosage of Lasix.. 6 peripheral vascular disease: Patient with carotid stenosis, and left subclavian stenosis with possible symptoms of subclavian steal. 7. Hypertension: Well controlled 8. 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 9. Acute on chronic kidney disease. At present stage III. Avoid nephrotoxic drugs. Continue IV hydration. 10. Hypothyroidism: Continue thyroid replacement. 11. Hyperlipidemia: Would recommend restarting the patient's statin once the patient takes by mouth. 12. Chronic left bundle branch block pattern. Recommendation continue current medication. Medications reviewed. Management plan discussed with the attending physician. Discussed with the patient and patient's family. Medical decision making is of moderate complexity. 40 minutes spent on this patient with more than 50% of time spent on direct patient care. Will follow.
[2018-09-13] MEDS: FAMOTIDINE 20 MG TABLET PO SCH (21:50)
[2018-09-13] MEDS: ATORVASTATIN CALCIUM 20 MG TABLET PO SCH (21:50)
[2018-09-14] MEDS: INSULIN LISPRO 100 UNIT/ML 3 ML VIAL SUBCUT SCH ×5 (00:33→20:10)
[2018-09-14 04:19] LABS: HEMATOCRIT 33.2 % (36.0-47.0); HEMOGLOBIN 11.2 g/dL (12.0-15.5); MEAN CORPUSCULAR HEMOGLOBIN 27.7 pg (27.0-33.4); MEAN CORPUSCULAR HGB CONC 33.6 g/dL (32.0-36.0); MEAN CORPUSCULAR VOLUME 82 fl (80-97); PLATELET COUNT 344 10^3/uL (150-450); RED BLOOD COUNT 4.03 10^6/uL (3.72-5.28); RED CELL DISTRIBUTION WIDTH 13.6 % (11.5-14.0); WHITE BLOOD COUNT 14.1 10^3/uL (4.0-10.5)
[2018-09-14 04:40] LABS: ANION GAP 8 (5-19); BLOOD UREA NITROGEN 13 mg/dL (7-20); CALCIUM 8.8 mg/dL (8.4-10.2); CARBON DIOXIDE 23 mmol/L (22-30); CHLORIDE 107 mmol/L (98-107); GLUCOSE 93 mg/dL (75-110); POTASSIUM 3.1 mmol/L (3.6-5.0); SODIUM 137.6 mmol/L (137-145)
[2018-09-14] MEDS: LEVOTHYROXINE SODIUM 0.025 MG TABLET PO SCH (05:28)
[2018-09-14] MEDS: LEVOTHYROXINE SODIUM 0.1 MG TABLET PO SCH (05:29)
[2018-09-14] MEDS: KETOROLAC TROMETHAMINE INJ/PF 30 MG/1 ML SDV IV PRN (05:29)
[2018-09-14] MEDS ORDERED: (PENDING PHARMACY ID) (Levothyroxine Sodium [Synthroid] 125 MCG) PO SCH (06:00)
[2018-09-14] MEDS ORDERED: POTASSIUM CHLORIDE 10 MEQ CAPSULE.ER PO ONE (08:00)
[2018-09-14] MEDS ORDERED: POTASSIUM CHLORIDE 20 MEQ/15 ML UDCUP PO ONE (08:07)
[2018-09-14] MEDS ORDERED: ACETAMINOPHEN 325 MG TABLET PO PRN (09:02)
--- NOTE | 2018-09-14 09:13 | PDOC PROGRESS REPORT ---
Subjective Progress Note for:: 09/14/18 Subjective:: sleepy but arousable; no c/o of N/V, no abdominal pain, bowel function back Reason For Visit: ILEUS ARF NAUSEA, VOMITING Physical Exam Vital Signs: Temp Pulse Resp BP Pulse Ox 97.6 F 87 18 142/76 H 99 09/14/18 08:02 09/14/18 08:02 09/14/18 08:02 09/14/18 08:02 09/14/18 08:02 Intake & Output 09/13/18 09/14/18 09/15/18 06:59 06:59 06:59 Intake Total 2710 730 Output Total 1475 Balance 1235 730 Weight 71.4 kg 70 kg General appearance: PRESENT: other - sleepy, arousable Respiratory exam: PRESENT: clear to auscultation maikel Cardiovascular exam: PRESENT: RRR GI/Abdominal exam: PRESENT: normal bowel sounds, rigid, other - wound C/D/I Results Laboratory Results: 09/14/18 04:00 09/14/18 04:00 09/14/18 09/14/18 04:00 04:00 WBC 14.1 H RBC 4.03 Hgb 11.2 L Hct 33.2 L MCV 82 MCH 27.7 MCHC 33.6 RDW 13.6 Plt Count 344 Sodium 137.6 Potassium 3.1 L Chloride 107 Carbon Dioxide 23 Anion Gap 8 BUN 13 Creatinine 0.84 Est GFR ( Amer) > 60 Est GFR (Non-Af Amer) > 60 Glucose 93 Calcium 8.8 Magnesium 1.9 09/10/18 19:09 Peritoneal Gram Stain - Final 09/10/18 19:09 Peritoneal Body Fluid Culture - Final NO AEROBIC OR ANAEROBIC ORGANISMS RECOVERED 09/10/18 04:05 Clean Catch Midstream Urine Culture - Final Proteus Mirabilis Group B Beta Streptococcus 09/08/18 09/08/18 09/08/18 16:04 16:04 23:54 Creatine Kinase 147 H 132 CK-MB (CK-2) 0.90 Troponin I 0.015 09/08/18 09/09/18 09/09/18 23:54 05:53 05:53 Creatine Kinase 140 H CK-MB (CK-2) 1.40 1.79 Troponin I 0.076 0.109 09/09/18 09/09/18 09/09/18 12:34 12:34 15:35 Creatine Kinase Cancelled 150 H CK-MB (CK-2) Cancelled Troponin I Cancelled 09/09/18 09/09/18 09/10/18 15:35 21:15 03:48 Creatine Kinase CK-MB (CK-2) 2.30 Troponin I 0.286 0.305 0.279 09/11/18 09/12/18 09/12/18 04:26 08:05 08:05 Creatine Kinase 205 H CK-MB (CK-2) 2.04 Troponin I 0.169 0.094 Impressions: Abdomen/Pelvis CT 09/08/18 23:19 IMPRESSION: Enteric tube in the stomach. Little change in the appearance of several mildly prominent fluid-filled loops of small bowel particularly in the right lower quadrant. Small bowel feces sign suggests chronic stasis. Partial or incomplete obstruction is not excluded. Trace of free fluid in the pelvis. Sigmoid diverticulosis. Evidence of prior granulomatous disease. TECHNICAL DOCUMENTATION: Quality ID # 436: Final reports with documentation of one or more dose reduction techniques (e.g., Automated exposure control, adjustment of the mA and/or kV according to patient size, use of iterative reconstruction technique) copyright 2010 [employer]- All Rights Reserved KUB X-Ray 09/08/18 23:19 IMPRESSION: Tip of the enteric tube likely in the body of the stomach on the second submitted image, as above copyright 2010 [employer]- All Rights Reserved Acute Abdomen Series 09/10/18 00:00 IMPRESSION: Findings compatible with small bowel obstruction with multiple persistent loops of dilated small throughout the abdomen measuring up to 3.9 cm. Cardiac Imaging Nuclear Medicine 09/10/18 00:00 IMPRESSION: Negative study Chest X-Ray 09/12/18 00:00 IMPRESSION: Findings are most consistent with vascular congestion with bilateral pleural effusions. Chest/Abdomen CTA 09/12/18 00:00 IMPRESSION: Small bilateral pleural effusions with bibasilar atelectasis. Underlying obstructive lung. Occluded left proximal subclavian artery No CTA evidence of thoracic aortic dissection or acute pulmonary emboli. Assessment & Plan - Diagnosis (1) Bowel obstruction Qualifiers: Intestinal obstruction type: obstruction due to adhesions Intestinal obstruction extent: complete Qualified Code(s): K56.52 - Intestinal adhesions [bands] with complete obstruction Is this a current diagnosis for this admission?: Yes (2) Bowel obstruction Qualifiers: Intestinal obstruction extent: complete Is this a current diagnosis for this admission?: Yes (4) UTI (urinary tract infection) Qualifiers: Urinary tract infection type: acute cystitis Hematuria presence: without hematuria Qualified Code(s): N30.00 - Acute cystitis without hematuria Is this a current diagnosis for this admission?: Yes - Plan Summary Plan Summary: A/ POD#4 after laparotomy, CHAYITO Patient sleepy but arousable, taking little po VSS, AF bowel function returned Abdomen soft, wound C/D/I Urine cx positive for Proteus and group B streptococcus sensitive to most abx P/ advance diet to regular, low Na Resume IVF Start Unasyn 3 gr ivpb q6 for UTI
[2018-09-14] MEDS ORDERED: AMPICILLIN SOD/SULBACTAM 3 GM VIAL IV SCH (09:15)
[2018-09-14] MEDS: CARVEDILOL 6.25 MG TABLET PO SCH ×2 (09:54→22:35)
[2018-09-14] MEDS: LISINOPRIL 10 MG TABLET PO SCH (09:55)
[2018-09-14] MEDS: CLOPIDOGREL BISULFATE 75 MG TABLET PO SCH (09:55)
[2018-09-14] MEDS: CITALOPRAM HYDROBROMIDE 20 MG TABLET PO SCH (09:56)
[2018-09-14] MEDS: FAMOTIDINE 20 MG TABLET PO SCH ×2 (09:56→22:34)
--- NOTE | 2018-09-14 09:59 | PROGRESS NOTE E ---
Progress Note NAME: SANDRA SPRINGER : 1935 AGE: 83Y DATE: 09/14/2018 ROOM: 334 SUBJECTIVE: Patient is lying in bed this morning. She is sleepy. The patient does awaken and state that she wants some rest and does go back to sleep. The patient did well with her trays yesterday. There have been no reported episodes of vomiting nor diarrhea. The patient has been afebrile. Her blood pressures have been slightly elevated, but within acceptable range, and the patient has not voiced any other concerns at this time. REVIEW OF SYSTEMS: The rest of the review of systems is negative. MEDICATION: Reviewed. OBJECTIVE: GENERAL: Patient is an 83-year-old female, who is awake and alert. She is oriented to person, place, time and situation. She is verbal and conversational. Does not appear to be distressed. VITAL SIGNS: Temperature is 98.2, pulse 89, respirations 20, blood pressure 146/81, oxygen saturation 100% on 2 liters nasal cannula. SKIN: Warm and dry. No rash. She is not diaphoretic. HEENT: Pupils equal, round and reactive to light and accommodation. Conjunctivae are pink. No evidence of JVP. CVS: Heart is regular. There is no rub. CHEST: Clear, symmetrical, unlabored. ABDOMEN: Soft, nontender. Postsurgical. EXTREMITIES: No clubbing, cyanosis or edema. PSYCHIATRIC: Patient is sleepy this morning. DIAGNOSTICS: Lab values are as follows: Hematology obtained on 09/14/2018: WBCs are 14.1, hemoglobin is 11.2, hematocrit is 33.2, platelet count is 344,000. Chemistry obtained on 09/14/2018: Sodium is 137, potassium 3.5, chloride is 107, carbon dioxide is 23, BUN 13, creatinine 0.4, glucose 73, calcium is 8.8, magnesium is 1.9. IMPRESSION AND PLAN: 1. BOWEL OBSTRUCTION, STATUS POST OPERATIVE REPAIR. The patient had an exploratory lap with lysis of adhesions. Diet has been advanced to full liquids at this time by surgery. 2. HYPERTENSION. Have resumed her home medications. 3. PULMONARY HYPERTENSION. Will follow. Diuretics have been resumed. The patient was diuresed with 1 dose of IV Lasix yesterday. DISPOSITION: The patient is a FULL CODE. Pending patient's symptomatology and diagnostic findings, will reevaluate in the a.m. The patient can be discharged as soon as cleared by Surgery. Time spent on this followup, including assessment, plan, physical examination, patient education and review of records, is 20 minutes. DICTATING PHYSICIAN: NED JON NP [id number] PHY#: [id number] ID: [id number] JOB#: [id number] ACCT: [id number] cc: > MTDD
[2018-09-14] MEDS ORDERED: POTASSIUM CHLORIDE 20 MEQ/15 ML UDCUP ONE (10:24)
[2018-09-14] MEDS: NORMAL SALINE 1000 ML 1,000 ML IV PRN (10:45)
[2018-09-14] MEDS: AMPICILLIN SODIUM/SULBACTAM NA 3 GM in NORMAL SALINE 100 ML IV SCH ×2 (12:45→20:29)
--- NOTE | 2018-09-14 13:49 | Progress Note ---
Provider Note Provider Note: CARDIOLOGY PROGRESS NOTE by Dr. Aide Sommer on 09/14/2018. SUBJECTIVE: The patient denies any further chest pain or chest tightness. There is no shortness of breath. There is no cough or wheezing. There is no PND orthopnea. There is no TIA CVA symptoms. There is no leg edema. The patient is passing flatus bleeding freely. She denies any abdominal pain. There is no nausea vomiting. She is tolerating tolerating clear liquid diet. PHYSICAL EXAMINATION: The patient appears to be chronically ill. She is in no acute distress. Selected Entries 09/14/18 08:02 Temperature 97.6 F Temperature Oral Source Pulse Rate 87 Respiratory 18 Rate Blood Pressure 142/76 H Blood Pressure 98 Mean BP Location Left Arm BP Position Supine O2 Sat by Pulse 99 Oximetry Oxygen Delivery Room Air Method HEAD: Is atraumatic normocephalic. EYES: Pupils are equal round regular reacti ve to light accommodation. Extraocular movements are normal. There is no internal pallor. There is no scleral icterus. EARS: Tympanic membranes are intact. External auditory canals are clear. NOSE: There is no deviated nasal septum. There is no inflammation of the nasal mucous membrane. MOUTH: Mucous mornings of mouth are moist tongue is moist there is no ulcers there is no bleeding from the gums. THROAT: There is no redness of the oropharynx. There is no exudates. SKIN: There is no skin rashes or skin lesions. There is no particular ecchymosis. NECK: Is supple there is no JVD. Bilateral carotid bruits present. There is no goiter. There is no lymphadenopathy. There is no goiter. LUNGS: There is diminished air entry prolonged expiration. There is no rhonchi rales or wheezing. HEART: S1-S2 is heard. There is no S3 gallop there is no S4 gallop systolic murmur left sternal border and the apex there is no rub is mildly distended. There is no paraspinal megaly. Bowel sounds are absent. Surgical dressing is dry. EXTREMITIES femorals are diminished there is faint femoral both bruits bilaterally. Neck pulses are diminished. There is no pedal edema. There is no DVT or cellulitis. FISH AND WILDLIFE WARDEN: The patient is conscious awake alert oriented x3 with no focal deficits. PSYCHIATRIC: The patient's judgment and insight are intact her affect is normal. Labs- All tests 24 hr 04/06/19 04/07/19 04/07/19 21:50 04:00 04:00 WBC 14.1 H RBC 4.03 Hgb 11.2 L Hct 33.2 L MCV 82 MCH 27.7 MCHC 33.6 RDW 13.6 Plt Count 344 Sodium 137.6 Potassium 3.1 L Chloride 107 Carbon Dioxide 23 Anion Gap 8 BUN 13 Creatinine 0.84 Est GFR ( Amer) > 60 Est GFR (Non-Af Amer) > 60 Glucose 93 POC Glucose 113 H Calcium 8.8 Magnesium 1.9 09/14/18 09/14/18 07:16 11:47 WBC RBC Hgb Hct MCV MCH MCHC RDW Plt Count Sodium Potassium Chloride Carbon Dioxide Anion Gap BUN Creatinine Est GFR ( Amer) Est GFR (Non-Af Amer) Glucose POC Glucose 91 112 H Calcium Magnesium Abdomen/Pelvis CT 09/08/18 00:00 IMPRESSION: Several borderline to mildly dilated fluid-filled loops of small bowel with relative decompression of distal small bowel loops. A partial or incomplete obstruction should be considered. No free air or free fluid. Colonic diverticulosis without CT evidence for diverticulitis. Left basilar infiltrate. Evidence of prior granulomatous disease. Extensive atheromatous change. TECHNICAL DOCUMENTATION: Quality ID # 436: Final reports with documentation of one or more dose reduction techniques (e.g., Automated exposure control, adjustment of the mA and/or kV according to patient size, use of iterative reconstruction technique) copyright 2010 [employer]- All Rights Reserved Abdomen/Pelvis CT 09/08/18 23:19 IMPRESSION: Enteric tube in the stomach. Little change in the appearance of several mildly prominent fluid-filled loops of small bowel particularly in the right lower quadrant. Small bowel feces sign suggests chronic stasis. Partial or incomplete obstruction is not excluded. Trace of free fluid in the pelvis. Sigmoid diverticulosis. Evidence of prior granulomatous disease. TECHNICAL DOCUMENTATION: Quality ID # 436: Final reports with documentation of one or more dose reduction techniques (e.g., Automated exposure control, adjustment of the mA and/or kV according to patient size, use of iterative reconstruction technique) copyright 2010 [employer]- All Rights Reserved KUB X-Ray 09/08/18 23:19 IMPRESSION: Tip of the enteric tube likely in the body of the stomach on the second submitted image, as above copyright 2010 [employer]- All Rights Reserved Acute Abdomen Series 09/10/18 00:00 IMPRESSION: Findings compatible with small bowel obstruction with multiple persistent loops of dilated small throughout the abdomen measuring up to 3.9 cm. Cardiac Imaging Nuclear Medicine 09/10/18 00:00 IMPRESSION: Negative study Chest X-Ray 09/10/18 19:59 IMPRESSION: No pneumothorax post right subclavian central line placement Chest X-Ray 09/12/18 00:00 IMPRESSION: Findings are most consistent with vascular congestion with bilateral pleural effusions. Chest/Abdomen CTA 09/12/18 00:00 IMPRESSION: Small bilateral pleural effusions with bibasilar atelectasis. Underlying obstructive lung. Occluded left proximal subclavian artery No CTA evidence of thoracic aortic dissection or acute pulmonary emboli. MPRESSION RECOMMENDATION: IMPRESSION: 1. Elevated troponin I most likely secondary to supply demand mismatch in a patient with dehydration, acute on chronic kidney disease. Note the troponin is trending down. Patient does not, and did not have an anginal symptoms this admission. 2. Acute bowel obstruction: She is post surgery.. She is beginning to have bowel movements. 3. Severe pulmonary hypertension:? Etiology. Patient denies history of asthma, but does have a history of COPD, as per her records. The patient also on albuterol inhaler at home. . 4. Coronary artery disease:: History of ostial RCA stent in 2007. The patient on 09/2017 had a negative IV Lexiscan Cardiolite stress test. 5. Probably volume overload CHF. This is resolved with Lasix. With home dosage of Lasix.. 6 peripheral vascular disease: Patient with carotid stenosis, and left subclavian stenosis with possible symptoms of subclavian steal. 7. Hypertension: Well controlled 8. 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 9. Acute on chronic kidney disease. At present stage III. Avoid nephrotoxic drugs. Continue IV hydration. 10. Hypothyroidism: Continue thyroid replacement. 11. Hyperlipidemia: Would recommend restarting the patient's statin once the patient takes by mouth. 12. Chronic left bundle branch block pattern. Recommendation continue current medication. Medications reviewed. Management plan discussed with the attending physician. Discussed with the patient and patient's family. Medical decision making is of moderate complexity. 40 minutes spent on this patient with more than 50% of time spent on direct patient care. Cardiac status is stable. Will sign off. Please call me if my services are needed again. Thank you for this consultation.
[2018-09-14] MEDS: FUROSEMIDE 40 MG TABLET PO SCH (20:06)
[2018-09-14] MEDS: ATORVASTATIN CALCIUM 20 MG TABLET PO SCH (22:34)
[2018-09-15] MEDS: AMPICILLIN SODIUM/SULBACTAM NA 3 GM in NORMAL SALINE 100 ML IV SCH ×5 (00:45→23:29)
[2018-09-15] MEDS: NORMAL SALINE 1000 ML 1,000 ML IV PRN (01:47)
[2018-09-15] MEDS: INSULIN LISPRO 100 UNIT/ML 3 ML VIAL SUBCUT SCH ×5 (01:50→21:30)
[2018-09-15] MEDS: LEVOTHYROXINE SODIUM 0.025 MG TABLET PO SCH (06:12)
[2018-09-15] MEDS: LEVOTHYROXINE SODIUM 0.1 MG TABLET PO SCH (06:13)
[2018-09-15 06:39] LABS: HEMATOCRIT 28.3 % (36.0-47.0); HEMOGLOBIN 9.6 g/dL (12.0-15.5); MEAN CORPUSCULAR HGB CONC 33.8 g/dL (32.0-36.0); MEAN CORPUSCULAR VOLUME 83 fl (80-97); PLATELET COUNT 309 10^3/uL (150-450); RED BLOOD COUNT 3.41 10^6/uL (3.72-5.28); RED CELL DISTRIBUTION WIDTH 13.6 % (11.5-14.0); WHITE BLOOD COUNT 12.3 10^3/uL (4.0-10.5)
[2018-09-15 06:55] LABS: BLOOD UREA NITROGEN 13 mg/dL (7-20); GLUCOSE 93 mg/dL (75-110); POTASSIUM 3.2 mmol/L (3.6-5.0)
[2018-09-15 07:01] LABS: CARBON DIOXIDE 26 mmol/L (22-30); CHLORIDE 109 mmol/L (98-107); SODIUM 137.7 mmol/L (137-145)
[2018-09-15 07:06] LABS: ANION GAP 3 (5-19)
[2018-09-15] MEDS: CLOPIDOGREL BISULFATE 75 MG TABLET PO SCH (09:19)
[2018-09-15] MEDS: FAMOTIDINE 20 MG TABLET PO SCH ×2 (09:19→21:51)
[2018-09-15] MEDS: LISINOPRIL 10 MG TABLET PO SCH (09:19)
[2018-09-15] MEDS: CITALOPRAM HYDROBROMIDE 20 MG TABLET PO SCH (09:19)
[2018-09-15] MEDS: FUROSEMIDE 40 MG TABLET PO SCH (09:19)
[2018-09-15] MEDS: CARVEDILOL 6.25 MG TABLET PO SCH ×2 (09:19→21:51)
--- NOTE | 2018-09-15 10:48 | PROGRESS NOTE E ---
Progress Note NAME: SANDRA SPRINGER : 1935 AGE: 83Y DATE: 09/15/2018 ROOM: 334 SUBJECTIVE: The patient is out of bed to the bedside chair. The patient is slowly increasing her appetite. The patient's diet has been advanced; management is per Surgery. The patient has been afebrile. Her blood pressures have been in a good range. The patient does not voice any other concerns at this time. REVIEW OF SYSTEMS: The rest of the review of systems is negative. MEDICATIONS: Medications have been reviewed. OBJECTIVE: GENERAL: The patient is an 83-year-old female who is awake, alert, and oriented. She does not appear to be distressed. VITAL SIGNS: As follows: Temperature is 97.6, pulse 80, respirations 18, blood pressure 132/51, oxygen saturation is 100% on 2 L nasal cannula. SKIN: Warm and dry. No rash, not diaphoretic. HEENT: Pupils are equal, round, and reactive to light and accommodation. Conjunctivae pink. No evidence of JVP. CARDIOVASCULAR: Heart is regular. There is no rub. CHEST: Clear, symmetrical, unlabored. ABDOMEN: Soft, postsurgical, and nontender. EXTREMITIES: No edema. PSYCHIATRIC: Appropriate affect. Pleasant mood. DIAGNOSTICS: Lab values are as follows. Hematology obtained on 09/15/2018: WBCs are 12.3, hemoglobin is 7.6, hematocrit is 28.3, platelet count is 309,000. Chemistry obtained on 09/15/2018: Sodium is 137, potassium 3.2, chloride 109, carbon dioxide 26, BUN 13, creatinine 0.8, glucose 93, calcium is 8.3. IMPRESSION AND PLAN: 1. BOWEL OBSTRUCTION, STATUS POST OPERATIVE REPAIR. The patient is status post exploratory lap with lysis of adhesions. The patient has tolerated full liquids, and diet will be advanced by Surgery. 2. HYPERTENSION. Have resumed home medications. 3. PULMONARY HYPERTENSION. Have resumed the patient's home diuretics. 4. PROTEUS MIRABILIS URINARY TRACT INFECTION. The patient was started on Unasyn by Surgery. DISPOSITION: THE PATIENT IS A FULL CODE. Pending the patient's symptomatology and diagnostic findings, will re-evaluate in the a.m. Time spent on this followup, including assessment/plan, physical examination, patient education, and review of records, is 25 minutes. DICTATING PHYSICIAN: NED JON NP [id number] PHY#: [id number] ID: [id number] JOB#: [id number] ACCT: [id number] cc: >
--- NOTE | 2018-09-15 11:04 | PDOC PROGRESS REPORT ---
Subjective Progress Note for:: 09/15/18 Subjective:: feeling well, alert, cooperative Reason For Visit: ILEUS ARF NAUSEA, VOMITING Physical Exam Vital Signs: Temp Pulse Resp BP Pulse Ox 97.6 F 80 16 132/51 H 98 09/15/18 08:03 09/15/18 08:03 09/15/18 08:03 09/15/18 08:03 09/15/18 09:46 Intake & Output 09/14/18 09/15/18 09/16/18 06:59 06:59 06:59 Intake Total 730 1650 100 Balance 730 1650 100 Weight 70 kg 71.2 kg General appearance: PRESENT: no acute distress Respiratory exam: PRESENT: clear to auscultation maikel Cardiovascular exam: PRESENT: RRR GI/Abdominal exam: PRESENT: soft, other - incision C/D/I Results Laboratory Results: 09/15/18 06:13 09/15/18 06:13 09/15/18 09/15/18 06:13 06:13 WBC 12.3 H RBC 3.41 L Hgb 9.6 L Hct 28.3 L MCV 83 MCH 28.0 MCHC 33.8 RDW 13.6 Plt Count 309 Sodium 137.7 Potassium 3.2 L Chloride 109 H Carbon Dioxide 26 Anion Gap 3 L BUN 13 Creatinine 0.88 Est GFR ( Amer) > 60 Est GFR (Non-Af Amer) > 60 Glucose 93 Calcium 8.0 L 09/10/18 10:00 Zimmerman Catheter Urine Culture - Final Proteus Mirabilis Group B Beta Streptococcus 09/08/18 09/08/18 09/08/18 16:04 16:04 23:54 Creatine Kinase 147 H 132 CK-MB (CK-2) 0.90 Troponin I 0.015 09/08/18 09/09/18 09/09/18 23:54 05:53 05:53 Creatine Kinase 140 H CK-MB (CK-2) 1.40 1.79 Troponin I 0.076 0.109 09/09/18 09/09/18 09/09/18 12:34 12:34 15:35 Creatine Kinase Cancelled 150 H CK-MB (CK-2) Cancelled Troponin I Cancelled 09/09/18 09/09/18 09/10/18 15:35 21:15 03:48 Creatine Kinase CK-MB (CK-2) 2.30 Troponin I 0.286 0.305 0.279 09/11/18 09/12/18 09/12/18 04:26 08:05 08:05 Creatine Kinase 205 H CK-MB (CK-2) 2.04 Troponin I 0.169 0.094 Impressions: Abdomen/Pelvis CT 09/08/18 23:19 IMPRESSION: Enteric tube in the stomach. Little change in the appearance of several mildly prominent fluid-filled loops of small bowel particularly in the right lower quadrant. Small bowel feces sign suggests chronic stasis. Partial or incomplete obstruction is not excluded. Trace of free fluid in the pelvis. Sigmoid diverticulosis. Evidence of prior granulomatous disease. TECHNICAL DOCUMENTATION: Quality ID # 436: Final reports with documentation of one or more dose reduction techniques (e.g., Automated exposure control, adjustment of the mA and/or kV according to patient size, use of iterative reconstruction technique) copyright 2010 [email or web address]- All Rights Reserved KUB X-Ray 09/08/18 23:19 IMPRESSION: Tip of the enteric tube likely in the body of the stomach on the second submitted image, as above copyright 2010 [email or web address]- All Rights Reserved Acute Abdomen Series 09/10/18 00:00 IMPRESSION: Findings compatible with small bowel obstruction with multiple persistent loops of dilated small throughout the abdomen measuring up to 3.9 cm. Cardiac Imaging Nuclear Medicine 09/10/18 00:00 IMPRESSION: Negative study Chest X-Ray 09/12/18 00:00 IMPRESSION: Findings are most consistent with vascular congestion with bilateral pleural effusions. Chest/Abdomen CTA 09/12/18 00:00 IMPRESSION: Small bilateral pleural effusions with bibasilar atelectasis. Underlying obstructive lung. Occluded left proximal subclavian artery No CTA evidence of thoracic aortic dissection or acute pulmonary emboli. Assessment & Plan - Diagnosis (1) Bowel obstruction Qualifiers: Intestinal obstruction type: obstruction due to adhesions Intestinal obstruction extent: complete Qualified Code(s): K56.52 - Intestinal adhesions [bands] with complete obstruction Is this a current diagnosis for this admission?: Yes (2) Bowel obstruction Qualifiers: Intestinal obstruction extent: complete Is this a current diagnosis for this admission?: Yes (4) UTI (urinary tract infection) Qualifiers: Urinary tract infection type: acute cystitis Hematuria presence: without hematuria Qualified Code(s): N30.00 - Acute cystitis without hematuria Is this a current diagnosis for this admission?: Yes - Plan Summary Plan Summary: A/ S/P laparotomy and CHAYITO resolved SBO UTI treated with Unasyn IV Patient much improved toerating soft cardiac doiet well P/ Continue IV Abx Home tomorrow on oral Abx for UTI
[2018-09-15] MEDS: ATORVASTATIN CALCIUM 20 MG TABLET PO SCH (21:51)
[2018-09-16] MEDS: LEVOTHYROXINE SODIUM 0.1 MG TABLET PO SCH (05:41)
[2018-09-16] MEDS: LEVOTHYROXINE SODIUM 0.025 MG TABLET PO SCH (05:42)
[2018-09-16] MEDS: AMPICILLIN SODIUM/SULBACTAM NA 3 GM in NORMAL SALINE 100 ML IV SCH ×3 (05:42→17:17)
[2018-09-16 06:31] LABS: HEMATOCRIT 28.4 % (36.0-47.0); HEMOGLOBIN 9.6 g/dL (12.0-15.5); MEAN CORPUSCULAR HGB CONC 33.7 g/dL (32.0-36.0); MEAN CORPUSCULAR VOLUME 83 fl (80-97); PLATELET COUNT 328 10^3/uL (150-450); RED BLOOD COUNT 3.42 10^6/uL (3.72-5.28); RED CELL DISTRIBUTION WIDTH 13.4 % (11.5-14.0); WHITE BLOOD COUNT 12.2 10^3/uL (4.0-10.5)
[2018-09-16 06:53] LABS: ANION GAP 6 (5-19); BLOOD UREA NITROGEN 9 mg/dL (7-20); CALCIUM 8.4 mg/dL (8.4-10.2); CARBON DIOXIDE 25 mmol/L (22-30); CHLORIDE 109 mmol/L (98-107); GLUCOSE 89 mg/dL (75-110); POTASSIUM 3.2 mmol/L (3.6-5.0); SODIUM 139.5 mmol/L (137-145)
[2018-09-16] MEDS: INSULIN LISPRO 100 UNIT/ML 3 ML VIAL SUBCUT SCH ×4 (08:30→21:49)
[2018-09-16] MEDS: CARVEDILOL 6.25 MG TABLET PO SCH ×2 (09:47→21:48)
[2018-09-16] MEDS: CITALOPRAM HYDROBROMIDE 20 MG TABLET PO SCH (09:47)
[2018-09-16] MEDS: CLOPIDOGREL BISULFATE 75 MG TABLET PO SCH (09:47)
[2018-09-16] MEDS: FUROSEMIDE 40 MG TABLET PO SCH (09:47)
[2018-09-16] MEDS: FAMOTIDINE 20 MG TABLET PO SCH ×2 (09:47→21:48)
[2018-09-16] MEDS: LISINOPRIL 10 MG TABLET PO SCH (09:48)
[2018-09-16] MEDS: POTASSI CL 20 MEQ/50 ML RIDER 20 MEQ/50 ML RTUPB IV SCH ×2 (13:45→16:01)
--- NOTE | 2018-09-16 15:25 | PDOC PROGRESS REPORT ---
Subjective Reason For Visit: ILEUS ARF NAUSEA, VOMITING Physical Exam Vital Signs: Temp Pulse Resp BP Pulse Ox 98.3 F 75 14 122/47 L 100 09/16/18 11:54 09/16/18 14:00 09/16/18 11:54 09/16/18 11:54 09/16/18 11:54 Intake & Output 09/15/18 09/16/18 09/17/18 06:59 06:59 06:59 Intake Total 1650 2264 336 Output Total 425 Balance 1650 1839 336 Weight 71.2 kg 69.8 kg Results Laboratory Results: 09/16/18 05:45 09/16/18 05:45 09/16/18 09/16/18 05:45 05:45 WBC 12.2 H RBC 3.42 L Hgb 9.6 L Hct 28.4 L MCV 83 MCH 28.0 MCHC 33.7 RDW 13.4 Plt Count 328 Sodium 139.5 Potassium 3.2 L Chloride 109 H Carbon Dioxide 25 Anion Gap 6 BUN 9 Creatinine 0.82 Est GFR ( Amer) > 60 Est GFR (Non-Af Amer) > 60 Glucose 89 Calcium 8.4 09/08/18 09/08/18 09/08/18 16:04 16:04 23:54 Creatine Kinase 147 H 132 CK-MB (CK-2) 0.90 Troponin I 0.015 09/08/18 09/09/18 09/09/18 23:54 05:53 05:53 Creatine Kinase 140 H CK-MB (CK-2) 1.40 1.79 Troponin I 0.076 0.109 09/09/18 09/09/18 09/09/18 12:34 12:34 15:35 Creatine Kinase Cancelled 150 H CK-MB (CK-2) Cancelled Troponin I Cancelled 09/09/18 09/09/18 09/10/18 15:35 21:15 03:48 Creatine Kinase CK-MB (CK-2) 2.30 Troponin I 0.286 0.305 0.279 09/11/18 09/12/18 09/12/18 04:26 08:05 08:05 Creatine Kinase 205 H CK-MB (CK-2) 2.04 Troponin I 0.169 0.094 Impressions: Abdomen/Pelvis CT 09/08/18 23:19 IMPRESSION: Enteric tube in the stomach. Little change in the appearance of several mildly prominent fluid-filled loops of small bowel particularly in the right lower quadrant. Small bowel feces sign suggests chronic stasis. Partial or incomplete obstruction is not excluded. Trace of free fluid in the pelvis. Sigmoid diverticulosis. Evidence of prior granulomatous disease. TECHNICAL DOCUMENTATION: Quality ID # 436: Final reports with documentation of one or more dose reduction techniques (e.g., Automated exposure control, adjustment of the mA and/or kV according to patient size, use of iterative reconstruction technique) copyright 2010 [employer]- All Rights Reserved KUB X-Ray 09/08/18 23:19 IMPRESSION: Tip of the enteric tube likely in the body of the stomach on the second submitted image, as above copyright 2010 [employer]- All Rights Reserved Acute Abdomen Series 09/10/18 00:00 IMPRESSION: Findings compatible with small bowel obstruction with multiple persistent loops of dilated small throughout the abdomen measuring up to 3.9 cm. Cardiac Imaging Nuclear Medicine 09/10/18 00:00 IMPRESSION: Negative study Chest X-Ray 09/12/18 00:00 IMPRESSION: Findings are most consistent with vascular congestion with bilateral pleural effusions. Chest/Abdomen CTA 09/12/18 00:00 IMPRESSION: Small bilateral pleural effusions with bibasilar atelectasis. Underlying obstructive lung. Occluded left proximal subclavian artery No CTA evidence of thoracic aortic dissection or acute pulmonary emboli. Assessment & Plan - Diagnosis (1) Bowel obstruction Qualifiers: Intestinal obstruction type: obstruction due to adhesions Intestinal obstruction extent: complete Qualified Code(s): K56.52 - Intestinal adhesions [bands] with complete obstruction Is this a current diagnosis for this admission?: Yes - Plan Summary Plan Summary: 83-year-old female status post exploratory laparotomy for bowel obstruction. The patient reports that she is doing well today. She is ambulating the hallways upon my examination. The patient reports that she is tolerating a diet, and having bowel movements. The patient reports that she will be going to rehab tomorrow. The patient should follow-up with [facility] in 7 days. No lifting more than 10 pounds x 6 weeks after surgery. High protein diet. I will see the patient again on an as-needed basis. Please renotify with any questions or concerns.
[2018-09-16] MEDS: MAG HYDROX/AL HYDROX/SIMETH SUSP 30 ML UDCUP PO PRN (16:06)
--- NOTE | 2018-09-16 16:30 | PDOC PROGRESS REPORT ---
Subjective Progress Note for:: 09/16/18 Subjective:: This is 83 years old female patient with past medical history of hypertension, hyperlipidemia, diabetes mellitus, hypothyroidism, coronary artery disease and diastolic CHF presented with chief complaint of abdominal pain, nausea and vomiting. Her CT is of the abdomen reveals partial small bowel obstruction versus ileus. Patient failed to respond to conservative management. She had laparotomy and CHAYITO. Patient tolerated the procedure and her postop is isthmus. Patient is debilitated and deconditioned she would benefit there is a 30 days inpatient rehab. Reason For Visit: ILEUS ARF NAUSEA, VOMITING Physical Exam Vital Signs: Temp Pulse Resp BP Pulse Ox 98.3 F 75 14 122/47 L 100 09/16/18 11:54 09/16/18 14:00 09/16/18 11:54 09/16/18 11:54 09/16/18 11:54 Intake & Output 09/15/18 09/16/18 09/17/18 06:59 06:59 06:59 Intake Total 1650 2264 386 Output Total 425 Balance 1650 1839 386 Weight 71.2 kg 69.8 kg General appearance: PRESENT: no acute distress Head exam: PRESENT: atraumatic Eye exam: PRESENT: conjunctiva pink Respiratory exam: PRESENT: clear to auscultation maikel. ABSENT: rales, rhonchi, wheezes Cardiovascular exam: PRESENT: RRR. ABSENT: diastolic murmur, rubs, systolic mu rmur GI/Abdominal exam: PRESENT: normal bowel sounds Neurological exam: PRESENT: alert, awake, oriented to time, oriented to situation Results Laboratory Results: 09/16/18 05:45 09/16/18 05:45 09/16/18 09/16/18 05:45 05:45 WBC 12.2 H RBC 3.42 L Hgb 9.6 L Hct 28.4 L MCV 83 MCH 28.0 MCHC 33.7 RDW 13.4 Plt Count 328 Sodium 139.5 Potassium 3.2 L Chloride 109 H Carbon Dioxide 25 Anion Gap 6 BUN 9 Creatinine 0.82 Est GFR ( Amer) > 60 Est GFR (Non-Af Amer) > 60 Glucose 89 Calcium 8.4 09/08/18 09/08/18 09/08/18 16:04 16:04 23:54 Creatine Kinase 147 H 132 CK-MB (CK-2) 0.90 Troponin I 0.015 04/01/19 04/02/19 04/02/19 23:54 05:53 05:53 Creatine Kinase 140 H CK-MB (CK-2) 1.40 1.79 Troponin I 0.076 0.109 09/09/18 09/09/18 09/09/18 12:34 12:34 15:35 Creatine Kinase Cancelled 150 H CK-MB (CK-2) Cancelled Troponin I Cancelled 09/09/18 09/09/18 09/10/18 15:35 21:15 03:48 Creatine Kinase CK-MB (CK-2) 2.30 Troponin I 0.286 0.305 0.279 09/11/18 09/12/18 09/12/18 04:26 08:05 08:05 Creatine Kinase 205 H CK-MB (CK-2) 2.04 Troponin I 0.169 0.094 Impressions: Abdomen/Pelvis CT 09/08/18 23:19 IMPRESSION: Enteric tube in the stomach. Little change in the appearance of several mildly prominent fluid-filled loops of small bowel particularly in the right lower quadrant. Small bowel feces sign suggests chronic stasis. Partial or incomplete obstruction is not excluded. Trace of free fluid in the pelvis. Sigmoid diverticulosis. Evidence of prior granulomatous disease. TECHNICAL DOCUMENTATION: Quality ID # 436: Final reports with documentation of one or more dose reduction techniques (e.g., Automated exposure control, adjustment of the mA and/or kV according to patient size, use of iterative reconstruction technique) copyright 2010 [employer]- All Rights Reserved KUB X-Ray 09/08/18 23:19 IMPRESSION: Tip of the enteric tube likely in the body of the stomach on the second submitted image, as above copyright 2010 [employer]- All Rights Reserved Acute Abdomen Series 09/10/18 00:00 IMPRESSION: Findings compatible with small bowel obstruction with multiple persistent loops of dilated small throughout the abdomen measuring up to 3.9 cm. Cardiac Imaging Nuclear Medicine 09/10/18 00:00 IMPRESSION: Negative study Chest X-Ray 09/12/18 00:00 IMPRESSION: Findings are most consistent with vascular congestion with bilateral pleural effusions. Chest/Abdomen CTA 09/12/18 00:00 IMPRESSION: Small bilateral pleural effusions with bibasilar atelectasis. Underlying obstructive lung. Occluded left proximal subclavian artery No CTA evidence of thoracic aortic dissection or acute pulmonary emboli. Assessment and Plan - Diagnosis (1) Acute complete small bowel obstruction Is this a current diagnosis for this admission?: Yes Plan: Status post exploratory laparotomy and CHAYITO. Patient has had this most postoperative course. Due to debility and deconditioning patient will benefit from rehab. (2) Diastolic CHF Qualifiers: Heart failure chronicity: chronic Qualified Code(s): I50.32 - Chronic diastolic (congestive) heart failure Is this a current diagnosis for this admission?: Yes Plan: Compensated. (3) Hypertension Qualifiers: Hypertension type: essential hypertension Qualified Code(s): I10 - Essential (primary) hypertension Is this a current diagnosis for this admission?: Yes Plan: Continue current regimen. (4) Hyperlipidemia Qualifiers: Hyperlipidemia type: unspecified Qualified Code(s): E78.5 - Hyperlipidemia, unspecified Is this a current diagnosis for this admission?: Yes Plan: Continue current regimen. (5) Type 2 diabetes mellitus Is this a current diagnosis for this admission?: Yes Plan: Continue current regimen (6) Coronary artery disease Is this a current diagnosis for this admission?: Yes Plan: No anginal symptoms.
[2018-09-16] MEDS: ATORVASTATIN CALCIUM 20 MG TABLET PO SCH (21:48)
[2018-09-17] MEDS: ALBUTEROL SULFATE HFA (90 MCG/PUFF) 200 PUFF/8.5 GM MDI IH PRN ×2 (00:29→07:42)
[2018-09-17] MEDS: AMPICILLIN SODIUM/SULBACTAM NA 3 GM in NORMAL SALINE 100 ML IV SCH ×3 (00:58→13:07)
[2018-09-17] MEDS: LEVOTHYROXINE SODIUM 0.025 MG TABLET PO SCH (05:51)
[2018-09-17] MEDS: LEVOTHYROXINE SODIUM 0.1 MG TABLET PO SCH (05:51)
[2018-09-17 06:59] LABS: HEMATOCRIT 28.3 % (36.0-47.0); HEMOGLOBIN 9.5 g/dL (12.0-15.5); MEAN CORPUSCULAR HEMOGLOBIN 27.9 pg (27.0-33.4); MEAN CORPUSCULAR HGB CONC 33.4 g/dL (32.0-36.0); MEAN CORPUSCULAR VOLUME 83 fl (80-97); PLATELET COUNT 337 10^3/uL (150-450); RED CELL DISTRIBUTION WIDTH 13.8 % (11.5-14.0); WHITE BLOOD COUNT 13.2 10^3/uL (4.0-10.5)
[2018-09-17 07:09] LABS: ANION GAP 5 (5-19); BLOOD UREA NITROGEN 7 mg/dL (7-20); CALCIUM 8.6 mg/dL (8.4-10.2); CARBON DIOXIDE 23 mmol/L (22-30); CHLORIDE 111 mmol/L (98-107); GLUCOSE 87 mg/dL (75-110); SODIUM 138.9 mmol/L (137-145)
[2018-09-17 07:15] LABS: POTASSIUM 3.4 mmol/L (3.6-5.0)
[2018-09-17] MEDS: INSULIN LISPRO 100 UNIT/ML 3 ML VIAL SUBCUT SCH ×3 (07:29→15:25)
[2018-09-17 08:07] LABS: ABSOLUTE LYMPHOCYTES# (MANUAL) 3.7 10^3/uL (0.5-4.7); ABSOLUTE NEUTROPHILS# (MANUAL) 8.8 10^3/uL (1.7-8.2); BASOPHILS % (MANUAL) 0 % (0-2); EOSINOPHILS % (MANUAL) 5 % (0-6); LYMPHOCYTES % (MANUAL) 28 % (13-45); MONOCYTES % (MANUAL) 0 % (3-13); SEGMENTED NEUTROPHILS % (MAN) 67 % (42-78); TOTAL CELLS COUNTED 100; TOXIC GRANULATION SLIGHT
[2018-09-17 08:08] LABS: PLATELET COMMENT ADEQUATE; RBC MORPHOLOGY COMMENT NORMO-CYTIC/CHROMIC
[2018-09-17] MEDS: CLOPIDOGREL BISULFATE 75 MG TABLET PO SCH (09:36)
[2018-09-17] MEDS: CARVEDILOL 6.25 MG TABLET PO SCH (09:36)
[2018-09-17] MEDS: FAMOTIDINE 20 MG TABLET PO SCH (09:36)
[2018-09-17] MEDS: CITALOPRAM HYDROBROMIDE 20 MG TABLET PO SCH (09:36)
[2018-09-17] MEDS: LISINOPRIL 10 MG TABLET PO SCH (09:36)
[2018-09-17] MEDS: FUROSEMIDE 40 MG TABLET PO SCH (09:36)
--- NOTE | 2018-09-17 10:29 | PDOC TRANSFER SUMMARY ---
General - Admit/Disc Date/PCP Admission Date/Primary Care Provider: 09/08/18 23:49 ADENIKE HERBERT PA-C Discharge Date: 09/17/18 - Discharge Diagnosis (1) Bowel obstruction Is this a current diagnosis for this admission?: Yes Summary: s/p ex-lap with lysis of adhesions, advanced to a soft diet (2) Hypertension Is this a current diagnosis for this admission?: Yes Summary: managed with home meds (3) Pulmonary hypertension Is this a current diagnosis for this admission?: Yes Summary: not exacerbated, euvolemic, managed with home meds - Additional Information Resuscitation Status: Full Code Discharge Diet: Cardiac, Diabetic Discharge Activity: Supervised Activity, Other - no lifting anything over 10 lbs x 6 weeks Prescriptions: Amoxicillin 1 tab PO TID #10 tab Home Medications: Atorvastatin Calcium [Lipitor 20 mg Tablet] 20 mg PO QHS 09/09/18 Carvedilol [Coreg 6.25 mg Tablet] 6.25 mg PO Q12 09/09/18 Cholecalciferol (Vitamin D3) [Vitamin D3 2000 unit Tablet] 2,000 unit PO DAILY 09/09/18 Citalopram Hydrobromide [Celexa 20 mg Tablet] 20 mg PO DAILY 09/09/18 Clopidogrel Bisulfate [Plavix 75 mg Tablet] 75 mg PO DAILY 09/09/18 Docusate Sodium [Colace 100 mg Capsule] 100 mg PO BID 09/09/18 Fenofibrate Nanocrystallized [Tricor 48 mg Tablet] 48 mg PO DAILY 09/09/18 Ferrous Sulfate [Feosol 325 mg Tablet] 325 mg PO DAILY 09/09/18 Furosemide [Lasix 40 mg Tablet] 40 mg PO DAILY 09/09/18 Levothyroxine Sodium [Synthroid] 125 mcg PO Q6AM 09/09/18 Lisinopril [Prinivil 10 mg Tablet] 10 mg PO DAILY 09/09/18 Metformin HCl [Glucophage 500 mg Tablet] 500 mg PO BID 09/09/18 Nitroglycerin [Nitrostat 0.4 mg (1/150 Gr) Tabs 25/Bottle] 0.4 mg SL Q5MP PRN 09/09/18 Pantoprazole Sodium [Protonix [address] Tablet] 20 mg PO DAILY 09/09/18 Potassium Chloride [Klor-Con 10 Meq Capsule ER] 10 meq PO DAILY 09/09/18 Amoxicillin 1 tab PO TID #10 tab 09/17/18 History of Present Illness Admission Date/PCP: 09/08/18 23:49 ADENIKE HERBERT PA-C History of Present Illness: SANDRA SPRINGER is a 83 year old female with a past medical history of diabetes, hypertension, dyslipidemia, hypothyroidism, coronary artery disease, diastolic heart failure, iron deficiency anemia, erosive gastritis, GERD and recurrent constipation. Patient presents with 4 days of abdominal pain developing nausea and vomiting of gastric content without blood, with constipation. Labs reveal mild acute renal failure, CT reveals partial small bowel obstruction versus ileus. She denies chest pain, recent viral prodrome or change in medications. NG tube is placed resulting in minimal aspirate and blood-tinged with suspicion of nasal trauma during NG placement. Hospital Course Hospital Course: She ultimately underwent ex-lap w/ lysis of adhesions. Had an expected post-op ileus that gradually resolved. Now tolerating a soft diet. Also was found to have a UTI, is finishing a course of amoxicillin. Had NHUNG that resolved with IV fluids, enabling resumption of her metformin. She will follow up at [facility] in 1 week post-discharge. No lifting over 10 pounds for 6 weeks post- op. Her labs and exam were reassuring and she was d/c'd to SNF in good condition. Physical Exam Vital Signs: Temp Pulse Resp BP Pulse Ox 98.3 F 82 16 137/61 H 96 09/17/18 07:21 09/17/18 07:21 09/17/18 07:21 09/17/18 07:21 09/17/18 07:21 Intake & Output 09/16/18 09/17/18 09/18/18 06:59 06:59 06:59 Intake Total 2264 1240 Output Total 425 Balance 1839 1240 Weight 69.8 kg 68 kg General appearance: PRESENT: no acute distress, cooperative, disheveled Respiratory exam: PRESENT: clear to auscultation maikel, symmetrical, unlabored. A BSENT: accessory muscle use, crackles, prolonged expiratory phas, rhonchi, tachypnea, wheezes Cardiovascular exam: PRESENT: RRR, +S1, +S2 Pulses: PRESENT: normal carotid pulses Vascular exam: PRESENT: normal capillary refill GI/Abdominal exam: PRESENT: normal bowel sounds, soft, tenderness - appropriate, other - midline incision was stapled, well-approximated, no erythema or exudates. ABSENT: distended, guarding, rebound Extremities exam: ABSENT: clubbing, pedal edema Musculoskeletal exam: PRESENT: normal inspection. ABSENT: deformity Neurological exam: PRESENT: alert, awake, oriented to person, oriented to place, oriented to time, oriented to situation Psychiatric exam: PRESENT: appropriate affect, normal mood Skin exam: PRESENT: dry, warm, other - abdomen as noted above Results Laboratory Results: 09/17/18 05:40 09/17/18 05:40 09/17/18 09/17/18 05:40 05:40 WBC 13.2 H RBC 3.40 L Hgb 9.5 L Hct 28.3 L MCV 83 MCH 27.9 MCHC 33.4 RDW 13.8 Plt Count 337 Seg Neutrophils % Not Reportable Lymphocytes % Not Reportable Monocytes % Not Reportable Eosinophils % Not Reportable Basophils % Not Reportable Absolute Neutrophils Not Reportable Absolute Lymphocytes Not Reportable Absolute Monocytes Not Reportable Absolute Eosinophils Not Reportable Absolute Basophils Not Reportable Sodium 138.9 Potassium 3.4 L Chloride 111 H Carbon Dioxide 23 Anion Gap 5 BUN 7 Creatinine 0.83 Est GFR ( Amer) > 60 Est GFR (Non-Af Amer) > 60 Glucose 87 Calcium 8.6 09/08/18 09/08/18 09/08/18 16:04 16:04 23:54 Creatine Kinase 147 H 132 CK-MB (CK-2) 0.90 Troponin I 0.015 09/08/18 09/09/18 09/09/18 23:54 05:53 05:53 Creatine Kinase 140 H CK-MB (CK-2) 1.40 1.79 Troponin I 0.076 0.109 09/09/18 09/09/18 09/09/18 12:34 12:34 15:35 Creatine Kinase Cancelled 150 H CK-MB (CK-2) Cancelled Troponin I Cancelled 09/09/18 09/09/18 09/10/18 15:35 21:15 03:48 Creatine Kinase CK-MB (CK-2) 2.30 Troponin I 0.286 0.305 0.279 09/11/18 09/12/18 09/12/18 04:26 08:05 08:05 Creatine Kinase 205 H CK-MB (CK-2) 2.04 Troponin I 0.169 0.094 Impressions: Abdomen/Pelvis CT 09/08/18 23:19 IMPRESSION: Enteric tube in the stomach. Little change in the appearance of several mildly prominent fluid-filled loops of small bowel particularly in the right lower quadrant. Small bowel feces sign suggests chronic stasis. Partial or incomplete obstruction is not excluded. Trace of free fluid in the pelvis. Sigmoid diverticulosis. Evidence of prior granulomatous disease. TECHNICAL DOCUMENTATION: Quality ID # 436: Final reports with documentation of one or more dose reduction techniques (e.g., Automated exposure control, adjustment of the mA and/or kV according to patient size, use of iterative reconstruction technique) copyright 2010 [employer]- All Rights Reserved KUB X-Ray 09/08/18 23:19 IMPRESSION: Tip of the enteric tube likely in the body of the stomach on the second submitted image, as above copyright 2010 [employer]- All Rights Reserved Acute Abdomen Series 09/10/18 00:00 IMPRESSION: Findings compatible with small bowel obstruction with multiple persistent loops of dilated small throughout the abdomen measuring up to 3.9 cm. Cardiac Imaging Nuclear Medicine 09/10/18 00:00 IMPRESSION: Negative study Chest X-Ray 09/12/18 00:00 IMPRESSION: Findings are most consistent with vascular congestion with bilateral pleural effusions. Chest/Abdomen CTA 09/12/18 00:00 IMPRESSION: Small bilateral pleural effusions with bibasilar atelectasis. Underlying obstructive lung. Occluded left proximal subclavian artery No CTA evidence of thoracic aortic dissection or acute pulmonary emboli. Transfer Plan - Time Spent with Patient Time spent with patient: Greater than 30 Minutes Qualifiers - * PATIENT BEING DISCHARGED WITH ANY OF THE FOLLOWING DIAGNOSIS: No Plan Time Spent: Greater than 30 Minutes
[2018-09-17 12:45] VITALS: BP 144/63
[2018-09-17] MEDS ORDERED: IPRATROPIUM/ALBUTEROL 0.5-2.5 MG/3 ML AMPUL NEB ONE (13:00)
== END 2018-09-17 16:30 | DRG 336 ==
LOC: ER 14:33 → EH 23:49 → 4W 09-09 02:00 → 3S 09-10 21:22 → 4N 09-17 00:35
PROVIDERS: ADMIT Internal Medicine; ATTEND Internal Medicine
PROC: 02HV33Z Insertion of Infusion Device into Superior Vena Cava, Percutaneous Approach (ICD-10-PCS; 2018-09-10)
PROC: 0DN80ZZ Release Small Intestine, Open Approach (ICD-10-PCS; principal; 2018-09-10 17:45)
DX: K56.52 Intestinal adhesions [bands] with complete obstruction (principal); I50.30 Unspecified diastolic (congestive) heart failure; I13.0 Hypertensive heart and chronic kidney disease with heart failure and stage 1 through stage 4 chronic kidney disease, or unspecified chronic kidney disease; N17.9 Acute kidney failure, unspecified; N39.0 Urinary tract infection, site not specified; E11.22 Type 2 diabetes mellitus with diabetic chronic kidney disease; I27.20 Pulmonary hypertension, unspecified; N18.3 Chronic kidney disease, stage 3 (moderate); E78.00 Pure hypercholesterolemia, unspecified; E11.21 Type 2 diabetes mellitus with diabetic nephropathy; I25.10 Atherosclerotic heart disease of native coronary artery without angina pectoris; J44.9 Chronic obstructive pulmonary disease, unspecified; E86.0 Dehydration; E03.9 Hypothyroidism, unspecified; D72.829 Elevated white blood cell count, unspecified; E78.5 Hyperlipidemia, unspecified; D50.9 Iron deficiency anemia, unspecified; K21.9 Gastro-esophageal reflux disease without esophagitis; I73.9 Peripheral vascular disease, unspecified; B95.1 Streptococcus, group B, as the cause of diseases classified elsewhere; B96.4 Proteus (mirabilis) (morganii) as the cause of diseases classified elsewhere; R63.4 Abnormal weight loss; Z95.5 Presence of coronary angioplasty implant and graft; Z79.01 Long term (current) use of anticoagulants; Z79.84 Long term (current) use of oral hypoglycemic drugs; Z79.82 Long term (current) use of aspirin; Z79.899 Other long term (current) drug therapy
CPT/HCPCS: 00790; 36415; 36600; 71045; 71046; 71275; 74018; 74022; 74176; 74177; 78466; 80048; 80053; 80076; 81001; 82550; 82553; 82803; 82962; 83605; 83690; 83735; 84100; 84484; 85025; 85027; 85610; 85730; 87070; 87075; 87086; 87088; 87186; 87205; 88304; 93005; 93010; 93306; 94640; 94799; 96361; 96374; 96376; 99285; A9538; C1751; J0131; J0295; J0330; J0694; J1100; J1642; J1885; J1940; J2060; J2250; J2270; J2370; J2405; J2704; J3010; J3480; J3490; J7030; J7620; Q9969; S0028

== ENCOUNTER 2019-03-25 19:35 | Inpatient (IN) | payer MEDICARE, MEDICAID ==
[2019-03-25 20:34] LABS: HEMATOCRIT 37.3 % (36.0-47.0); HEMOGLOBIN 12.3 g/dL (12.0-15.5); MEAN CORPUSCULAR HEMOGLOBIN 27.5 pg (27.0-33.4); MEAN CORPUSCULAR HGB CONC 32.9 g/dL (32.0-36.0); MEAN CORPUSCULAR VOLUME 84 fl (80-97); PLATELET COUNT 278 10^3/uL (150-450); RED BLOOD COUNT 4.46 10^6/uL (3.72-5.28); RED CELL DISTRIBUTION WIDTH 13.5 % (11.5-14.0); VENOUS BLOOD BASE EXCESS -3.5 mmol/L; VENOUS BLOOD HCO3 21.1 mmol/L (20-32); VENOUS BLOOD PCO2 36.8 mmHg (35-63); VENOUS BLOOD PH 7.38 (7.30-7.42); WHITE BLOOD COUNT 21.2 10^3/uL (4.0-10.5)
[2019-03-25 20:40] LABS: CREATINE KINASE 388 U/L (30-135)
--- NOTE | 2019-03-25 20:50 | RADIOLOGY REPORT (SQ) ---
EXAM DESCRIPTION: [facility]: XR CHEST 1 VIEW CLINICAL HISTORY: 83 years Female, hypoxic, resp rate 40 COMPARISON: 09/10/2018 FINDINGS: There is a alveolar/interstitial infiltrate in the right lower lung field. No other focal infiltrates. No pneumothorax or pleural effusion. Aortic calcifications are again noted. Heart size is normal. Bony structures are unremarkable. IMPRESSION: 1. Infiltrate in the right lower lung field, likely a right lower lobe pneumonia.
--- NOTE | 2019-03-25 20:51 | ER Document Report ---
Entered by IMER NICHOLE SCRIBE 03/25/192022 Acting as scribe for:EARL SIMON MD ED General - General Stated Complaint: POSS OVERDOSE Time Seen by Provider: 03/25/19 20:05 Primary Care Provider: ADENIKE HERBERT PA-C [Primary Care Provider] - Follow up as needed Mode of Arrival: Ambulatory Information source: Patient Notes: Patient is an 83-year-old female who presents to the emergency department today with complaints of possible accidental overdose. The patient's Saturday and medications are gone and today is only Saturday. Patient was saturat ing at 86% on room air on arrival here, jameson to 94% on 2 L via nasal cannula. Patient reports she just feels bad all over. Daughter at bedside reports that patient has been "hot and then cold". History is limited. TRAVEL OUTSIDE OF THE [place] IN LAST 30 DAYS: No - Related Data Allergies/Adverse Reactions: propoxyphene napsylate [From Darvocet-N 100] Allergy (Unknown, Verified 09/08/18 14:36) oxycodone HCl [From Percocet] Allergy (Verified 09/08/18 14:36) Past Medical History - General Information source: Patient - Social History Smoking Status: Never Smoker Cigarette use (# per day): No Frequency of alcohol use: None Drug Abuse: None Lives with: Family Family History: Reviewed & Not Pertinent, COPD, DM - Past Medical History Cardiac Medical History: Reports: Hx Coronary Artery Disease, Hx Hypercholesterolemia, Hx Hypertension Pulmonary Medical History: Reports: Hx Bronchitis Endocrine Medical History: Reports: Hx Diabetes Mellitus Type 2, Hx Hypothyroidism Malignancy Medical History: Reports: Hx Skin Cancer GI Medical History: Reports: Hx Gastroesophageal Reflux Disease Musculoskeletal Medical History: Reports Hx Arthritis Past Surgical History: Reports: Hx Cardiac Catheterization - stent x1, Hx Hysterectomy, Hx Orthopedic Surgery - right hip replacement - Immunizations Immunizations up to date: Yes Hx Diphtheria, Pertussis, Tetanus Vaccination: No Hx Pneumococcal Vaccination: 06/10/08 Review of Systems - Review of Systems Constitutional: See HPI, Other - possible accidental overdose, pain all over, "feels hot then cold" EENT: No symptoms reported Cardiovascular: No symptoms reported Respiratory: No symptoms reported Gastrointestinal: No symptoms reported Genitourinary: No symptoms reported Female Genitourinary: No symptoms reported Musculoskeletal: No symptoms reported Skin: No symptoms reported Hematologic/Lymphatic: No symptoms reported Neurological/Psychological: No symptoms reported -: Yes All other systems reviewed and negative Physical Exam - Vital signs Vitals: Temp Resp 98.7 F 45 H 03/25/19 19:50 03/25/19 19:50 - Notes Notes: Physical Exam: General: Alert. HEENT: Normocephalic. Atraumatic. PERRL. Extraocular movements intact. Oropharynx clear. Neck: Supple. Non-tender. Respiratory: Tachypnea with a respiratory rate of 40. Clear and equal breath sounds bilaterally. Cardiovascular: Tachycardic, regular rhythm. Weak radial pulse. Abdominal: Normal Inspection. Non-tender. No distension. Normal Bowel Sounds. Back: No gross abnormalities. Extremities: Moves all four extremities. Upper extremities: Normal inspection. Normal ROM. Lower extremities: Normal inspection. No edema. Normal ROM. Neurological: Normal cognition. AAOx4. Normal speech. Psychological: Normal affect. Normal Mood. Skin: Hot to the touch. Dry. Normal color. Course - Re-evaluation Re-evalutation: 03/25/19 20:58 The patient is febrile, tachycardic, tachypneic, hypoxic, with leukocytosis and bandemia.. Chest x-ray shows right lower lobe pneumonia. She did receive 500 mL's normal saline from EMS. Her blood pressure is quite high. She does have a history of congestive heart failure, so we are going to slowly hydrate the benji ent, and not use the recommended sepsis fluid overload. - Vital Signs Vital signs: Temp Pulse Resp BP Pulse Ox 102.1 F H 46 H 173/71 H 93 03/25/19 20:56 03/25/19 20:01 03/25/19 20:01 03/25/19 20:01 - Laboratory Result Diagrams: 03/25/19 20:00 03/25/19 20:00 Laboratory results interpreted by me: 03/25/19 03/25/19 03/25/19 20:00 20:00 20:00 WBC 21.2 H Seg Neuts % (Manual) 84 H Band Neutrophils % 7 H Lymphocytes % (Manual) 2 L Abs Neuts (Manual) 19.3 H Abs Lymphs (Manual) 0.4 L Sodium 135.3 L Potassium 3.2 L Carbon Dioxide 19 L BUN 21 H Creatinine 1.35 H Est GFR ( Amer) 45 L Est GFR (MDRD) Non-Af 38 L Glucose 157 H Creatine Kinase 388 H NT-Pro-B Natriuret Pep 8540 H Urine Protein Urine Glucose (UA) Urine Ketones Urine Blood 03/25/19 20:53 WBC Seg Neuts % (Manual) Band Neutrophils % Lymphocytes % (Manual) Abs Neuts (Manual) Abs Lymphs (Manual) Sodium Potassium Carbon Dioxide BUN Creatinine Est GFR ( Amer) Est GFR (MDRD) Non-Af Glucose Creatine Kinase NT-Pro-B Natriuret Pep Urine Protein 100 H Urine Glucose (UA) 50 H Urine Ketones TRACE H Urine Blood SMALL H - Diagnostic Test Radiology reviewed: Image reviewed, Reports reviewed - Chest x-ray shows right lower lobe infiltrate. - EKG Interpretation by Me EKG shows normal: Sinus rhythm, Perkins, Intervals, QRS Complexes, ST-T Waves Rate: Normal - 98 Rhythm: NSR Perkins/QRS: LBBB P Waves: LAE When compared to previous EKG there are: Changes noted - Consults Dr. Richard Time consulted: 21:55 Consulted provider: will come to ER Critical Care Note - Critical Care Note Total time excluding time spent on procedures (mins): 40 Discharge - Discharge Clinical Impression: Hypoxia, Hypokalemia, Dehydration Pneumonia Qualifiers: Pneumonia type: due to unspecified organism Laterality: right Lung location: lower lobe of lung Qualified Code(s): J18.1 - Lobar pneumonia, unspecified organism Fever Qualifiers: Fever type: unspecified Qualified Code(s): R50.9 - Fever, unspecified Condition: Stable Disposition: ADMITTED INPATIENT Admitting Provider: Hilary (Hospitalist) Unit Admitted: Telemetry Referrals: ADENIKE HERBERT PA-C [Primary Care Provider] - Follow up as needed Scribe Attestation: 03/25/19 20:57 I personally performed the services described in the documentation, reviewed and edited the documentation which was dictated to the scribe in my presence, and it accurately records my words and actions. I personally performed the services described in the documentation, reviewed and edited the documentation which was dictated to the scribe in my presence, and it accurately records my words and actions.
[2019-03-25] MEDS ORDERED: ACETAMINOPHEN 325 MG TABLET PO ONE (20:52)
[2019-03-25] MEDS ORDERED: LEVOFLOXACIN 750 MG/D5W RTU 750 MG/150 ML RTUPB IV ONE (20:53)
[2019-03-25 20:55] LABS: ABSOLUTE LYMPHOCYTES# (MANUAL) 0.4 10^3/uL (0.5-4.7); ABSOLUTE MONOCYTES # (MANUAL) 1.3 10^3/uL (0.1-1.4); BAND NEUTROPHILS % (MANUAL) 7 % (3-5); BASOPHILS % (MANUAL) 1 % (0-2); EOSINOPHILS % (MANUAL) 0 % (0-6); LYMPHOCYTES % (MANUAL) 2 % (13-45); MONOCYTES % (MANUAL) 6 % (3-13); PLATELET COMMENT ADEQUATE; RBC MORPHOLOGY COMMENT NORMO-CYTIC/CHROMIC; SEGMENTED NEUTROPHILS % (MAN) 84 % (42-78); TOTAL CELLS COUNTED 100
[2019-03-25 20:59] LABS: ALBUMIN 3.7 g/dL (3.5-5.0); ALKALINE PHOSPHATASE 45 U/L (38-126); ANION GAP 11 (5-19); ASPARTATE AMINO TRANSFERASE 36 U/L (14-36); BILIRUBIN,DIRECT 0.3 mg/dL (0.0-0.4); BILIRUBIN,TOTAL 0.7 mg/dL (0.2-1.3); BLOOD UREA NITROGEN 21 mg/dL (7-20); CALCIUM 8.6 mg/dL (8.4-10.2); CARBON DIOXIDE 19 mmol/L (22-30); CHLORIDE 105 mmol/L (98-107); GLUCOSE 157 mg/dL (75-110); POTASSIUM 3.2 mmol/L (3.6-5.0); TOTAL PROTEIN 6.6 g/dL (6.3-8.2)
[2019-03-25] MEDS ORDERED: RINGERS SOLUTION,LACTATED 500 ML IV ONE (21:09)
[2019-03-25 21:11] LABS: APPEARANCE,URINE CLEAR; BILIRUBIN,URINE NEGATIVE (NEGATIVE); COLOR,URINE YELLOW; GLUCOSE, URINE 50 mg/dL (NEGATIVE); KETONES,URINE TRACE mg/dL (NEGATIVE); LEUKOCYTE ESTERASE,URINE NEGATIVE (NEGATIVE); NITRITE,URINE NEGATIVE (NEGATIVE); PROTEIN,URINE 100 mg/dL (NEGATIVE); URINE SPECIFIC GRAVITY 1.011; UROBILINOGEN,URINE NEGATIVE mg/dL (<2.0)
[2019-03-25 21:15] LABS: TROPONIN I 0.122 ng/mL
[2019-03-25] MEDS ORDERED: POTASSIUM CHLORIDE 10 MEQ CAPSULE.ER PO ONE (21:51)
--- NOTE | 2019-03-25 22:58 | EKG REPORT ---
SEVERITY:- ABNORMAL ECG - SINUS RHYTHM PROBABLE LEFT ATRIAL ABNORMALITY LEFT BUNDLE BRANCH BLOCK : Confirmed by: Ad Wallace 25-Mar-2019 22:57:42
[2019-03-26] MEDS: ACETAMINOPHEN 325 MG TABLET PO PRN ×3 (01:19→22:52)
[2019-03-26] MEDS ORDERED: GUAIFENESIN SYRP 200 MG/10 ML UDC PO PRN (01:53)
[2019-03-26] MEDS ORDERED: LEVALBUTEROL HCL NEB 0.63 MG/3 ML AMPUL NEB PRN (01:53)
[2019-03-26] MEDS ORDERED: RINGERS SOLUTION,LACTATED 1,000 ML IV PRN (01:53)
[2019-03-26] MEDS ORDERED: LABETALOL HCL INJ 20 MG/4 ML DISP.SYRIN IV PRN (01:59)
[2019-03-26] MEDS ORDERED: MAG HYDROX/AL HYDROX/SIMETH SUSP 30 ML UDCUP PO PRN (01:59)
[2019-03-26] MEDS ORDERED: INSULIN REG, HUMAN 100 UNIT/ML 3 ML VIAL (PYX) SUBCUT PRN (01:59)
[2019-03-26] MEDS ORDERED: MAGNESIUM HYDROXIDE SUSP 30 ML UDCUP PO PRN (01:59)
[2019-03-26] MEDS ORDERED: GLUCAGON,HUMAN RECOMB 1 MG INJ IM PRN (02:00)
[2019-03-26] MEDS ORDERED: DEXTROSE 50%-WATER 25 GM/50 ML DISP.SYRIN IV PRN ×2 (02:00)
[2019-03-26] MEDS ORDERED: DEXTROSE 40% GEL 15 GM TUBE PO PRN ×2 (02:00)
[2019-03-26] MEDS ORDERED: AZITHROMYCIN 500 MG in DEXTROSE 5%-WATER 250 ML IV ONE (03:00)
[2019-03-26] MEDS ORDERED: CEFTRIAXONE 1 GM/D5W RTU 1 GM/50 ML RTUPB IV ONE (03:00)
[2019-03-26 03:10] LABS: FREE T3 2.05 pg/mL (2.77-5.27); FREE T4 (FREE THYROXINE) 1.24 ng/dL (0.78-2.19)
[2019-03-26] MEDS ORDERED: AZITHROMYCIN INJ 500 MG VIAL IV ONE (03:14)
[2019-03-26] MEDS: HEPARIN SOD (PORCINE) 5,000 UNIT/ML 1 ML VIAL SUBCUT SCH ×3 (05:50→22:53)
--- NOTE | 2019-03-26 06:41 | PDOC H&P ---
History of Present Illness Admission Date/PCP: 03/25/19 22:07 ADENIKE HERBERT PA-C Patient complains of: Lethargy History of Present Illness: SANDRA SPRINGER is a 83 year old female who presented to the emergency room with acute lethargy. Patient and her family admit increased lethargy that has developed since the morning of admission. Family members felt that the patient may have taken too much medication but she denied that possibility. She insists that she has felt "sleepy" all day and complains of generalized malaise. She denies other associated or accompanying signs and symptoms. She denies prior similar episodes and has not identified any aggravating or ameliorating factors for her lethargy. In the emergency room the patient was initially hypoxic and required nasal cannula oxygen to improve her oxygen saturation to 94%. She was given Tylenol for a fever of 102 F and dramatically improved in symptomology. A chest x-ray revealed a right lower lung pneumonia and antibiotic therapy was initiated after blood cultures were obtained. Patient was subsequently admitted to hospital for further evaluation treatment. Past Medical History Cardiac Medical History: Reports: Congestive Heart Failure, Coronary Artery Disease, Hyperlipidema, Hypertension Denies: Atrial Fibrillation Pulmonary Medical History: Reports: Bronchitis Denies: Asthma, Chronic Obstructive Pulmonary Disease (COPD), Pneumonia EENT Medical History: Denies: Cataracts, Ears - Hearing aids Neurological Medical History: Denies: Hemorrhagic CVA, Ischemic CVA, Seizures Endocrine Medical History: Reports: Diabetes Mellitus Type 2, Hypothyroidism Denies: Diabetes Mellitus Type 1, Hyperthyroidism, Obesity Renal/ Medical History: Denies: Chronic Kidney Disease, Nephrolithiasis Malignancy Medical History: Reports: None, Skin Cancer GI Medical History: Reports: Gastroesophageal Reflux Disease Denies: Cirrhosis, Hepatitis Musculoskeltal Medical History: Reports: Arthritis Denies: Gout Skin Medical History: Denies: Eczema, Psoriasis Psychiatric Medical History: Denies: Alcohol Dependency, Depression, Substance Abuse, Tobacco Dependency Traumatic Medical History: Reports: None Hematology: Reports: Anemia Denies: Bleeding Tendencies Infectious Medical History: Reports: None Past Surgical History Past Surgical History: Reports: Cardiac Catheterization, Coronary Stent - X 1, Hysterectomy, Orthopedic Surgery - right hip replacement Social History Information Source: Patient Lives with: Family Smoking Status: Never Smoker Electronic Cigarette use?: No Frequency of Alcohol Use: None Hx Recreational Drug Use: No Drugs: None Hx Prescription Drug Abuse: No - Advance Directive Resuscitation Status: Full Code Surrogate healthcare decision maker:: Curt Singh Family History Family History: COPD, DM Parental Family History Reviewed: Yes Children Family History Reviewed: No Sibling(s) Family History Reviewed.: Yes Medication/Allergy Home Medications: Atorvastatin Calcium [Lipitor 20 mg Tablet] 20 mg PO QHS 09/09/18 Carvedilol [Coreg 6.25 mg Tablet] 6.25 mg PO Q12 09/09/18 Cholecalciferol (Vitamin D3) [Vitamin D3 2000 unit Tablet] 2,000 unit PO DAILY 09/09/18 Citalopram Hydrobromide [Celexa 20 mg Tablet] 20 mg PO DAILY 09/09/18 Clopidogrel Bisulfate [Plavix 75 mg Tablet] 75 mg PO DAILY 09/09/18 Fenofibrate Nanocrystallized [Tricor 48 mg Tablet] 48 mg PO DAILY 09/09/18 Ferrous Sulfate [Feosol 325 mg Tablet] 325 mg PO DAILY 09/09/18 Furosemide [Lasix 40 mg Tablet] 40 mg PO DAILY 09/09/18 Levothyroxine Sodium [Synthroid] 125 mcg PO Q6AM 09/09/18 Lisinopril [Prinivil 10 mg Tablet] 10 mg PO DAILY 09/09/18 Pantoprazole Sodium [Protonix [address] Tablet] 20 mg PO DAILY 09/09/18 Potassium Chloride [Klor-Con 10 Meq Capsule ER] 10 meq PO DAILY 09/09/18 Lisinopril [Prinivil 10 mg Tablet] 03/25/19 Allergies/Adverse Reactions: propoxyphene napsylate [From Darvocet-N 100] Allergy (Unknown, Verified 09/08/18 14:36) oxycodone HCl [From Percocet] Allergy (Verified 09/08/18 14:36) Review of Systems Constitutional: PRESENT: as per HPI, other - Lethargy and generalized malaise. ABSENT: chills, fever(s) Eyes: ABSENT: visual disturbances, other Ears: ABSENT: hearing changes, other Nose, Mouth, and Throat: ABSENT: mouth pain, sore throat Cardiovascular: ABSENT: chest pain, palpitations Respiratory: ABSENT: cough, dyspnea Gastrointestinal: ABSENT: abdominal pain, constipation, diarrhea, nausea, vomiting Genitourinary: ABSENT: dysuria, hematuria Musculoskeletal: ABSENT: back pain, joint swelling, muscle weakness Integumentary: ABSENT: pruritus, rash Neurological: PRESENT: other - Lethargy. ABSENT: confusion, convulsions, focal weakness, memory loss, syncope Psychiatric: ABSENT: anxiety, depression Endocrine: ABSENT: cold intolerance, heat intolerance Hematologic/Lymphatic: ABSENT: easy bleeding, easy bruising Allergic/Immunologic: ABSENT: seasonal rhinorrhea Physical Exam Vital Signs: Temp Pulse Resp BP Pulse Ox 102.1 F H 21 H 130/56 H 95 03/25/19 20:56 03/25/19 22:01 03/25/19 22:01 03/25/19 22:01 Intake & Output 03/23/19 03/24/19 03/25/19 23:59 23:59 23:59 Intake Total 650 Balance 650 Weight 65.4 kg General appearance: PRESENT: no acute distress, cooperative Head exam: PRESENT: atraumatic, normocephalic Eye exam: PRESENT: conjunctiva pink. ABSENT: conjunctival injection, scleral icterus Ear exam: PRESENT: normal external ear exam. ABSENT: bleeding, drainage Mouth exam: PRESENT: dry mucosa, neck supple Neck exam: ABSENT: thyromegaly, tracheal deviation Respiratory exam: PRESENT: rales - Coarse rales present in the right lower lung joshi, symmetrical, tachypnea Cardiovascular exam: PRESENT: RRR, tachycardia. ABSENT: clicks, gallop, rubs Pulses: PRESENT: normal radial pulses, normal dorsalis pedis pul Vascular exam: PRESENT: normal capillary refill. ABSENT: pallor GI/Abdominal exam: PRESENT: normal bowel sounds, soft Rectal exam: PRESENT: deferred Extremities exam: ABSENT: joint swelling, pedal edema Musculoskeletal exam: ABSENT: deformity, dislocation Neurological exam: PRESENT: alert, oriented to person, oriented to place, oriented to time, oriented to situation, CN II-XII grossly intact. ABSENT: motor sensory deficit Psychiatric exam: PRESENT: appropriate affect, normal mood Skin exam: PRESENT: dry, intact, warm. ABSENT: jaundice, rash, urticaria Results Laboratory Results: 03/25/19 20:00 03/25/19 20:00 03/25/19 03/25/19 03/25/19 20:00 20:00 20:00 WBC 21.2 H RBC 4.46 Hgb 12.3 Hct 37.3 MCV 84 MCH 27.5 MCHC 32.9 RDW 13.5 Plt Count 278 Seg Neutrophils % Not Reportable VBG pH 7.38 VBG pCO2 36.8 VBG HCO3 21.1 VBG Base Excess -3.5 Sodium 135.3 L Potassium 3.2 L Chloride 105 Carbon Dioxide 19 L Anion Gap 11 BUN 21 H Creatinine 1.35 H Est GFR ( Amer) 45 L Glucose 157 H Lactic Acid Calcium 8.6 Magnesium 1.6 Total Bilirubin 0.7 AST 36 Alkaline Phosphatase 45 Total Protein 6.6 Albumin 3.7 Urine Color Urine Appearance Urine pH Ur Specific [place] Urine Protein Urine Glucose (UA) Urine Ketones Urine Blood Urine Nitrite Ur Leukocyte Esterase Urine WBC (Auto) Urine RBC (Auto) 03/25/19 03/25/19 20:53 21:24 WBC RBC Hgb Hct MCV MCH MCHC RDW Plt Count Seg Neutrophils % VBG pH VBG pCO2 VBG HCO3 VBG Base Excess Sodium Potassium Chloride Carbon Dioxide Anion Gap BUN Creatinine Est GFR ( Amer) Glucose Lactic Acid 1.1 Calcium Magnesium Total Bilirubin AST Alkaline Phosphatase Total Protein Albumin Urine Color YELLOW Urine Appearance CLEAR Urine pH 7.0 Ur Specific [place] 1.011 Urine Protein 100 H Urine Glucose (UA) 50 H Urine Ketones TRACE H Urine Blood SMALL H Urine Nitrite NEGATIVE Ur Leukocyte Esterase NEGATIVE Urine WBC (Auto) 0 Urine RBC (Auto) 4 03/25/19 03/25/19 20:00 20:00 Creatine Kinase 388 H Troponin I 0.122 NT-Pro-B Natriuret Pep 8540 H Impressions: Chest X-Ray 03/25/19 20:15 IMPRESSION: 1. Infiltrate in the right lower lung field, likely a right lower lobe pneumonia. Assessment and Plan - Diagnosis (1) Lethargy Is this a current diagnosis for this admission?: Yes Plan: Patient be treated with symptomatic and supportive cares utilizing IV fluid and mild antipyretic/analgesics such as Tylenol to control fever and malaise.. (2) Malaise Is this a current diagnosis for this admission?: Yes Plan: Patient be treated with symptomatic and supportive cares utilizing IV fluid and mild antipyretic/analgesics such as Tylenol to control fever and malaise. (3) Fever Qualifiers: Fever type: unspecified Qualified Code(s): R50.9 - Fever, unspecified Is this a current diagnosis for this admission?: Yes Plan: Patient be treated with symptomatic and supportive cares utilizing IV fluid and mild antipyretic/analgesics such as Tylenol to control fever and malaise. (4) Pneumonia Qualifiers: Pneumonia type: due to unspecified organism Laterality: right Lung location: lower lobe of lung Qualified Code(s): J18.1 - Lobar pneumonia, unspecified organism Is this a current diagnosis for this admission?: Yes Plan: Patient be treated with IV antibiotics utilizing ceftriaxone and azithromycin. Blood cultures are pending. Patient will also be treated with a pulmonary toilet and supplemental oxygen as required to maintain O2 sat greater than 93%. Daily CBCs will be used to monitor the patient's course. (5) Diabetes mellitus type 2 in nonobese Is this a current diagnosis for this admission?: Yes Plan: Patient be treated with her current diabetic medication regimen. She will be continued on a diabetic diet. She will have before meals and at bedtime Accu- Cheks performed with sliding scale insulin for hyperglycemia and a hypoglycemic protocol in place. Hemoglobin A1c will be obtained to assess the efficacy her current therapy. (6) Hypertension Qualifiers: Hypertension type: essential hypertension Qualified Code(s): I10 - Essential (primary) hypertension Is this a current diagnosis for this admission?: Yes Plan: Patient be continued on her current antihypertensive regiment and her blood pressure be monitored closely throughout her hospital course. Metabolic pr ofiles and magnesium levels will be followed throughout the hospital course. (7) Hyperlipidemia Qualifiers: Hyperlipidemia type: unspecified Qualified Code(s): E78.5 - Hyperlipidemia, unspecified Is this a current diagnosis for this admission?: Yes Plan: A lipid profile will be obtained. Patient will be continued on her current lipid therapy with adjustments made as appropriate based upon her testing. (8) Hypothyroidism Qualifiers: Hypothyroidism type: unspecified Qualified Code(s): E03.9 - Hypothyroidism, unspecified Is this a current diagnosis for this admission?: Yes Plan: A thyroid profile will be obtained to assess the efficacy of the patient's current therapy. Patient will be continued on her current replacement regiment with adjustments as appropriate. (9) CAD (coronary artery disease) Qualifiers: Coronary Disease-Associated Artery/Lesion type: [place] artery Associated angina: without angina Is this a current diagnosis for this admission?: Yes Plan: Patient be continued on her current medications for treatment of coronary artery disease. Patient will be monitored on telemetry throughout her hospital course. (10) Congestive heart failure (CHF) Qualifiers: Heart failure type: unspecified Heart failure chronicity: chronic Qualified Code(s): I50.9 - Heart failure, unspecified Is this a current diagnosis for this admission?: Yes Plan: Patient be continued on her current regimen for congestive heart failure. Patient be monitored throughout her hospital course. (11) Acute hypokalemia Is this a current diagnosis for this admission?: Yes Plan: Patient's potassium will be repleted with oral and IV potassium and will be monitored with serial basic metabolic profiles and magnesium levels. (12) Acute kidney injury (nontraumatic) Is this a current diagnosis for this admission?: Yes Plan: Patient be treated with IV fluids and supportive and symptomatic treatments. Daily metabolic profiles will be used to monitor her renal functions. (13) Leukocytosis Qualifiers: Leukocytosis type: bandemia Qualified Code(s): D72.825 - Bandemia Is this a current diagnosis for this admission?: Yes Plan: Patient be monitored with daily CBCs. (14) Acute respiratory failure with hypoxia Is this a current diagnosis for this admission?: Yes Plan: Patient receive supplemental oxygen utilizing nasal cannula to maintain an O2 saturation greater than 93%. Noninvasive airway pressure support devices will be used if required. A pulmonary toilet will be employed to improve respiratory function. - Time Time Spent with patient: 25-34 minutes Medications reviewed and adjusted accordingly: Yes Anticipated discharge: Home - Inpatient Certification Based on my medical assessment, after consideration of the patient's comorbidities, presenting symptoms, or acuity I expect that the services needed warrant INPATIENT care.: Yes I certify that my determination is in accordance with my understanding of Medicare's requirements for reasonable and necessary INPATIENT services [42 CFR 412.3e].: Yes Medical Necessity: Significant Comorbidiites Make Outpatient Treatment Too Risky, Need Close Monitoring Due to Risk of Patient Decompensation, Need For IV Fluids, Need For Continuous Telemetry Monitoring, Need for Nebulizer Therapy and Monitoring of Response, Need for IV Antibiotics, Risk of Complication if Not Cared For in Hospital
[2019-03-26] MEDS: INSULIN REG, HUMAN 100 UNIT/ML 3 ML VIAL (PYX) SUBCUT SCH ×4 (09:29→22:52)
[2019-03-26] MEDS: DOCUSATE SODIUM 100 MG CAPSULE PO SCH ×2 (09:31→17:01)
[2019-03-26] MEDS ORDERED: FAMOTIDINE 20 MG TABLET PO SCH (10:00)
--- NOTE | 2019-03-26 11:02 | PDOC PROGRESS REPORT ---
Subjective Progress Note for:: 03/26/19 Subjective:: 83 year old female who presented to the emergency room with acute lethargy. Patient and her family admit increased lethargy that has developed since the morning of admission. Family members felt that the patient may have taken too much medication but she denied that possibility. She insists that she has felt "sleepy" all day and complains of generalized malaise. She denies other associated or accompanying signs and symptoms. She denies prior similar episodes and has not identified any aggravating or ameliorating factors for her lethargy. In the emergency room the patient was initially hypoxic and required nasal cannula oxygen to improve her oxygen saturation to 94%. She was given Tylenol for a fever of 102 F and dramatically improved in symptomology. A chest x-ray revealed a right lower lung pneumonia and antibiotic therapy was initiated after blood cultures were obtained. Patient was subsequently admitted to hospital for further evaluation treatment. [id number] female admitted with right lower lobe pneumonia. pt on azithromycin and ceftriaxone. Afebrile. Admission WBC count is 22,002 weeks check CBC today. Patient wants to be full code. Reason For Visit: PNUEMONIA Physical Exam Vital Signs: Temp Pulse Resp BP Pulse Ox 98.7 F 85 25 H 114/55 L 100 03/26/19 06:37 03/26/19 01:20 03/26/19 09:02 03/26/19 09:02 03/26/19 09:02 Intake & Output 03/25/19 03/26/19 03/27/19 06:59 06:59 06:59 Intake Total 950 Balance 950 Weight 65.4 kg General appearance: PRESENT: no acute distress, thin Head exam: PRESENT: atraumatic Eye exam: PRESENT: PERRLA Mouth exam: PRESENT: moist, tongue midline Teeth exam: PRESENT: poor dentation Neck exam: ABSENT: carotid bruit, JVD, lymphadenopathy, thyromegaly Respiratory exam: PRESENT: decreased breath sounds Cardiovascular exam: PRESENT: RRR. ABSENT: diastolic murmur, rubs, systolic murmur GI/Abdominal exam: PRESENT: normal bowel sounds, soft. ABSENT: distended, guarding, mass, organolmegaly, rebound, tenderness Rectal exam: PRESENT: deferred Extremities exam: PRESENT: full ROM. ABSENT: calf tenderness, clubbing, pedal edema Psychiatric exam: PRESENT: appropriate affect, normal mood. ABSENT: homicidal ideation, suicidal ideation Skin exam: PRESENT: dry, intact, warm. ABSENT: cyanosis, rash Results Laboratory Results: 03/25/19 20:00 03/25/19 20:00 03/25/19 03/25/19 03/25/19 20:00 20:00 20:00 WBC 21.2 H RBC 4.46 Hgb 12.3 Hct 37.3 MCV 84 MCH 27.5 MCHC 32.9 RDW 13.5 Plt Count 278 Seg Neutrophils % Not Reportable VBG pH 7.38 VBG pCO2 36.8 VBG HCO3 21.1 VBG Base Excess -3.5 Sodium 135.3 L Potassium 3.2 L Chloride 105 Carbon Dioxide 19 L Anion Gap 11 BUN 21 H Creatinine 1.35 H Est GFR ( Amer) 45 L Glucose 157 H Lactic Acid Calcium 8.6 Magnesium 1.6 Total Bilirubin 0.7 AST 36 Alkaline Phosphatase 45 Total Protein 6.6 Albumin 3.7 Free T4 Free T3 pg/mL Urine Color Urine Appearance Urine pH Ur Specific [place] Urine Protein Urine Glucose (UA) Urine Ketones Urine Blood Urine Nitrite Ur Leukocyte Esterase Urine WBC (Auto) Urine RBC (Auto) 03/25/19 03/25/19 03/26/19 20:53 21:24 00:00 WBC RBC Hgb Hct MCV MCH MCHC RDW Plt Count Seg Neutrophils % VBG pH VBG pCO2 VBG HCO3 VBG Base Excess Sodium Potassium Chloride Carbon Dioxide Anion Gap BUN Creatinine Est GFR ( Amer) Glucose Lactic Acid 1.1 Calcium Magnesium Total Bilirubin AST Alkaline Phosphatase Total Protein Albumin Free T4 1.24 Free T3 pg/mL 2.05 L Urine Color YELLOW Urine Appearance CLEAR Urine pH 7.0 Ur Specific [place] 1.011 Urine Protein 100 H Urine Glucose (UA) 50 H Urine Ketones TRACE H Urine Blood SMALL H Urine Nitrite NEGATIVE Ur Leukocyte Esterase NEGATIVE Urine WBC (Auto) 0 Urine RBC (Auto) 4 03/25/19 03/25/19 20:00 20:00 Creatine Kinase 388 H Troponin I 0.122 NT-Pro-B Natriuret Pep 8540 H Impressions: Chest X-Ray 03/25/19 20:15 IMPRESSION: 1. Infiltrate in the right lower lung field, likely a right lower lobe pneumonia. Assessment and Plan - Diagnosis (1) Pneumonia Qualifiers: Pneumonia type: due to unspecified organism Laterality: right Lung location: lower lobe of lung Qualified Code(s): J18.1 - Lobar pneumonia, unspecified organism Is this a current diagnosis for this admission?: Yes Plan: Patient be treated with IV antibiotics utilizing ceftriaxone and azithromycin. Blood cultures are pending. Patient will also be treated with a pulmonary toilet and supplemental oxygen as required to maintain O2 sat greater than 93%. Daily CBCs will be used to monitor the patient's course. 03/26/2019-patient admitted with with pneumonia on IV ceftriaxone and azithromycin. WBC count at the time of admission is 22,000. To repeat the labs today. Blood pressure is 114/55. Stable. Pulse ox 100% on room air. (2) Diabetes mellitus type 2 in nonobese Is this a current diagnosis for this admission?: Yes Plan: Patient be treated with her current diabetic medication regimen. She will be continued on a diabetic diet. She will have before meals and at bedtime Accu- Cheks performed with sliding scale insulin for hyperglycemia and a hypoglycemic protocol in place. Hemoglobin A1c will be obtained to assess the efficacy her current therapy. 03/26/2019-patient blood sugar is 102. Stable. Plan is to continue blood sugar monitoring aC and at bedtime. Hemoglobin A1c is pending. (3) Congestive heart failure (CHF) Qualifiers: Heart failure type: unspecified Heart failure chronicity: chronic Qualified Code(s): I50.9 - Heart failure, unspecified Is this a current diagnosis for this admission?: Yes Plan: Patient be continued on her current regimen for congestive heart failure. Patient be monitored throughout her hospital course. 03/26/2019-patient has history of chronic congestive heart failure. Most likely diastolic heart failure. Not in fluid overload. (4) Hypokalemia Is this a current diagnosis for this admission?: Yes Plan: 03/26/2019 patient serum potassium is 3.2 to give potassium supplementation and it is recheck the labs tomorrow. (5) Fever Qualifiers: Fever type: unspecified Qualified Code(s): R50.9 - Fever, unspecified Is this a current diagnosis for this admission?: Yes Plan: Patient be treated with symptomatic and supportive cares utilizing IV fluid and mild antipyretic/analgesics such as Tylenol to control fever and malaise. 03/26/2019-patient admitted with fever latest temperature is 98.7. On IV Zithromax and IV Rocephin. Fever is resolving. (6) Leukocytosis Qualifiers: Leukocytosis type: bandemia Qualified Code(s): D72.825 - Bandemia Is this a current diagnosis for this admission?: Yes Plan: Patient be monitored with daily CBCs. 03/26/2019-admission WBC count is 22,000. Plan is to repeat the CBC today and tomorrow. elevated WBC most likely secondary to pneumonia. (7) Acute kidney injury (nontraumatic) Is this a current diagnosis for this admission?: Yes Plan: Patient be treated with IV fluids and supportive and symptomatic treatments. Daily metabolic profiles will be used to monitor her renal functions. 03/26/2019-serum creatinine today is 1.35. Baseline creatinine is around 0.8. Acute kidney injury most likely secondary to prerenal causes. Plan is to repeat the labs tomorrow. Patient is receiving IV fluids at this time. - Time Time Spent with patient: 25-34 minutes
[2019-03-26 11:12] LABS: HEMATOCRIT 31.7 % (36.0-47.0); HEMOGLOBIN 10.4 g/dL (12.0-15.5); MEAN CORPUSCULAR HEMOGLOBIN 27.3 pg (27.0-33.4); MEAN CORPUSCULAR HGB CONC 32.8 g/dL (32.0-36.0); MEAN CORPUSCULAR VOLUME 83 fl (80-97); PLATELET COUNT 244 10^3/uL (150-450); RED BLOOD COUNT 3.81 10^6/uL (3.72-5.28); RED CELL DISTRIBUTION WIDTH 13.5 % (11.5-14.0); WHITE BLOOD COUNT 18.5 10^3/uL (4.0-10.5)
[2019-03-26 11:35] LABS: ABSOLUTE LYMPHOCYTES# (MANUAL) 0.7 10^3/uL (0.5-4.7); ABSOLUTE MONOCYTES # (MANUAL) 1.5 10^3/uL (0.1-1.4); BASOPHILS % (MANUAL) 0 % (0-2); EOSINOPHILS % (MANUAL) 0 % (0-6); LYMPHOCYTES % (MANUAL) 4 % (13-45); MONOCYTES % (MANUAL) 8 % (3-13); SEGMENTED NEUTROPHILS % (MAN) 88 % (42-78); TOTAL CELLS COUNTED 100
[2019-03-26 11:37] LABS: OVALOCYTES SLIGHT; PLATELET COMMENT ADEQUATE; POIKILOCYTOSIS SLIGHT
[2019-03-26 11:48] LABS: ALBUMIN 3.4 g/dL (3.5-5.0); ALKALINE PHOSPHATASE 40 U/L (38-126); ANION GAP 11 (5-19); ASPARTATE AMINO TRANSFERASE 39 U/L (14-36); BILIRUBIN,DIRECT 0.4 mg/dL (0.0-0.4); BILIRUBIN,TOTAL 0.5 mg/dL (0.2-1.3); BLOOD UREA NITROGEN 22 mg/dL (7-20); CARBON DIOXIDE 23 mmol/L (22-30); CHLORIDE 99 mmol/L (98-107); GLUCOSE 112 mg/dL (75-110); POTASSIUM 3.8 mmol/L (3.6-5.0); TOTAL PROTEIN 6.4 g/dL (6.3-8.2)
[2019-03-26] MEDS ORDERED: INFLUENZA QUAD (6MOS+) 2019-20 VAC 0.5 ML SYR IM ONE (14:15)
[2019-03-26] MEDS: TRAMADOL HCL 50 MG TABLET PO PRN (17:13)
[2019-03-26] MEDS ORDERED: CEFTRIAXONE 1 GM/D5W RTU 1 GM/50 ML RTUPB IV SCH (22:00)
[2019-03-26] MEDS: CARVEDILOL 6.25 MG TABLET PO SCH (22:51)
[2019-03-26] MEDS: ATORVASTATIN CALCIUM 20 MG TABLET PO SCH (22:51)
[2019-03-27] MEDS: HEPARIN SOD (PORCINE) 5,000 UNIT/ML 1 ML VIAL SUBCUT SCH ×3 (05:47→21:25)
[2019-03-27] MEDS: LEVOTHYROXINE SODIUM 0.025 MG TABLET PO SCH (05:48)
[2019-03-27] MEDS: ACETAMINOPHEN 325 MG TABLET PO PRN (05:48)
[2019-03-27] MEDS: LEVOTHYROXINE SODIUM 0.1 MG TABLET PO SCH (05:49)
[2019-03-27] MEDS ORDERED: (PENDING PHARMACY ID) (Levothyroxine Sodium [Synthroid] 125 MCG) PO SCH (06:00)
[2019-03-27 06:15] LABS: HEMATOCRIT 30.2 % (36.0-47.0); HEMOGLOBIN 9.9 g/dL (12.0-15.5); MEAN CORPUSCULAR HEMOGLOBIN 27.3 pg (27.0-33.4); MEAN CORPUSCULAR HGB CONC 32.8 g/dL (32.0-36.0); MEAN CORPUSCULAR VOLUME 83 fl (80-97); PLATELET COUNT 213 10^3/uL (150-450); RED BLOOD COUNT 3.63 10^6/uL (3.72-5.28); RED CELL DISTRIBUTION WIDTH 13.8 % (11.5-14.0); WHITE BLOOD COUNT 15.9 10^3/uL (4.0-10.5)
[2019-03-27 06:40] LABS: ANION GAP 9 (5-19); BLOOD UREA NITROGEN 22 mg/dL (7-20); CARBON DIOXIDE 24 mmol/L (22-30); CHLORIDE 103 mmol/L (98-107); GLUCOSE 91 mg/dL (75-110); POTASSIUM 3.6 mmol/L (3.6-5.0)
[2019-03-27] MEDS: INSULIN REG, HUMAN 100 UNIT/ML 3 ML VIAL (PYX) SUBCUT SCH ×4 (09:37→21:27)
[2019-03-27] MEDS: LISINOPRIL 10 MG TABLET PO SCH (09:45)
[2019-03-27] MEDS: FENOFIBRATE NANOCRYSTALLIZED 48 MG TABLET PO SCH (09:46)
[2019-03-27] MEDS: CITALOPRAM HYDROBROMIDE 20 MG TABLET PO SCH (09:46)
[2019-03-27] MEDS: DOCUSATE SODIUM 100 MG CAPSULE PO SCH ×2 (09:46→17:33)
[2019-03-27] MEDS: CARVEDILOL 6.25 MG TABLET PO SCH ×2 (09:46→21:26)
[2019-03-27] MEDS: AZITHROMYCIN 500 MG in DEXTROSE 5%-WATER 250 ML IV SCH (09:47)
--- NOTE | 2019-03-27 13:19 | PDOC PROGRESS REPORT ---
Subjective Progress Note for:: 03/27/19 Subjective:: The patient is resting in bed. She has a very flat affect. She does interact verbally. She reports feeling very tired. Reason For Visit: PNUEMONIA Physical Exam Vital Signs: Temp Pulse Resp BP Pulse Ox 98.8 F 77 16 138/41 H 98 03/27/19 07:46 03/27/19 07:46 03/27/19 07:46 03/27/19 07:46 03/27/19 07:46 Intake & Output 03/26/19 03/27/19 03/28/19 06:59 06:59 06:59 Intake Total 950 1290 Balance 950 1290 Weight 65.4 kg 60.2 kg General appearance: PRESENT: no acute distress, cooperative, well-developed Head exam: PRESENT: atraumatic, normocephalic Mouth exam: PRESENT: dry mucosa, tongue midline Respiratory exam: PRESENT: crackles - at bases, symmetrical, unlabored. ABSENT: rales, rhonchi, tachypnea, wheezes Cardiovascular exam: PRESENT: RRR, +S1, +S2 GI/Abdominal exam: PRESENT: normal bowel sounds, soft. ABSENT: distended, tenderness Extremities exam: PRESENT: +1 edema Musculoskeletal exam: PRESENT: ambulatory - With help Neurological exam: PRESENT: alert, awake, oriented to person, oriented to place, oriented to situation Psychiatric exam: PRESENT: flat affect. ABSENT: agitated, anxious Skin exam: PRESENT: erythema Results Laboratory Results: 03/27/19 05:57 03/27/19 05:57 03/27/19 03/27/19 03/27/19 05:57 05:57 05:57 WBC 15.9 H RBC 3.63 L Hgb 9.9 L Hct 30.2 L MCV 83 MCH 27.3 MCHC 32.8 RDW 13.8 Plt Count 213 Sodium 135.7 L Potassium 3.6 Chloride 103 Carbon Dioxide 24 Anion Gap 9 BUN 22 H Creatinine 1.58 H Est GFR ( Amer) 38 L Glucose 91 Calcium 9.0 TSH 2.16 03/25/19 03/25/19 20:00 20:00 Creatine Kinase 388 H Troponin I 0.122 NT-Pro-B Natriuret Pep 8540 H Impressions: Chest X-Ray 03/25/19 20:15 IMPRESSION: 1. Infiltrate in the right lower lung field, likely a right lower lobe pneumonia. Assessment and Plan - Diagnosis (1) Acute respiratory failure with hypoxia Is this a current diagnosis for this admission?: Yes Plan: Patient receive supplemental oxygen utilizing nasal cannula to maintain an O2 saturation greater than 93%. Noninvasive airway pressure support devices will be used if required. A pulmonary toilet will be employed to improve respiratory function. 03/27/2019-continue supplemental oxygen as well as antibiotics and pulmonary toilet failure likely secondary to pneumonia (2) Pneumonia Qualifiers: Pneumonia type: due to unspecified organism Laterality: right Lung location: lower lobe of lung Qualified Code(s): J18.1 - Lobar pneumonia, un specified organism Is this a current diagnosis for this admission?: Yes Plan: Patient be treated with IV antibiotics utilizing ceftriaxone and azithromycin. Blood cultures are pending. Patient will also be treated with a pulmonary toilet and supplemental oxygen as required to maintain O2 sat greater than 93%. Daily CBCs will be used to monitor the patient's course. 03/26/2019-patient admitted with with pneumonia on IV ceftriaxone and a zithromycin. WBC count at the time of admission is 22,000. To repeat the labs today. Blood pressure is 114/55. Stable. Pulse ox 100% on room air. 03/27/2019-continue current antibiotic regimen (3) Diabetes mellitus type 2 in nonobese Is this a current diagnosis for this admission?: Yes Plan: 03/27/2019-excellent Accu-Cheks. Continue current regimen. (4) Hypokalemia Is this a current diagnosis for this admission?: Yes Plan: 04/27/2019-continue potassium supplement. Monitor serum potassium levels. (5) Lethargy Is this a current diagnosis for this admission?: Yes Plan: 03/27/2019-likely due to infection and comorbidities. Continue current treatment plan. Continue physical therapy. (6) Leukocytosis Qualifiers: Leukocytosis type: bandemia Qualified Code(s): D72.825 - Bandemia Is this a current diagnosis for this admission?: Yes Plan: 03/27/2019-white blood cell count improving. Continue to monitor. (7) Acute kidney injury (nontraumatic) Is this a current diagnosis for this admission?: Yes Plan: Patient be treated with IV fluids and supportive and symptomatic treatments. Ajith smith metabolic profiles will be used to monitor her renal functions. 03/26/2019-serum creatinine today is 1.35. Baseline creatinine is around 0.8. Acute kidney injury most likely secondary to prerenal causes. Plan is to repeat the labs tomorrow. Patient is receiving IV fluids at this time. 03/27/2019-serum creatinine is slightly higher today. Currently no diuretics and she is getting IV fluid. Will need to monitor intake and output to avoid fluid overload. (8) Cellulitis and abscess of leg Is this a current diagnosis for this admission?: Yes Plan: 03/27/2019-after seeing the patient I was contacted by nursing. The patient has a red and swollen leg. This it started prior to admission. I have changed the ceftriaxone to cefepime. (9) Bacteremia due to Staphylococcus Is this a current diagnosis for this admission?: Yes Plan: 03/27/2019-1 blood culture set is positive the other is negative. Staph species is growing. Await final identification and sensitivities. The patient is now on cefepime because of the worsening cellulitis of her leg. - Time Time Spent with patient: Less than 15 minutes Medications reviewed and adjusted accordingly: Yes
[2019-03-27] MEDS: TRAMADOL HCL 50 MG TABLET PO PRN (15:19)
[2019-03-27] MEDS: FAMOTIDINE 20 MG TABLET PO SCH (16:34)
[2019-03-27] MEDS: CEFEPIME 1 GM/D5W RTU 1 GM/50 ML RTUPB IV SCH (16:35)
[2019-03-27] MEDS: ATORVASTATIN CALCIUM 20 MG TABLET PO SCH (21:26)
[2019-03-28] MEDS: HEPARIN SOD (PORCINE) 5,000 UNIT/ML 1 ML VIAL SUBCUT SCH ×3 (05:49→22:31)
[2019-03-28] MEDS: LEVOTHYROXINE SODIUM 0.1 MG TABLET PO SCH (05:50)
[2019-03-28] MEDS: LEVOTHYROXINE SODIUM 0.025 MG TABLET PO SCH (05:50)
[2019-03-28 06:25] LABS: HEMATOCRIT 28.2 % (36.0-47.0); HEMOGLOBIN 9.3 g/dL (12.0-15.5); MEAN CORPUSCULAR HEMOGLOBIN 27.3 pg (27.0-33.4); MEAN CORPUSCULAR HGB CONC 32.9 g/dL (32.0-36.0); MEAN CORPUSCULAR VOLUME 83 fl (80-97); PLATELET COUNT 213 10^3/uL (150-450); RED CELL DISTRIBUTION WIDTH 13.6 % (11.5-14.0)
[2019-03-28 06:56] LABS: ANION GAP 8 (5-19); BLOOD UREA NITROGEN 21 mg/dL (7-20); CALCIUM 8.8 mg/dL (8.4-10.2); CARBON DIOXIDE 23 mmol/L (22-30); CHLORIDE 102 mmol/L (98-107); GLUCOSE 78 mg/dL (75-110); POTASSIUM 3.7 mmol/L (3.6-5.0)
[2019-03-28] MEDS: DOCUSATE SODIUM 100 MG CAPSULE PO SCH ×2 (09:18→17:28)
[2019-03-28] MEDS: CARVEDILOL 6.25 MG TABLET PO SCH ×2 (09:18→22:31)
[2019-03-28] MEDS: FAMOTIDINE 20 MG TABLET PO SCH (09:18)
[2019-03-28] MEDS: CITALOPRAM HYDROBROMIDE 20 MG TABLET PO SCH (09:19)
[2019-03-28] MEDS: LISINOPRIL 10 MG TABLET PO SCH (09:19)
[2019-03-28] MEDS: CEFEPIME 1 GM/D5W RTU 1 GM/50 ML RTUPB IV SCH (09:21)
[2019-03-28] MEDS: INSULIN REG, HUMAN 100 UNIT/ML 3 ML VIAL (PYX) SUBCUT SCH ×4 (09:28→22:32)
[2019-03-28] MEDS: FENOFIBRATE NANOCRYSTALLIZED 48 MG TABLET PO SCH (09:30)
[2019-03-28] MEDS: AZITHROMYCIN 500 MG in DEXTROSE 5%-WATER 250 ML IV SCH (09:59)
--- NOTE | 2019-03-28 18:05 | PDOC PROGRESS REPORT ---
Subjective Progress Note for:: 03/28/19 Subjective:: No adverse events overnight. No new complaints. Vital signs been stable. The redness on her leg is been improving. Her breathing has been comfortable. No cough or shortness of breath. Reason For Visit: PNUEMONIA Physical Exam Vital Signs: Temp Pulse Resp BP Pulse Ox 98.3 F 79 15 116/42 L 99 03/28/19 12:00 03/28/19 14:00 03/28/19 12:00 03/28/19 12:00 03/28/19 12:00 Intake & Output 03/27/19 03/28/19 03/29/19 06:59 06:59 06:59 Intake Total 1290 540 820 Balance 1290 540 820 Weight 60.2 kg 61 kg General appearance: PRESENT: no acute distress, cooperative, disheveled Respiratory exam: PRESENT: crackles - Bibasilar, symmetrical, unlabored. ABSENT: accessory muscle use, chest wall tenderness, prolonged expiratory phas, rhonchi, tachypnea, wheezes Cardiovascular exam: PRESENT: RRR, +S1, +S2 Pulses: PRESENT: normal carotid pulses Vascular exam: PRESENT: normal capillary refill GI/Abdominal exam: PRESENT: normal bowel sounds, soft. ABSENT: distended, guarding, rebound, tenderness Extremities exam: PRESENT: +1 edema - Right lower extremity, the erythema has receded away from the line of demarcation drawn about it previously. ABSENT: clubbing, pedal edema Musculoskeletal exam: PRESENT: normal inspection. ABSENT: deformity Neurological exam: PRESENT: alert, awake, oriented to person, oriented to place, oriented to situation Psychiatric exam: PRESENT: flat affect Skin exam: PRESENT: dry, erythema - As previously noted Results Laboratory Results: 03/28/19 05:58 03/28/19 05:58 03/28/19 03/28/19 05:58 05:58 WBC 13.0 H RBC 3.40 L Hgb 9.3 L Hct 28.2 L MCV 83 MCH 27.3 MCHC 32.9 RDW 13.6 Plt Count 213 Sodium 133.3 L Potassium 3.7 Chloride 102 Carbon Dioxide 23 Anion Gap 8 BUN 21 H Creatinine 1.44 H Est GFR ( Amer) 42 L Glucose 78 Calcium 8.8 03/25/19 03/25/19 20:00 20:00 Creatine Kinase 388 H Troponin I 0.122 NT-Pro-B Natriuret Pep 8540 H Impressions: Chest X-Ray 03/25/19 20:15 IMPRESSION: 1. Infiltrate in the right lower lung field, likely a right lower lobe pneumonia. Assessment and Plan - Diagnosis (1) Acute respiratory failure with hypoxia Is this a current diagnosis for this admission?: Yes Plan: Due to her pneumonia. Improving with antibiotics. We can try her on room air today. (2) Cellulitis and abscess of leg Is this a current diagnosis for this admission?: Yes Plan: Improving with antibiotics, will continue the current regimen (3) Pneumonia Qualifiers: Pneumonia type: due to unspecified organism Laterality: right Lung location: lower lobe of lung Qualified Code(s): J18.1 - Lobar pneumonia, unspecified organism Is this a current diagnosis for this admission?: Yes Plan: Improving on Rocephin and Zithromax (4) Acute kidney injury (nontraumatic) Is this a current diagnosis for this admission?: Yes Plan: Improving with IV fluids, had a previously normal creatinine earlier this year. - Time Time Spent with patient: 15-24 minutes
[2019-03-28] MEDS: ATORVASTATIN CALCIUM 20 MG TABLET PO SCH (22:31)
[2019-03-29] MEDS: LEVOTHYROXINE SODIUM 0.025 MG TABLET PO SCH (05:42)
[2019-03-29] MEDS: LEVOTHYROXINE SODIUM 0.1 MG TABLET PO SCH (05:42)
[2019-03-29] MEDS: HEPARIN SOD (PORCINE) 5,000 UNIT/ML 1 ML VIAL SUBCUT SCH ×3 (05:43→21:47)
[2019-03-29 06:07] LABS: HEMOGLOBIN 9.6 g/dL (12.0-15.5); MEAN CORPUSCULAR HEMOGLOBIN 27.4 pg (27.0-33.4); MEAN CORPUSCULAR HGB CONC 33.2 g/dL (32.0-36.0); MEAN CORPUSCULAR VOLUME 83 fl (80-97); PLATELET COUNT 240 10^3/uL (150-450); RED CELL DISTRIBUTION WIDTH 13.8 % (11.5-14.0); WHITE BLOOD COUNT 12.7 10^3/uL (4.0-10.5)
[2019-03-29 06:27] LABS: ANION GAP 11 (5-19); BLOOD UREA NITROGEN 23 mg/dL (7-20); CALCIUM 8.7 mg/dL (8.4-10.2); CARBON DIOXIDE 22 mmol/L (22-30); CHLORIDE 105 mmol/L (98-107); POTASSIUM 3.8 mmol/L (3.6-5.0)
[2019-03-29 06:28] LABS: GLUCOSE 89 mg/dL (75-110)
[2019-03-29] MEDS: INSULIN REG, HUMAN 100 UNIT/ML 3 ML VIAL (PYX) SUBCUT SCH ×4 (09:59→21:34)
[2019-03-29] MEDS: AZITHROMYCIN 500 MG in DEXTROSE 5%-WATER 250 ML IV SCH (10:18)
[2019-03-29] MEDS: CEFEPIME 1 GM/D5W RTU 1 GM/50 ML RTUPB IV SCH (10:18)
[2019-03-29] MEDS: LISINOPRIL 10 MG TABLET PO SCH (10:18)
[2019-03-29] MEDS: FAMOTIDINE 20 MG TABLET PO SCH (10:18)
[2019-03-29] MEDS: CARVEDILOL 6.25 MG TABLET PO SCH ×2 (10:18→21:37)
[2019-03-29] MEDS: FENOFIBRATE NANOCRYSTALLIZED 48 MG TABLET PO SCH (10:18)
[2019-03-29] MEDS: CITALOPRAM HYDROBROMIDE 20 MG TABLET PO SCH (10:18)
[2019-03-29] MEDS: DOCUSATE SODIUM 100 MG CAPSULE PO SCH ×2 (10:22→17:25)
[2019-03-29] MEDS: ACETAMINOPHEN 325 MG TABLET PO PRN ×2 (16:58→21:47)
--- NOTE | 2019-03-29 17:15 | PDOC PROGRESS REPORT ---
Subjective Progress Note for:: 03/29/19 Subjective:: No adverse events overnight. No new complaints. Vital signs been stable. She says her legs feeling better. Her breathing feels comfortable. She does not try to get up out of bed to walk yet. PT says she was safe to get up out of bed with assistance. Reason For Visit: PNUEMONIA Physical Exam Vital Signs: Temp Pulse Resp BP Pulse Ox 98.6 F 69 15 124/40 L 100 03/29/19 16:28 03/29/19 16:28 03/29/19 16:28 03/29/19 16:28 03/29/19 16:28 Intake & Output 03/28/19 03/29/19 03/30/19 06:59 06:59 06:59 Intake Total 540 1550 540 Balance 540 1550 540 Weight 61 kg 61.2 kg General appearance: PRESENT: no acute distress, cooperative, disheveled Respiratory exam: PRESENT: Clear to auscultation bilaterally, symmetrical, unlabored. ABSENT: accessory muscle use, chest wall tenderness, prolonged expiratory phas, rhonchi, tachypnea, wheezes Cardiovascular exam: PRESENT: RRR, +S1, +S2 Pulses: PRESENT: normal carotid pulses Vascular exam: PRESENT: normal capillary refill GI/Abdominal exam: PRESENT: normal bowel sounds, soft. ABSENT: distended, guarding, rebound, tenderness Extremities exam: PRESENT: +1 edema - Right lower extremity, the erythema has receded away from the line of demarcation drawn about it previously. ABSENT: clubbing, pedal edema Musculoskeletal exam: PRESENT: normal inspection. ABSENT: deformity Neurological exam: PRESENT: alert, awake, oriented to person, oriented to place, oriented to situation Psychiatric exam: PRESENT: flat affect Skin exam: PRESENT: dry, erythema - As previously noted Results Laboratory Results: 03/29/19 05:39 03/29/19 05:39 03/29/19 03/29/19 05:39 05:39 WBC 12.7 H RBC 3.50 L Hgb 9.6 L Hct 29.0 L MCV 83 MCH 27.4 MCHC 33.2 RDW 13.8 Plt Count 240 Sodium 138.1 Potassium 3.8 Chloride 105 Carbon Dioxide 22 Anion Gap 11 BUN 23 H Creatinine 1.40 H Est GFR ( Amer) 44 L Glucose 89 Calcium 8.7 03/25/19 03/25/19 20:00 20:00 Creatine Kinase 388 H Troponin I 0.122 NT-Pro-B Natriuret Pep 8540 H Impressions: Chest X-Ray 03/25/19 20:15 IMPRESSION: 1. Infiltrate in the right lower lung field, likely a right lower lobe pneumonia. Assessment and Plan - Diagnosis (1) Acute respiratory failure with hypoxia Is this a current diagnosis for this admission?: Yes Plan: I think it is essentially resolved. We cannot take her oxygen off and get her up and walk around to help open up her lungs more. Of encourage incentive spirometry but the incentive spirometer was sitting too far away for her to gr ab. (2) Cellulitis and abscess of leg Is this a current diagnosis for this admission?: Yes Plan: Improving with antibiotics, will continue the current regimen (3) Pneumonia Qualifiers: Pneumonia type: due to unspecified organism Laterality: right Lung location: lower lobe of lung Qualified Code(s): J18.1 - Lobar pneumonia, unspecified organism Is this a current diagnosis for this admission?: Yes Plan: Improving on Rocephin and Zithromax (4) Acute kidney injury (nontraumatic) Is this a current diagnosis for this admission?: Yes Plan: Improving with IV fluids, had a previously normal creatinine earlier this year. - Time Time Spent with patient: 15-24 minutes
[2019-03-29] MEDS: ATORVASTATIN CALCIUM 20 MG TABLET PO SCH (21:49)
[2019-03-30] MEDS: LEVOTHYROXINE SODIUM 0.1 MG TABLET PO SCH (05:16)
[2019-03-30] MEDS: LEVOTHYROXINE SODIUM 0.025 MG TABLET PO SCH (05:17)
[2019-03-30] MEDS: HEPARIN SOD (PORCINE) 5,000 UNIT/ML 1 ML VIAL SUBCUT SCH ×2 (05:17→17:20)
[2019-03-30] MEDS: AZITHROMYCIN 500 MG in DEXTROSE 5%-WATER 250 ML IV SCH (08:35)
[2019-03-30] MEDS: INSULIN REG, HUMAN 100 UNIT/ML 3 ML VIAL (PYX) SUBCUT SCH ×2 (13:02→13:03)
[2019-03-30] MEDS: DOCUSATE SODIUM 100 MG CAPSULE PO SCH (13:04)
[2019-03-30] MEDS: FAMOTIDINE 20 MG TABLET PO SCH (13:08)
[2019-03-30] MEDS: FENOFIBRATE NANOCRYSTALLIZED 48 MG TABLET PO SCH (13:08)
[2019-03-30] MEDS: CITALOPRAM HYDROBROMIDE 20 MG TABLET PO SCH (13:08)
[2019-03-30] MEDS: LISINOPRIL 10 MG TABLET PO SCH (13:08)
[2019-03-30] MEDS: CARVEDILOL 6.25 MG TABLET PO SCH (13:09)
[2019-03-30] MEDS: CEFEPIME 1 GM/D5W RTU 1 GM/50 ML RTUPB IV SCH (13:09)
--- NOTE | 2019-03-30 15:44 | PDOC DISCHARGE SUMMARY ---
Impression - Admit/DC Date/PCP Admission Date/Primary Care Provider: 03/25/19 22:07 ADENIKE HERBERT PA-C Discharge Date: 03/30/19 - Discharge Diagnosis (1) Acute respiratory failure with hypoxia Is this a current diagnosis for this admission?: Yes (2) Cellulitis and abscess of leg Is this a current diagnosis for this admission?: Yes (3) Pneumonia Is this a current diagnosis for this admission?: Yes (4) Acute kidney injury (nontraumatic) Is this a current diagnosis for this admission?: Yes - Additional Information Resuscitation Status: Full Code Discharge Diet: Diabetic Discharge Activity: Activity As Tolerated, Balance Activity w/Rest Referrals: ADENIKE HERBERT PA-C [Primary Care Provider] - 04/06/19 1:15 pm Prescriptions: Cefpodoxime Proxetil [Vantin 100 mg Tablet] 1 tab PO Q12 #14 tab Home Medications: Carvedilol [Coreg 6.25 mg Tablet] 6.25 mg PO Q12 09/09/18 Citalopram Hydrobromide [Celexa 20 mg Tablet] 20 mg PO DAILY 09/09/18 Clopidogrel Bisulfate [Plavix 75 mg Tablet] 75 mg PO DAILY 09/09/18 Fenofibrate Nanocrystallized [Tricor 48 mg Tablet] 48 mg PO DAILY 09/09/18 Furosemide [Lasix 40 mg Tablet] 40 mg PO DAILY 09/09/18 Levothyroxine Sodium [Synthroid] 125 mcg PO Q6AM 09/09/18 Lisinopril [Prinivil 10 mg Tablet] 10 mg PO DAILY 09/09/18 Pantoprazole Sodium [Protonix [address] Tablet] 20 mg PO DAILY 09/09/18 Potassium Chloride [Klor-Con 10 Meq Capsule ER] 10 meq PO DAILY 09/09/18 Cholecalciferol (Vitamin D3) [Vitamin D3 1000 Unit Tablet] 1,000 unit PO DAILY 03/26/19 Cyanocobalamin (Vitamin B-12) [Vitamin B-12 1000 mcg Tablet] 1,000 mcg PO DAILY 03/26/19 Docusate Sodium [Colace 100 mg Capsule] 100 mg PO DAILY 03/26/19 Cefpodoxime Proxetil [Vantin 100 mg Tablet] 1 tab PO Q12 #14 tab 03/30/19 History of Present Illiness History of Present Illness: SANDRA SPRINGER is a 83 year old female who presented to the emergency room with acute lethargy. Patient and her family admit increased lethargy that has developed since the morning of admission. Family members felt that the patient may have taken too much medication but she denied that possibility. She insists that she has felt "sleepy" all day and complains of generalized malaise. She denies other associated or accompanying signs and symptoms. She denies prior similar episodes and has not identified any aggravating or ameliorating factors for her lethargy. In the emergency room the patient was initially hypoxic and required nasal cannula oxygen to improve her oxygen saturation to 94%. She was given Tylenol for a fever of 102 F and dramatically improved in symptomology. A chest x-ray revealed a right lower lung pneumonia and antibiotic therapy was initiated after blood cultures were obtained. Patient was subsequently admitted to hospital for further evaluation treatment. Hospital Course Hospital Course: She responded very well to antibiotics. Getting her to get up and walk and ambulate was a challenge, she did not want to get up and do very much in terms of activity. Her cellulitis also responded well to antibiotics. She initially required some oxygen but was able to get weaned off of that completely. She will continue a course of antibiotics at home, primarily for her cellulitis at this point. She was seen and evaluated by physical therapy who recommended home health PT. Patient only has a walker. The arrangements were set up and she was discharged in good condition. Physical Exam Vital Signs: Temp Pulse Resp BP Pulse Ox 97.9 F 71 16 144/42 H 96 03/30/19 11:39 03/30/19 11:39 03/30/19 11:39 03/30/19 11:39 03/30/19 11:39 Intake & Output 03/29/19 03/30/19 03/31/19 06:59 06:59 06:59 Intake Total 1550 900 360 Balance 1550 900 360 Weight 61.2 kg 61.2 kg General appearance: PRESENT: no acute distress, cooperative, disheveled Respiratory exam: PRESENT: Clear to auscultation bilaterally, symmetrical, unlabored. ABSENT: accessory muscle use, chest wall tenderness, prolonged expiratory phas, rhonchi, tachypnea, wheezes Cardiovascular exam: PRESENT: RRR, +S1, +S2 Pulses: PRESENT: normal carotid pulses Vascular exam: PRESENT: normal capillary refill GI/Abdominal exam: PRESENT: normal bowel sounds, soft. ABSENT: distended, guarding, rebound, tenderness Extremities exam: PRESENT: +1 edema - Right lower extremity, the erythema has receded away from the line of demarcation drawn about it previously. ABSENT: clubbing, pedal edema Musculoskeletal exam: PRESENT: normal inspection. ABSENT: deformity Neurological exam: PRESENT: alert, awake, oriented to person, oriented to place, oriented to situation Psychiatric exam: PRESENT: flat affect Skin exam: PRESENT: dry, erythema - As previously noted Results Laboratory Results: WBC 12.7 10^3/uL (4.0-10.5) H 03/29/19 05:39 RBC 3.50 10^6/uL (3.72-5.28) L 03/29/19 05:39 Hgb 9.6 g/dL (12.0-15.5) L 03/29/19 05:39 Hct 29.0 % (36.0-47.0) L 03/29/19 05:39 MCV 83 fl (80-97) 03/29/19 05:39 MCH 27.4 pg (27.0-33.4) 03/29/19 05:39 MCHC 33.2 g/dL (32.0-36.0) 03/29/19 05:39 RDW 13.8 % (11.5-14.0) 03/29/19 05:39 Plt Count 240 10^3/uL (150-450) 03/29/19 05:39 Lymph % (Auto) Not Reportable 03/26/19 11:02 [place] % (Auto) Not Reportable 03/26/19 11:02 Eos % (Auto) Not Reportable 03/26/19 11:02 Baso % (Auto) Not Reportable 03/26/19 11:02 Absolute Neuts (auto) Not Reportable 03/26/19 11:02 Absolute Lymphs (auto) Not Reportable 03/26/19 11:02 Absolute Monos (auto) Not Reportable 03/26/19 11:02 Absolute Eos (auto) Not Reportable 03/26/19 11:02 Absolute Basos (auto) Not Reportable 03/26/19 11:02 Total Counted 100 03/26/19 11:02 Seg Neutrophils % Not Reportable 03/26/19 11:02 Seg Neuts % (Manual) 88 % (42-78) H 03/26/19 11:02 Band Neutrophils % 7 % (3-5) H 03/25/19 20:00 Lymphocytes % (Manual) 4 % (13-45) L 03/26/19 11:02 Monocytes % (Manual) 8 % (3-13) 03/26/19 11:02 Eosinophils % (Manual) 0 % (0-6) 03/26/19 11:02 Basophils % (Manual) 0 % (0-2) 03/26/19 11:02 Abs Neuts (Manual) 16.3 10^3/uL (1.7-8.2) H 03/26/19 11:02 Abs Lymphs (Manual) 0.7 10^3/uL (0.5-4.7) 03/26/19 11:02 Abs Monocytes (Manual) 1.5 10^3/uL (0.1-1.4) H 03/26/19 11:02 Absolute Eos (Manual) 0.0 10^3/uL (0.0-0.6) 03/26/19 11:02 Abs Basophils (Manual) 0.0 10^3/uL (0.0-0.2) 03/26/19 11:02 Platelet Comment ADEQUATE 03/26/19 11:02 Poikilocytosis SLIGHT 03/26/19 11:02 Ovalocytes SLIGHT 03/26/19 11:02 RBC Morph Comment NORMO-CYTIC/CHROMIC 03/25/19 20:00 VBG pH 7.38 (7.30-7.42) 03/25/19 20:00 VBG pCO2 36.8 mmHg (35-63) 03/25/19 20:00 VBG HCO3 21.1 mmol/L (20-32) 03/25/19 20:00 VBG Base Excess -3.5 mmol/L 03/25/19 20:00 Sodium 138.1 mmol/L (137-145) 03/29/19 05:39 Potassium 3.8 mmol/L (3.6-5.0) 03/29/19 05:39 Chloride 105 mmol/L (98-107) 03/29/19 05:39 Carbon Dioxide 22 mmol/L (22-30) 03/29/19 05:39 Anion Gap 11 (5-19) 03/29/19 05:39 BUN 23 mg/dL (7-20) H 03/29/19 05:39 Creatinine 1.40 mg/dL (0.52-1.25) H 03/29/19 05:39 Est GFR ( Amer) 44 (>60) L 03/29/19 05:39 Est GFR (MDRD) Non-Af 36 (>60) L 03/29/19 05:39 Glucose 89 mg/dL (75-110) 03/29/19 05:39 POC Glucose 96 mg/dL (70-110) 03/30/19 12:38 Hemoglobin A1c % 5.6 % (4.7-6.0) 03/27/19 05:57 Lactic Acid 1.1 mmol/L (0.7-2.1) 03/25/19 21:24 Calcium 8.7 mg/dL (8.4-10.2) 03/29/19 05:39 Magnesium 1.7 mg/dL (1.6-2.3) 03/26/19 11:02 Total Bilirubin 0.5 mg/dL (0.2-1.3) 03/26/19 11:02 Direct Bilirubin 0.4 mg/dL (0.0-0.4) 03/26/19 11:02 Neonat Total Bilirubin Not Reportable 03/26/19 11:02 Neonat Direct Bilirubin Not Reportable 03/26/19 11:02 Neonat Indirect Bili Not Reportable 03/26/19 11:02 AST 39 U/L (14-36) H 03/26/19 11:02 ALT 18 U/L (<35) 03/26/19 11:02 Alkaline Phosphatase 40 U/L (38-126) 03/26/19 11:02 Creatine Kinase 388 U/L (30-135) H 03/25/19 20:00 Troponin I 0.122 ng/mL 03/25/19 20:00 NT-Pro-B Natriuret Pep 8540 pg/mL (<450) H 03/25/19 20:00 Total Protein 6.4 g/dL (6.3-8.2) 03/26/19 11:02 Albumin 3.4 g/dL (3.5-5.0) L 03/26/19 11:02 TSH 2.16 uIU/mL (0.47-4.68) 03/27/19 05:57 Free T4 1.24 ng/dL (0.78-2.19) 03/26/19 00:00 Free T3 pg/mL 2.05 pg/mL (2.77-5.27) L 03/26/19 00:00 Urine Color YELLOW 03/25/19 20:53 Urine Appearance CLEAR 03/25/19 20:53 Urine pH 7.0 (5.0-9.0) 03/25/19 20:53 Ur Specific [facility] 1.011 03/25/19 20:53 Urine Protein 100 mg/dL (NEGATIVE) H 03/25/19 20:53 Urine Glucose (UA) 50 mg/dL (NEGATIVE) H 03/25/19 20:53 Urine Ketones TRACE mg/dL (NEGATIVE) H 03/25/19 20:53 Urine Blood SMALL (NEGATIVE) H 03/25/19 20:53 Urine Nitrite NEGATIVE (NEGATIVE) 03/25/19 20:53 Urine Bilirubin NEGATIVE (NEGATIVE) 03/25/19 20:53 Urine Urobilinogen NEGATIVE mg/dL (<2.0) 03/25/19 20:53 Ur Leukocyte Esterase NEGATIVE (NEGATIVE) 03/25/19 20:53 Urine WBC (Auto) 0 /HPF 03/25/19 20:53 Urine RBC (Auto) 4 /HPF 03/25/19 20:53 Urine Ascorbic Acid NEGATIVE (NEGATIVE) 03/25/19 20:53 03/25/19 20:00 Troponin I 0.122 NT-Pro-B Natriuret Pep 8540 H Impressions: Chest X-Ray 03/25/19 20:15 IMPRESSION: 1. Infiltrate in the right lower lung field, likely a right lower lobe pneumonia. Plan Time Spent: Greater than 30 Minutes Stroke Is this a Stroke Patient?: No Acute Heart Failure - Is this a Heart Failure Patient?: No
[2019-03-30 16:52] VITALS: BP 119/48
== END 2019-03-30 17:54 | disposition home health service (06) | DRG 193 ==
LOC: ER 19:35 → EH 22:07 → 5 03-26 13:14
PROVIDERS: ADMIT Emergency Medicine; ATTEND Emergency Medicine
DX: J18.1 Lobar pneumonia, unspecified organism (principal); J96.01 Acute respiratory failure with hypoxia; N17.9 Acute kidney failure, unspecified; L03.115 Cellulitis of right lower limb; I50.32 Chronic diastolic (congestive) heart failure; E86.0 Dehydration; E87.6 Hypokalemia; E11.9 Type 2 diabetes mellitus without complications; K21.9 Gastro-esophageal reflux disease without esophagitis; Z96.641 Presence of right artificial hip joint; I25.10 Atherosclerotic heart disease of native coronary artery without angina pectoris; E03.9 Hypothyroidism, unspecified; E78.5 Hyperlipidemia, unspecified; I11.0 Hypertensive heart disease with heart failure; D72.825 Bandemia; M19.90 Unspecified osteoarthritis, unspecified site; Z95.5 Presence of coronary angioplasty implant and graft; Z90.710 Acquired absence of both cervix and uterus; Z83.3 Family history of diabetes mellitus; Z79.899 Other long term (current) drug therapy; Z88.5 Allergy status to narcotic agent; Z23 Encounter for immunization
CPT/HCPCS: 36415; 71045; 80048; 80053; 81001; 82550; 82803; 82962; 83036; 83605; 83735; 83880; 84439; 84443; 84481; 84484; 85025; 85027; 87040; 87150; 87186; 90686; 93005; 93010; 94799; 96365; 99291; J0456; J0692; J0696; J1644; J1956; J3490; J7060; J7120

== ENCOUNTER 2020-06-12 02:24 | Emergency (ER) | payer MEDICARE, MEDICAID ==
--- NOTE | 2020-06-12 04:44 | RADIOLOGY REPORT (SQ) ---
Pelvis and right hip x-ray two views on 06/12/2020 at 3:46 AM CLINICAL INDICATION: Right hip pain COMPARISON: 05/05/2012 FINDINGS: The patient is status post a right total hip arthroplasty. 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 The SI joints are well aligned. There is no dislocation. No acute fracture is noted. No hardware complication is noted. IMPRESSION: No acute abnormality.
[2020-06-12] MEDS ORDERED: TRAMADOL HCL 50 MG TABLET PO ONE (06:50)
--- NOTE | 2020-06-12 06:55 | ER Document Report ---
ED General - General Chief Complaint: Hip Pain Stated Complaint: RIGHT HIP PAIN Time Seen by Provider: 06/12/20 06:08 Primary Care Provider: ADENIKE HERBERT PA-C [Primary Care Provider] - Follow up as needed TRAVEL OUTSIDE OF THE [place] 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 No trauma reported. No fever. Patient has a history of bursitis and osteoarthritis. States the pain has been present for about 3 days. Current medications: Carvedilol [Coreg 6.25 mg Tablet] 6.25 mg PO Q12 09/09/18 Citalopram Hydrobromide [Celexa 20 mg Tablet] 20 mg PO DAILY 09/09/18 Clopidogrel Bisulfate [Plavix 75 mg Tablet] 75 mg PO DAILY 09/09/18 Fenofibrate Nanocrystallized [Tricor 48 mg Tablet] 48 mg PO DAILY 09/09/18 Furosemide [Lasix 40 mg Tablet] 40 mg PO DAILY 09/09/18 Levothyroxine Sodium [Synthroid] 125 mcg PO Q6AM 09/09/18 Lisinopril [Prinivil 10 mg Tablet] 10 mg PO DAILY 09/09/18 Pantoprazole Sodium [Protonix [address] Tablet] 20 mg PO DAILY 09/09/18 Potassium Chloride [Klor-Con 10 Meq Capsule ER] 10 meq PO DAILY 09/09/18 Cholecalciferol (Vitamin D3) [Vitamin D3 1000 Unit Tablet] 1,000 unit PO DAILY 03/26/19 Cyanocobalamin (Vitamin B-12) [Vitamin B-12 1000 mcg Tablet] 1,000 mcg PO DAILY 03/26/19 Docusate Sodium [Colace 100 mg Capsule] 100 mg PO DAILY 03/26/19 Patient has experienced nausea in the past taking propoxyphene and oxycodone. - Related Data Allergies/Adverse Reactions: propoxyphene napsylate [From Darvocet-N 100] Allergy (Unknown, Verified 09/08/18 14:36) oxycodone HCl [From Percocet] Allergy (Verified 09/08/18 14:36) Home Medications: Lisinopril. Tramadol. Citalopram. Aspirin. Diazepam. Klor-con. Lasix. Atorvastatin. Tricor. Omeprazole. Levothyroxine. Nitro. Plavix. Potassium. Furosemide Past Medical History - General Information source: Patient, [facility] Records - Social History Smoking Status: Never Smoker Chew tobacco use (# tins/day): No Frequency of alcohol use: None Drug Abuse: None Lives with: Intermediate Family History: COPD, DM - Past Medical History Cardiac Medical History: Reports: Hx Congestive Heart Failure, Hx Coronary Artery Disease, Hx Hypercholesterolemia, Hx Hypertension Denies: Hx Atrial Fibrillation Pulmonary Medical History: Reports: Hx Bronchitis Denies: Hx Asthma, Hx COPD, Hx Pneumonia, Hx Tuberculosis Neurological Medical History: Denies: Hx Seizures Endocrine Medical History: Reports: Hx Diabetes Mellitus Type 2, Hx Hypothyroidism. Denies: Hx Diabetes Mellitus Type 1, Hx Hyperthyroidism Renal/ Medical History: Denies: Hx Peritoneal Dialysis Malignancy Medical History: Reports: Hx Skin Cancer GI Medical History: Reports: Hx Gastroesophageal Reflux Disease. Denies: Hx Cirrhosis, Hx Hepatitis Musculoskeletal Medical History: Reports Hx Arthritis, Denies Hx Gout Skin Medical History: Denies Hx Eczema, Denies Hx Psoriasis Psychiatric Medical History: Denies: Hx Depression Infectious Medical History: Denies: Hx Hepatitis Past Surgical History: Reports: Hx Cardiac Catheterization, Hx Coronary Stent - X 1, Hx Hysterectomy, Hx Orthopedic Surgery - right hip replacement. Denies: Hx Pacemaker - Immunizations Immunizations up to date: Yes Hx Diphtheria, Pertussis, Tetanus Vaccination: No Hx Pneumococcal Vaccination: 06/10/08 Review of Systems - Review of Systems Notes: Constitutional: Negative for fever. HENT: Negative for sore throat. Eyes: Negative for visual changes. Cardiovascular: Negative for chest pain. Respiratory: Negative for shortness of breath. Gastrointestinal: Negative for abdominal pain, vomiting or diarrhea. Genitourinary: Negative for dysuria. Musculoskeletal: As per HPI. Skin: Negative for rash. Neurological: Negative for headaches, weakness or numbness. 10 point ROS negative except as marked above and in HPI. Physical Exam - Vital signs Vitals: Temp Pulse Resp BP Pulse Ox 98.0 F 68 18 160/62 H 98 06/12/20 03:03 06/12/20 03:03 06/12/20 03:03 06/12/20 03:03 06/12/20 03:03 - Notes Notes: GENERAL: Elderly female appearing in no acute distress until she moves at which time she seems to have moderate pain of the right hip.. SKIN: Good turgor no rashes. HEAD: Normocephalic atraumatic. EYES: Bilateral arcus senilis. PERRLA. EOMI. Conjunctivae and sclerae clear. EARS: CANALS AND TMS CLEAR. NOSE: CLEAR. MOUTH: Moist mucosa. Good dentition. No stridor or edema. No drooling. NECK: Supple. No masses or thyromegaly. No adenopathy. Carotids 2+ without bruits. No JVD. BACK: Symmetrical without tenderness. CHEST: Respirations unlabored. Breath sounds clear and symmetrical. HEART: Regular rhythm. No murmur gallop or rub. ABDOMEN: Soft nontender without masses, organomegaly or rebound. Bowel sounds normally active. No bruits. GENITALIA: Deferred. EXTREMITIES: Moderate degenerative changes interphalangeal joints of both hands. There is no shortening or abnormal rotation of the right lower extremity. Dec reased range of motion of the right hip actively and passively secondary to pain. There is tenderness over the trochanteric bursa on the right. There is no associated redness, warmth or swelling. No edema. No calf tenderness. Cap refill less than 1.5 seconds. Dorsalis pedis and posterior tibial pulses 3+ and symmetrical. NEUROLOGICAL: GCS 15. Alert and oriented x3. Fluent speech. Cranial nerves II through XII intact. Sensorimotor and cerebellar normal. Normal tone. PSYCHIATRIC: Appropriate affect. Course - Re-evaluation Re-evalutation: 06/12/20 06:56 Normal x-rays of the right hip per radiologist. Clinically I think this lady has trochanteric bursitis. She has a history of renal insufficiency and in view of this as well as her age I would feel NSAID would be contraindicated. I am going to cautiously try her on some tramadol and application of moist heat. She should follow-up with her primary provider and if she is unimproved over the next several days next consideration would be a steroid injection. They can follow-up with orthopedics as necessary. Findings, clinical impression and plan of treatment have been discussed with patient/family. Understanding of current findings and recommendations has been acknowledged by them and there is agreement regarding disposition and follow-up. - Vital Signs Vital signs: Temp Pulse Resp BP Pulse Ox 98.0 F 68 18 160/62 H 98 06/12/20 03:03 06/12/20 03:03 06/12/20 03:03 06/12/20 03:03 06/12/20 03:03 - Laboratory Results Critical Laboratory Results Reviewed: No Critical Results - Radiology Results Radiology Results Interpreted: 06/12/20 06:55 Hip/Pelvis X-Ray 06/12/20 03:32 IMPRESSION: No acute abnormality. Critical Radiology Results Reviewed: No Critical Results Discharge - Discharge Clinical Impression: Acute trochanteric bursitis hip Condition: Stable Disposition: SNF-Other Additional Instructions: Bursitis X-rays of your right hip today are normal. Based on your current findings you have been diagnosed as having bursitis of the right hip. Bursitis is an inflammation of a fluid pouch (bursa) found near joints. This is usually due to repeated minor irritation, or pressure directly on the bursa. On occasion, the bursitis can be due to infection (your doctor has checked for this). Sometimes the doctor decides to remove the fluid from the bursa with a needle. This may be to examine the fluid for infection or to ease the pressure caused by the fluid. The usual treatment is rest, local warmth, (or cold if the bursitis is caused by an acute injury), and antiinflammatory medication. Occasionally, an injection of cortisone is necessary. You should call the doctor for re-examination if the pain increases significantly, or if the area becomes severely swollen and red, or fever develops. Apply moist heat to area of the right hip several times a day. Initially take Tylenol for pain. If pain is not relieved by Tylenol you may supplement this with tramadol. If your discomfort is not improved over the next several days you may ask your doctor to refer you to an motor tune up specialist for consideration of steroid injection. Return here as needed for new or worsening symptoms. Prescriptions: Tramadol HCl [Ultram 50 mg Tablet] 50 mg PO Q4HP PRN #12 tab PRN Reason: Referrals: ADENIKE HERBERT PA-C [Primary Care Provider] - Follow up as needed
[2020-06-12 07:22] VITALS: BP 149/77
== END 2020-06-12 07:21 ==
LOC: ER 02:24
DX: M70.61 Trochanteric bursitis, right hip (principal); M25.551 Pain in right hip; I50.9 Heart failure, unspecified; I11.0 Hypertensive heart disease with heart failure; E78.00 Pure hypercholesterolemia, unspecified; E11.9 Type 2 diabetes mellitus without complications
CPT/HCPCS: 99284; 73502; A9270